=== PATIENT | female | born 1950 | race Caucasian/White ===

== ENCOUNTER 2017-04-20 11:35 | Emergency (ER) | payer MEDICARE, OTHER ==
[~2017-04-20] VITALS: Ht 160 cm; Wt 70.0 kg
[~2017-04-20 11:35] MED LIST: AMLO5 PO; ASPI81 PO; ESCI10TA PO; LOVA40TA PO; METO25 PO
[2017-04-20 11:49] VITALS: BP 154/90; PULSE 87; RESP 20; TEMP 97.3; O2SAT 97
--- NOTE | 2017-04-20 11:58 | PD ---
Physical Exam Time Seen by Provider: 11:57 Narrative 67 y/o female here with 2 weeks nausea, decreased appetite, vomiting, seen at urgent care and sent here. She reports some epigastric pain with palpation. Vital signs reviewed. Seen at triage desk. Awaiting bed placement. Data Data Last Documented VS Vital Signs Date Time Temp Pulse Resp B/P Pulse Ox O2 Delivery O2 Flow Rate FiO2 04/20/17 11:49 97.3 87 20 154/90 97 Room Air [facility] Medical Record Reviewed: Yes Supervised Visit with MARYJO: Oswaldo Kyle Apr 20, 2017 11:58
[2017-04-20 13:05] LABS: BLOOD, URINE SMALL (NEG); GLUCOSE,URINE 150 mg/dL (NEG); KETONE, URINE 10 mg/dL (NEG); NITRITE,URINE NEG (NEG); URINE COLOR YELLOW (YELLW/STRAW)
[2017-04-20 13:20] LABS: COMMENT (UR) CULT NOT INDICATED; CULTURE IF INDICATED CULT NOT INDICATED
[2017-04-20] MEDS ORDERED: PANTOPRAZOLE SODIUM 40 MG VIAL IV PUSH ONE (14:15)
[2017-04-20] MEDS ORDERED: MORPHINE SULFATE 8 MG/ML INJ IV PUSH ONE (14:15)
[2017-04-20] MEDS ORDERED: ONDANSETRON HCL 4 MG/2 ML VIAL IV PUSH ONE (14:15)
[2017-04-20] MEDS ORDERED: SODIUM CHLOR 0.9% 1000 ML INJ 1,000 ML IV ONE (14:15)
[2017-04-20] MEDS ORDERED: LISI10TA3 PO (14:21)
[2017-04-20] MEDS ORDERED: LOVA40TA PO (14:21)
--- NOTE | 2017-04-20 14:22 | PD ---
HPI Chief Complaint: Abdominal Pain Time Seen by Provider: 13:43 Travel History International Travel<30 days: No Contact w/Intl Traveler<30days: No Traveled to known affect area: No PFSH Past Medical History Arthritis: Yes Asthma: No Autoimmune Disease: No Blood Disorders: No Bipolar Disorder: Yes Anxiety: No Depression: No Heart Rhythm Problems: No Cancer: No Cardiovascular Problems: No High Cholesterol: Yes Chemotherapy: No Chest Pain: No Congestive Heart Failure: No COPD: No Cerebrovascular Accident: No Diabetes: Yes Patient Takes Glucophage: No Diminished Hearing: No Endocrine: Yes GERD: No Genitourinary: No Headaches: No Hepatitis: No Hiatal Hernia: No Hypertension: Yes Immune Disorder: No Implanted Vascular Access Dvce: Yes Kidney Stones: No Musculoskeletal: No Neurologic: No Psychiatric: Yes (Major depressive disorder, recurrent) Reproductive: No Respiratory: No Migraines: No Radiation Therapy: No Renal Failure: No Seizures: No Sickle Cell Disease: No Sleep Apnea: No Thyroid Disease: No Triglycerides - High: Yes Ulcer: No PNEUMOCCOCAL Vaccine (Year): 2009 Menopausal: Yes Past Surgical History Abdominal Surgery: No AICD: No Arteriovenous Shunt: No Cardiac Surgery: No Ear Surgery: No Endocrine Surgery: No Eye Surgery: No Genitourinary Surgery: No Gynecologic Surgery: No Hysterectomy: Yes Insulin Pump: No Joint Replacement: Yes (LEFT HIP AND KNEE) Oral Surgery: No Pacemaker: No Thoracic Surgery: No Other Surgery: Yes (HYSTERECTOMY 1982 12/11 ARTHROSCOPIC L KNEE) Social History Alcohol Use: Yes (OCC, HX ETOH ABUSE) Tobacco Use: No Substance Use: No Allergies-Medications (Allergen,Severity, Reaction): Coded Allergies: Codeine (Verified Allergy, Severe, Hives, 04/20/17) Penicillin (Unverified Allergy, Unknown, 04/20/17) Reported Meds & Prescriptions Reported Meds & Active Scripts Active Protonix (Pantoprazole Sodium) 40 Mg Tab 40 Mg PO DAILY Reported Lisinopril 10 Mg Tab 10 Mg PO DAILY Lovastatin 40 Mg Tab 40 Mg PO DAILY Data Data Last Documented VS Vital Signs Date Time Temp Pulse Resp B/P Pulse Ox O2 Delivery O2 Flow Rate FiO2 04/20/17 11:56 04/20/17 11:49 97.3 87 20 97 Room Air Orders Complete Blood Count With Diff (04/20/17 12:20) Comprehensive Metabolic Panel (04/20/17 12:20) Lipase (04/20/17 12:20) Urinalysis - C+S If Indicated (04/20/17 12:20) Ct Abd/Pel W Iv Contrast(Rout) (04/20/17 ) Sodium Chlor 0.9% 1000 Ml Inj (Ns 1000 M (04/20/17 14:15) Ondansetron Inj (Zofran Inj) (04/20/17 14:15) Morphine Inj (Morphine Inj) (04/20/17 14:15) Pantoprazole Inj (Protonix Inj) (04/20/17 14:15) Electrocardiogram (04/20/17 ) Stone Cutter / Telemetry ESSIE.[id number] (04/20/17 14:14) Iohexol 350 Inj (Omnipaque 350 Inj) (04/20/17 16:35) Troponin I (04/20/17 14:15) Labs Laboratory Tests Test 04/20/17 04/20/17 12:40 14:15 Urine Color YELLOW Urine Turbidity CLEAR Urine pH 6.0 Urine Specific [place] 1.008 Urine Protein NEG mg/dL Urine Glucose (UA) 150 mg/dL Urine Ketones 10 mg/dL Urine Occult Blood SMALL Urine Nitrite NEG Urine Bilirubin NEG Urine Urobilinogen LESS THAN 2.0 MG/DL Urine Leukocyte Esterase NEG Urine RBC 2 /hpf Urine WBC LESS THAN 1 /hpf Microscopic Urinalysis Comment CULT NOT INDICATED White Blood Count 11.0 TH/MM3 Red Blood Count 4.22 MIL/MM3 Hemoglobin 13.5 GM/DL Hematocrit 38.6 % Mean Corpuscular Volume 91.4 FL Mean Corpuscular Hemoglobin 31.9 PG Mean Corpuscular Hemoglobin 34.9 % Concent Red Cell Distribution Width 13.5 % Platelet Count 349 TH/MM3 Mean Platelet Volume 7.0 FL Neutrophils (%) (Auto) 80.4 % Lymphocytes (%) (Auto) 11.7 % Monocytes (%) (Auto) 5.8 % Eosinophils (%) (Auto) 1.7 % Basophils (%) (Auto) 0.4 % Neutrophils # (Auto) 8.8 TH/MM3 Lymphocytes # (Auto) 1.3 TH/MM3 Monocytes # (Auto) 0.6 TH/MM3 Eosinophils # (Auto) 0.2 TH/MM3 Basophils # (Auto) 0.0 TH/MM3 CBC Comment DIFF FINAL Differential Comment Sodium Level 131 MEQ/L Potassium Level 4.5 MEQ/L Chloride Level 93 MEQ/L Carbon Dioxide Level 26.1 MEQ/L Anion Gap 12 MEQ/L Blood Urea Nitrogen 10 MG/DL Creatinine 0.71 MG/DL Estimat Glomerular Filtration 82 ML/MIN Rate Random Glucose 130 MG/DL Calcium Level 9.4 MG/DL Total Bilirubin 0.5 MG/DL Aspartate Amino Transf 23 U/L (AST/SGOT) Alanine Aminotransferase 29 U/L (ALT/SGPT) Alkaline Phosphatase 59 U/L Troponin I LESS THAN 0.02 NG/ML Total Protein 8.0 GM/DL Albumin 4.0 GM/DL Lipase 118 U/L MDM Scripts Pantoprazole (Protonix)40 Mg Tab40 Mg PO DAILY #30 TAB Ref 0 Prov:Rajinder Mancuso MD 04/20/17 Rajinder Mancuso MD Apr 20, 2017 14:22
[2017-04-20 14:35] LABS: AUTOMATED NEUTROPHIL # 8.8 TH/MM3 (1.8-7.7); BASOPHIL % 0.4 % (0.0-2.0); EOSINOPHIL # 0.2 TH/MM3 (0-0.4); EOSINOPHIL % 1.7 % (0.0-4.0); HEMATOCRIT 38.6 % (35.0-46.0); HEMO FLAGS DIFF FINAL; LYMPH % 11.7 % (9.0-44.0); LYMPHOCYTE # 1.3 TH/MM3 (1.0-4.8); MEAN CELL VOLUME 91.4 FL (80.0-100.0); MEAN CORPUSCULAR HEMOGLOBIN 31.9 PG (27.0-34.0); MEAN CORPUSCULAR HGB CONC 34.9 % (32.0-36.0); MONO % 5.8 % (0.0-8.0); NEUT % 80.4 % (16.0-70.0); PLATELET COUNT 349 TH/MM3 (150-450); RED BLOOD COUNT 4.22 MIL/MM3 (4.00-5.30); RED CELL DISTRIBUTION WIDTH 13.5 % (11.6-17.2)
[2017-04-20 14:52] LABS: ALT (GPT) 29 U/L (10-53); ANION GAP 12 MEQ/L (5-15); AST (GOT) 23 U/L (15-37); BICARBONATE 26.1 MEQ/L (21.0-32.0); BLOOD UREA NITROGEN 10 MG/DL (7-18); CHLORIDE 93 MEQ/L (98-107); GLOMERULAR FILTRATION RATE 82 ML/MIN (>89); POTASSIUM 4.5 MEQ/L (3.5-5.1); SODIUM (NA) 131 MEQ/L (136-145)
[2017-04-20 14:55] LABS: ALKALINE PHOSPHATASE 59 U/L (45-117); TOTAL BILIRUBIN ADULT 0.5 MG/DL (0.2-1.0)
--- NOTE | 2017-04-20 16:13 | PD ---
HPI Chief Complaint: Abdominal Pain Time Seen by Provider: 13:43 Travel History International Travel<30 days: No Contact w/Intl Traveler<30days: No Traveled to known affect area: No History of Present Illness HPI 67-year-old female came to the emergency room with history of poor appetite for past 2 weeks. Patient says she has lost 5 pounds. She has been feeling very weak and dizzy. She went to see her primary care today because of this but was unable to make it to her office and decided to come here instead. Patient has history of pancreatitis in the past. She had quit drinking for 5 years but started again and has drank a lot over the past couple weeks. Her primary care thinks it could be pancreatitis again. She has been nauseous. Her last drink was today. She drank some beer. [facility] Past Medical History Narrative Medical List of her past medical, surgical, social and family history was reviewed from the nursing note. Arthritis: Yes Asthma: No Autoimmune Disease: No Blood Disorders: No Bipolar Disorder: Yes Anxiety: No Depression: No Heart Rhythm Problems: No Cancer: No Cardiovascular Problems: No High Cholesterol: Yes Chemotherapy: No Chest Pain: No Congestive Heart Failure: No COPD: No Cerebrovascular Accident: No Diabetes: Yes Patient Takes Glucophage: No Diminished Hearing: No Endocrine: Yes GERD: No Genitourinary: No Headaches: No Hepatitis: No Hiatal Hernia: No Hypertension: Yes Immune Disorder: No Implanted Vascular Access Dvce: Yes Kidney Stones: No Musculoskeletal: No Neurologic: No Psychiatric: Yes (Major depressive disorder, recurrent) Reproductive: No Respiratory: No Migraines: No Radiation Therapy: No Renal Failure: No Seizures: No Sickle Cell Disease: No Sleep Apnea: No Thyroid Disease: No Triglycerides - High: Yes Ulcer: No PNEUMOCCOCAL Vaccine (Year): 2009 Menopausal: Yes Past Surgical History Abdominal Surgery: No AICD: No Arteriovenous Shunt: No Cardiac Surgery: No Ear Surgery: No Endocrine Surgery: No Eye Surgery: No Genitourinary Surgery: No Gynecologic Surgery: No Hysterectomy: Yes Insulin Pump: No Joint Replacement: Yes (LEFT HIP AND KNEE) Oral Surgery: No Pacemaker: No Thoracic Surgery: No Other Surgery: Yes (HYSTERECTOMY 1982 12/11 ARTHROSCOPIC L KNEE) Social History Alcohol Use: Yes (OCC, HX ETOH ABUSE) Tobacco Use: No Substance Use: No Allergies-Medications (Allergen,Severity, Reaction): Coded Allergies: Codeine (Verified Allergy, Severe, Hives, 04/20/17) Penicillin (Unverified Allergy, Unknown, 04/20/17) Comments List of her allergies reviewed from the nursing note. Reported Meds & Prescriptions Reported Meds & Active Scripts Active Protonix (Pantoprazole Sodium) 40 Mg Tab 40 Mg PO DAILY Reported Lisinopril 10 Mg Tab 10 Mg PO DAILY Lovastatin 40 Mg Tab 40 Mg PO DAILY Narrative Medication List of her home medications reviewed from the nursing note. Review of Systems Except as stated in HPI: all other systems reviewed are Neg Physical Exam Narrative GENERAL: Awake, alert, moderate distress SKIN: Focused skin assessment warm/dry. HEAD: Atraumatic. Normocephalic. EYES: Pupils equal and round. No scleral icterus. No injection or drainage. ENT: No nasal bleeding or discharge. Mucous membranes pink and moist. NECK: Trachea midline. No JVD. CARDIOVASCULAR: Regular rate and rhythm. No murmur appreciated. RESPIRATORY: No accessory muscle use. Clear to auscultation. Breath sounds equal bilaterally. GASTROINTESTINAL: Abdomen soft, tender over the epigastric area., nondistended. Hepatic and splenic margins not palpable. MUSCULOSKELETAL: No obvious deformities. No clubbing. No cyanosis. No edema. NEUROLOGICAL: Awake and alert. No obvious cranial nerve deficits. Motor grossly within normal limits. Normal speech. PSYCHIATRIC: Appropriate mood and affect; insight and judgment normal. Data Data Last Documented VS Vital Signs Date Time Temp Pulse Resp B/P Pulse Ox O2 Delivery O2 Flow Rate FiO2 04/20/17 11:56 04/20/17 11:49 97.3 87 20 97 Room Air Orders Complete Blood Count With Diff (04/20/17 12:20) Comprehensive Metabolic Panel (04/20/17 12:20) Lipase (04/20/17 12:20) Urinalysis - C+S If Indicated (04/20/17 12:20) Ct Abd/Pel W Iv Contrast(Rout) (04/20/17 ) Sodium Chlor 0.9% 1000 Ml Inj (Ns 1000 M (04/20/17 14:15) Ondansetron Inj (Zofran Inj) (04/20/17 14:15) Morphine Inj (Morphine Inj) (04/20/17 14:15) Pantoprazole Inj (Protonix Inj) (04/20/17 14:15) Electrocardiogram (04/20/17 ) Spray Booth Operator / Telemetry ESSIE.Q8H (04/20/17 14:14) Iohexol 350 Inj (Omnipaque 350 Inj) (04/20/17 16:35) Troponin I (04/20/17 14:15) Labs Laboratory Tests Test 04/20/17 04/20/17 12:40 14:15 Urine Color YELLOW Urine Turbidity CLEAR Urine pH 6.0 Urine Specific [place] 1.008 Urine Protein NEG mg/dL Urine Glucose (UA) 150 mg/dL Urine Ketones 10 mg/dL Urine Occult Blood SMALL Urine Nitrite NEG Urine Bilirubin NEG Urine Urobilinogen LESS THAN 2.0 MG/DL Urine Leukocyte Esterase NEG Urine RBC 2 /hpf Urine WBC LESS THAN 1 /hpf Microscopic Urinalysis Comment CULT NOT INDICATED White Blood Count 11.0 TH/MM3 Red Blood Count 4.22 MIL/MM3 Hemoglobin 13.5 GM/DL Hematocrit 38.6 % Mean Corpuscular Volume 91.4 FL Mean Corpuscular Hemoglobin 31.9 PG Mean Corpuscular Hemoglobin 34.9 % Concent Red Cell Distribution Width 13.5 % Platelet Count 349 TH/MM3 Mean Platelet Volume 7.0 FL Neutrophils (%) (Auto) 80.4 % Lymphocytes (%) (Auto) 11.7 % Monocytes (%) (Auto) 5.8 % Eosinophils (%) (Auto) 1.7 % Basophils (%) (Auto) 0.4 % Neutrophils # (Auto) 8.8 TH/MM3 Lymphocytes # (Auto) 1.3 TH/MM3 Monocytes # (Auto) 0.6 TH/MM3 Eosinophils # (Auto) 0.2 TH/MM3 Basophils # (Auto) 0.0 TH/MM3 CBC Comment DIFF FINAL Differential Comment Sodium Level 131 MEQ/L Potassium Level 4.5 MEQ/L Chloride Level 93 MEQ/L Carbon Dioxide Level 26.1 MEQ/L Anion Gap 12 MEQ/L Blood Urea Nitrogen 10 MG/DL Creatinine 0.71 MG/DL Estimat Glomerular Filtration 82 ML/MIN Rate Random Glucose 130 MG/DL Calcium Level 9.4 MG/DL Total Bilirubin 0.5 MG/DL Aspartate Amino Transf 23 U/L (AST/SGOT) Alanine Aminotransferase 29 U/L (ALT/SGPT) Alkaline Phosphatase 59 U/L Troponin I LESS THAN 0.02 NG/ML Total Protein 8.0 GM/DL Albumin 4.0 GM/DL Lipase 118 U/L MDM Medical Decision Making Medical Screen Exam Complete: Yes Emergency Medical Condition: Yes Medical Record Reviewed: Yes Interpretation(s) Twelve-lead EKG was reviewed by me. Normal sinus rhythm, right axis deviation, right bundle branch block. Heart rate of 71 bpm. Differential Diagnosis Acute pancreatitis, pancreatic cancer, intra-abdominal cancer, acute cholecystitis Narrative Course 4:12 PM blood test results of back and her sodium is low. Patient has been given 1 L of IV fluid bolus. Awaiting for the CAT scan to be done and resulted. She was given pain medication. 5:10 PM blood test results of back and within normal limit. CAT scan is back in its normal. I'll discharge her home. Procedures EKG Prior to Arrival: No Diagnosis Primary Impression: History of alcohol abuse Additional Impressions: Acute gastritis Qualified Code: K29.00 - Acute gastritis without hemorrhage, unspecified gastritis type Abdominal pain Qualified Code: R10.13 - Epigastric pain Hyponatremia Referrals: Primary Care Physician Additional Instructions: Return to the ER if the condition worsens or any other new concerns. Otherwise follow-up with her primary care. Do not drink alcohol. Take the medication as per the prescription direction. Med/Other Pt SpecificInfo: Prescription(s) given Scripts Pantoprazole (Protonix)40 Mg Tab40 Mg PO DAILY #30 TAB Ref 0 Prov:Rajinder Mancuso MD 04/20/17 Disposition: 01 DISCHARGE HOME Condition: Stable Rajinder Mancuso MD Apr 20, 2017 16:13
[2017-04-20] MEDS ORDERED: IOHEXOL 350 MG/ML 10 ML VIAL (for RAD DIAG) IV ONE (16:35)
--- NOTE | 2017-04-20 16:46 | RADRPT ---
EXAM DATE/TIME: 04/20/2017 16:15 [place] COMPARISON: No previous studies available for comparison. INDICATIONS : Left lower abdomen pain and general weakness for three days. IV CONTRAST: 71 cc Omnipaque 350 (iohexol) IV ORAL CONTRAST: No oral contrast ingested. RADIATION DOSE: 9.96 CTDIvol (mGy) MEDICAL HISTORY : Hypertension. Pancreatitis. diabetes SURGICAL HISTORY : None. ENCOUNTER: Initial ACUITY: 3 days PAIN SCALE: 5/10 LOCATION: Left lower quadrant TECHNIQUE: Volumetric scanning of the abdomen and pelvis was performed. Using automated exposure control and ad justment of the mA and/or kV according to patient size, radiation dose was kept as low as reasonably achievable to obtain optimal diagnostic quality images. DICOM format image data is available electro nically for review and comparison. FINDINGS: LOWER LUNGS: The visualized lower lungs are clear. Small hiatal hernia. LIVER: Homogeneous density without lesion. There is no dilation of the biliary tree. No calcified gallston es. SPLEEN: Normal size without lesion. PANCREAS: Within normal limits. KIDNEYS: Normal in size and shape. There is no mass, stone or hydronephrosis. ADRENAL GLANDS: Within normal limits. VASCULAR: There is no aortic aneurysm. BOWEL/MESENTERY: The stomach, small bowel, and colon demonstrate no acute abnormality. There is no free intraperitone al air or fluid. ABDOMINAL WALL: Within normal limits. RETROPERITONEUM: There is no lymphadenopathy. BLADDER: No wall thickening or mass. REPRODUCTIVE: Within normal limits. INGUINAL: There is no lymphadenopathy or hernia. MUSCULOSKELETAL: Within normal limits for patient age. Left total hip arthroplasty. CONCLUSION: Small hiatal hernia. The bladder is distended. Paco Guidry MD on April 20, 2017 at 16:43 Board Certified Radiologist. This report was verified electronically.
[2017-04-20] MEDS ORDERED: PROT40TA PO (17:14)
--- NOTE | 2017-04-21 14:55 | EKG ---
Date Performed: 04/20/2017 Time Performed: 14:42:46 PTAGE: 67 years EKG: Sinus rhythm RIGHT BUNDLE BRANCH BLOCK LEFT ANTERIOR FASCICULAR BLOCK POSSIBLE ANTERIOR MYOCARDIAL INFARCTION ABN ORMAL ECG PREVIOUS TRACING : 06/09/2016 07.47 Compared to prior tracing no significant change DOCTOR: Harmeet Barreto Interpretating Date/Time 04/21/2017 14:52:09
== END 2017-04-20 17:26 | disposition home or self-care (01) ==
LOC: NEPD 11:35
DX: K29.00 Acute gastritis without bleeding (principal); E87.1 Hypo-osmolality and hyponatremia; F10.10 Alcohol abuse, uncomplicated
CPT/HCPCS: 74177; 80053; 81001; 83690; 84484; 85025; 93005; 96361; 96374; 96375; 99285; C9113; J2270; J2405; J7030; Q9967

== ENCOUNTER 2017-06-14 14:59 | Emergency (ER) | payer OTHER ==
[~2017-06-14] VITALS: Ht 160 cm; Wt 71.5 kg
[~2017-06-14 14:59] MED LIST changes: -AMLO5 PO; -ASPI81 PO; -ESCI10TA PO; +LISI10TA3 PO; -METO25 PO; +PROT40TA PO
[2017-06-14 15:01] VITALS: BP 174/93; PULSE 107; RESP 13; TEMP 97.8; O2SAT 98
[2017-06-14] MEDS ORDERED: FLUO10TA PO (16:04)
[2017-06-14] MEDS ORDERED: RISP2TAB2 PO (16:04)
[2017-06-14] MEDS ORDERED: FLUO20CA12 PO (16:04)
[2017-06-14] MEDS ORDERED: LAMO150T PO (16:04)
[2017-06-14] MEDS ORDERED: METF1000 PO (16:04)
[2017-06-14] MEDS ORDERED: SODIUM CHLOR 0.9% 1000 ML INJ 1,000 ML IV ONE (16:15)
--- NOTE | 2017-06-14 16:18 | PD ---
HPI Chief Complaint: Medical Clearance Time Seen by Provider: 16:02 Travel History International Travel<30 days: No Contact w/Intl Traveler<30days: No Traveled to known affect area: No History of Present Illness HPI This is a 67-year-old female who presents to the emergency department with depression. She says she hasn't been eating and drinking for the last 5 days. She says she just hasn't had an appetite. She feels hopeless and worthless and just doesn't feel like doing it anymore. She denies any suicidal ideation. She says she does drink alcohol but not every day. She says that she is on Prozac and Risperdal. She hasn't been taking her Prozac because it hasn't been working. She was started on a 2 months ago and her doctor told her that if she Would Make Her Feel Better but She Doesn't Feel like It's Been Helping. Her Symptoms of Been Constant and Severe. PFSH Past Medical History Arthritis: Yes Asthma: No Autoimmune Disease: No Blood Disorders: No Bipolar Disorder: Yes Anxiety: No Depression: No Heart Rhythm Problems: No Cancer: No Cardiovascular Problems: No High Cholesterol: Yes Chemotherapy: No Chest Pain: No Congestive Heart Failure: No COPD: No Cerebrovascular Accident: No Diabetes: Yes Patient Takes Glucophage: Yes Diminished Hearing: No Endocrine: Yes GERD: No Genitourinary: No Hepatitis: No Hiatal Hernia: No Hypertension: Yes Immune Disorder: No Implanted Vascular Access Dvce: Yes Kidney Stones: No Musculoskeletal: No Neurologic: No Psychiatric: Yes (Major depressive disorder, recurrent) Reproductive: No Respiratory: No Migraines: No Radiation Therapy: No Renal Failure: No Seizures: No Sickle Cell Disease: No Sleep Apnea: No Thyroid Disease: No Triglycerides - High: Yes Ulcer: No PNEUMOCCOCAL Vaccine (Year): 2009 Menopausal: Yes Past Surgical History Abdominal Surgery: No AICD: No Arteriovenous Shunt: No Cardiac Surgery: No Ear Surgery: No Endocrine Surgery: No Eye Surgery: No Genitourinary Surgery: No Gynecologic Surgery: No Hysterectomy: Yes Insulin Pump: No Joint Replacement: Yes (LEFT HIP AND KNEE) Oral Surgery: No Pacemaker: No Thoracic Surgery: No Social History Alcohol Use: Yes (OCC, HX ETOH ABUSE) Tobacco Use: No Substance Use: No Allergies-Medications (Allergen,Severity, Reaction): Coded Allergies: codeine (Unverified Allergy, Severe, Hives, 06/14/17) penicillin G (Unverified Allergy, Unknown, 06/14/17) Reported Meds & Prescriptions Reported Meds & Active Scripts Active Reported Relion Prime Blood Glucose Monitor (Device) 1 Mis Mis Kit OTHER DIRECTED Ibuprofen 200 Mg Tab 200 Mg PO Q6H PRN Diphenhydramine (Diphenhydramine HCl) 25 Mg Tab 25 Mg PO Q6H PRN Fluoxetine (Fluoxetine HCl) 20 Mg Capsule 30 Mg PO DAILY Lamotrigine 150 Mg Tab 150 Mg PO DAILY Risperidone 2 Mg Tab 2 Mg PO DAILY Metformin (Metformin HCl) 1,000 Mg Tab 1,000 Mg PO BIDPC With meals Lovastatin 40 Mg Tab 40 Mg PO DAILY Review of Systems Except as stated in HPI: all other systems reviewed are Neg Physical Exam Narrative GENERAL:Well appearing, no acute distress SKIN: Focused skin assessment warm and dry. HEAD: Atraumatic. Normocephalic. EYES: Pupils equal and round. No injection or drainage. ENT: Dry mucous membranes NECK: Trachea midline. CARDIOVASCULAR: Regular rate and rhythm. No murmur appreciated. RESPIRATORY: Clear to auscultation. Breath sounds equal bilaterally. GASTROINTESTINAL: Abdomen soft, non-tender, nondistended. MUSCULOSKELETAL: No obvious deformities. NEUROLOGICAL: Awake and alert. No obvious cranial nerve deficits. Moving all extremities. PSYCHIATRIC: Depressed mood, flat affect Data Data Last Documented VS Vital Signs Date Time Temp Pulse Resp B/P (MAP) Pulse Ox O2 Delivery O2 Flow Rate FiO2 06/15/17 13:26 06/15/17 13:24 68 18 96 Room Air 06/14/17 19:12 98.6 Orders Orders Complete Blood Count With Diff (06/14/17 16:06) Comprehensive Metabolic Panel (06/14/17 16:06) Psych Screen (06/14/17 16:06) ^ Insert Iv (06/14/17 16:06) Thyroid Stimulating Hormone (06/14/17 16:06) Urinalysis - C+S If Indicated (06/14/17 16:06) Sodium Chlor 0.9% 1000 Ml Inj (Ns 1000 M (06/14/17 16:15) Electrocardiogram (06/14/17 ) Troponin I (06/14/17 16:06) Alcohol (Ethanol) (06/14/17 16:59) Drug Screen, Random Urine (06/14/17 16:59) Urine Culture (06/14/17 17:45) Diet Diabetic (06/15/17 Breakfast) Diet Regular Basic (06/15/17 Lunch) Diet Regular Basic (06/15/17 Dinner) Labs Laboratory Tests Test 06/14/17 16:25 06/14/17 17:45 White Blood Count 11.7 TH/MM3 Red Blood Count 4.16 MIL/MM3 Hemoglobin 13.1 GM/DL Hematocrit 38.7 % Mean Corpuscular Volume 92.9 FL Mean Corpuscular Hemoglobin 31.5 PG Mean Corpuscular Hemoglobin Concent 33.8 % Red Cell Distribution Width 14.0 % Platelet Count 439 TH/MM3 Mean Platelet Volume 6.8 FL Neutrophils (%) (Auto) 79.4 % Lymphocytes (%) (Auto) 13.0 % Monocytes (%) (Auto) 6.5 % Eosinophils (%) (Auto) 0.6 % Basophils (%) (Auto) 0.5 % Neutrophils # (Auto) 9.3 TH/MM3 Lymphocytes # (Auto) 1.5 TH/MM3 Monocytes # (Auto) 0.8 TH/MM3 Eosinophils # (Auto) 0.1 TH/MM3 Basophils # (Auto) 0.1 TH/MM3 CBC Comment DIFF FINAL Differential Comment Blood Urea Nitrogen 12 MG/DL Creatinine 0.85 MG/DL Random Glucose 125 MG/DL Total Protein 7.6 GM/DL Albumin 3.9 GM/DL Calcium Level 9.0 MG/DL Alkaline Phosphatase 58 U/L Aspartate Amino Transf (AST/SGOT) 17 U/L Alanine Aminotransferase (ALT/SGPT) 21 U/L Total Bilirubin 0.4 MG/DL Sodium Level 129 MEQ/L Potassium Level 3.9 MEQ/L Chloride Level 95 MEQ/L Carbon Dioxide Level 23.7 MEQ/L Anion Gap 10 MEQ/L Estimat Glomerular Filtration Rate 67 ML/MIN Troponin I LESS THAN 0.02 NG/ML Thyroid Stimulating Hormone 3rd Gen 1.840 uIU/ML Ethyl Alcohol Level LESS THAN 2 MG/DL Urine Color LIGHT-YELLOW Urine Turbidity CLEAR Urine pH 5.5 Urine Specific [place] 1.005 Urine Protein NEG mg/dL Urine Glucose (UA) NEG mg/dL Urine Ketones NEG mg/dL Urine Occult Blood TRACE Urine Nitrite NEG Urine Bilirubin NEG Urine Urobilinogen LESS THAN 2.0 MG/DL Urine Leukocyte Esterase MOD Urine RBC 1 /hpf Urine WBC 17 /hpf Urine Squamous Epithelial Cells <1 /hpf Microscopic Urinalysis Comment CULTURE INDICATED Urine Opiates Screen NEG Urine Barbiturates Screen NEG Urine Amphetamines Screen NEG Urine Benzodiazepines Screen NEG Urine Cocaine Screen NEG Urine Cannabinoids Screen NEG MDM Medical Decision Making Medical Screen Exam Complete: Yes Emergency Medical Condition: Yes Medical Record Reviewed: Yes (patient has been admitted multiple times in the setting of intentional overdose in the past) Differential Diagnosis Depression, substance induced mood disorder, adjustment reaction Narrative Course This is a 67-year-old female who presents to the emergency department with depression. 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 Labs will be obtained and patient will be evaluated by psychiatry. Diamond Chu MD Jun 14, 2017 16:17
[2017-06-14 16:53] LABS: AUTOMATED NEUTROPHIL # 9.3 TH/MM3 (1.8-7.7); BASOPHIL # 0.1 TH/MM3 (0-0.2); BASOPHIL % 0.5 % (0.0-2.0); EOSINOPHIL # 0.1 TH/MM3 (0-0.4); EOSINOPHIL % 0.6 % (0.0-4.0); HEMATOCRIT 38.7 % (35.0-46.0); HEMO FLAGS DIFF FINAL; LYMPHOCYTE # 1.5 TH/MM3 (1.0-4.8); MEAN CELL VOLUME 92.9 FL (80.0-100.0); MEAN CORPUSCULAR HEMOGLOBIN 31.5 PG (27.0-34.0); MEAN CORPUSCULAR HGB CONC 33.8 % (32.0-36.0); MONO % 6.5 % (0.0-8.0); NEUT % 79.4 % (16.0-70.0); PLATELET COUNT 439 TH/MM3 (150-450); RED BLOOD COUNT 4.16 MIL/MM3 (4.00-5.30); WHITE BLOOD COUNT 11.7 TH/MM3 (4.0-11.0)
[2017-06-14 17:17] LABS: ALT (GPT) 21 U/L (10-53); ANION GAP 10 MEQ/L (5-15); AST (GOT) 17 U/L (15-37); BICARBONATE 23.7 MEQ/L (21.0-32.0); BLOOD UREA NITROGEN 12 MG/DL (7-18); CHLORIDE 95 MEQ/L (98-107); GLOMERULAR FILTRATION RATE 67 ML/MIN (>89); POTASSIUM 3.9 MEQ/L (3.5-5.1); SODIUM (NA) 129 MEQ/L (136-145)
[2017-06-14 17:21] LABS: ALKALINE PHOSPHATASE 58 U/L (45-117); TOTAL BILIRUBIN ADULT 0.4 MG/DL (0.2-1.0)
--- NOTE | 2017-06-14 17:46 | PD ---
Physical Exam Narrative Received sign out from previous team to follow up labs and medically clear for psych evaluation. 67yo F with PMH of depression here with feelings of hopelessness. Pt states she has been feeling more depressed since starting prozac 2 months ago and has not really want to eat since she is so depressed. She has not been wanting to do anything but sit in the chair. States she is a little hungry and would try to eat. Denies any other complaints. She wants to see a psychiatrist. Labs reviewed, WBC 11.7. Mild hyponatremia at 129. Pt had history of hyponatremia and Na was 131 last time. Pt given NS IVFx1. TSH normal. Troponin negative. Glucose 125. Alcohol negative. Utox negative. UA negative. Pt is medically clear for psych evaluation. Data Data Last Documented VS Vital Signs Date Time Temp Pulse Resp B/P (MAP) Pulse Ox O2 Delivery O2 Flow Rate FiO2 06/14/17 15:01 97.8 107 13 174/93 (120) 98 Orders Orders Complete Blood Count With Diff (06/14/17 16:06) Comprehensive Metabolic Panel (06/14/17 16:06) Psych Screen (06/14/17 16:06) ^ Insert Iv (06/14/17 16:06) Thyroid Stimulating Hormone (06/14/17 16:06) Urinalysis - C+S If Indicated (06/14/17 16:06) Sodium Chlor 0.9% 1000 Ml Inj (Ns 1000 M (06/14/17 16:15) Electrocardiogram (06/14/17 ) Troponin I (06/14/17 16:06) Alcohol (Ethanol) (06/14/17 16:59) Drug Screen, Random Urine (06/14/17 16:59) Urine Culture (06/14/17 17:45) Labs Laboratory Tests Test 06/14/17 16:25 06/14/17 17:45 White Blood Count 11.7 TH/MM3 Red Blood Count 4.16 MIL/MM3 Hemoglobin 13.1 GM/DL Hematocrit 38.7 % Mean Corpuscular Volume 92.9 FL Mean Corpuscular Hemoglobin 31.5 PG Mean Corpuscular Hemoglobin Concent 33.8 % Red Cell Distribution Width 14.0 % Platelet Count 439 TH/MM3 Mean Platelet Volume 6.8 FL Neutrophils (%) (Auto) 79.4 % Lymphocytes (%) (Auto) 13.0 % Monocytes (%) (Auto) 6.5 % Eosinophils (%) (Auto) 0.6 % Basophils (%) (Auto) 0.5 % Neutrophils # (Auto) 9.3 TH/MM3 Lymphocytes # (Auto) 1.5 TH/MM3 Monocytes # (Auto) 0.8 TH/MM3 Eosinophils # (Auto) 0.1 TH/MM3 Basophils # (Auto) 0.1 TH/MM3 CBC Comment DIFF FINAL Differential Comment Blood Urea Nitrogen 12 MG/DL Creatinine 0.85 MG/DL Random Glucose 125 MG/DL Total Protein 7.6 GM/DL Albumin 3.9 GM/DL Calcium Level 9.0 MG/DL Alkaline Phosphatase 58 U/L Aspartate Amino Transf (AST/SGOT) 17 U/L Alanine Aminotransferase (ALT/SGPT) 21 U/L Total Bilirubin 0.4 MG/DL Sodium Level 129 MEQ/L Potassium Level 3.9 MEQ/L Chloride Level 95 MEQ/L Carbon Dioxide Level 23.7 MEQ/L Anion Gap 10 MEQ/L Estimat Glomerular Filtration Rate 67 ML/MIN Troponin I LESS THAN 0.02 NG/ML Thyroid Stimulating Hormone 3rd Gen 1.840 uIU/ML Ethyl Alcohol Level LESS THAN 2 MG/DL Urine Color LIGHT-YELLOW Urine Turbidity CLEAR Urine pH 5.5 Urine Specific [place] 1.005 Urine Protein NEG mg/dL Urine Glucose (UA) NEG mg/dL Urine Ketones NEG mg/dL Urine Occult Blood TRACE Urine Nitrite NEG Urine Bilirubin NEG Urine Urobilinogen LESS THAN 2.0 MG/DL Urine Leukocyte Esterase MOD Urine RBC 1 /hpf Urine WBC 17 /hpf Urine Squamous Epithelial Cells <1 /hpf Microscopic Urinalysis Comment CULTURE INDICATED Urine Opiates Screen NEG Urine Barbiturates Screen NEG Urine Amphetamines Screen NEG Urine Benzodiazepines Screen NEG Urine Cocaine Screen NEG Urine Cannabinoids Screen NEG MDM Supervised Visit with MARYJO: No Diagnosis Primary Impression: Depression Qualified Codes: F32.9 - Major depressive disorder, single episode, unspecified Crista Fuller DO Jun 14, 2017 17:46
[2017-06-14 18:24] LABS: BLOOD, URINE TRACE (NEG); COMMENT (UR) CULTURE INDICATED; CULTURE IF INDICATED CULTURE INDICATED; GLUCOSE,URINE NEG (NEG); KETONE, URINE NEG (NEG); NITRITE,URINE NEG (NEG); PH, URINE 5.5 (5.0-8.5); SQUAMOUS EPITHELIAL CELL URINE <1 /hpf (0-5); URINE COLOR LIGHT-YELLOW (YELLW/STRAW)
[2017-06-14 19:12] VITALS: BP 176/77; PULSE 63; RESP 14; TEMP 98.6; O2SAT 99
[2017-06-15 02:21] VITALS: BP 125/64; PULSE 61; RESP 19; O2SAT 99
[2017-06-15] MEDS ORDERED: DIPH25TA2 PO (02:29)
[2017-06-15] MEDS ORDERED: IBUP200T2 PO (02:32)
[2017-06-15] MEDS ORDERED: BLOOMIS OTHER (02:44)
[2017-06-15 06:31] VITALS: BP 147/79; PULSE 68; RESP 18; O2SAT 96
[2017-06-15 13:24] VITALS: BP 147/79; PULSE 68; RESP 18; O2SAT 96
--- NOTE | 2017-06-15 13:31 | PD ---
History of Present Illness Chief Complaint: Medical Clearance Time Seen by Provider: 13:15 Travel History International Travel<30 Days: No Contact w/Intl Traveler<30days: No Known affected area: No Legal Status Legal Status: Voluntary History of Present Illness: Very pleasant 67-year-old female presents with concerns about her antidepressant medication. She has ongoing significant depression for 2 months and is treated by Dr. Krishnan. He has placed her on Lamictal, Risperdal and Prozac. The Prozac is not working and in fact taking away her appetite. She denies suicidal ideation and would like to go home. This physician recommended she stop the Prozac and informed her the actual metabolites of Prozac will be in her system for a couple of weeks. Therefore she does not need to taper that medicine. She also wants to return to Dr. Krishnan for further treatment and this physician agrees. PFSH Past Medical History Arthritis: Yes Asthma: No Autoimmune Disease: No Blood Disorders: No Bipolar Disorder: Yes Anxiety: No Depression: No Heart Rhythm Problems: No Cancer: No Cardiovascular Problems: No High Cholesterol: Yes Chemotherapy: No Chest Pain: No Congestive Heart Failure: No COPD: No Cerebrovascular Accident: No Diabetes: Yes Patient Takes Glucophage: Yes Diminished Hearing: No Endocrine: Yes GERD: No Genitourinary: No Hepatitis: No Hiatal Hernia: No Hypertension: Yes Immune Disorder: No Implanted Vascular Access Dvce: Yes Kidney Stones: No Musculoskeletal: No Neurologic: No Psychiatric: Yes (Major depressive disorder, recurrent) Reproductive: No Respiratory: No Migraines: No Radiation Therapy: No Renal Failure: No Seizures: No Sickle Cell Disease: No Sleep Apnea: No Thyroid Disease: No Triglycerides - High: Yes Ulcer: No PNEUMOCCOCAL Vaccine (Year): 2009 Menopausal: Yes Past Surgical History Abdominal Surgery: No AICD: No Arteriovenous Shunt: No Cardiac Surgery: No Ear Surgery: No Endocrine Surgery: No Eye Surgery: No Genitourinary Surgery: No Gynecologic Surgery: No Hysterectomy: Yes Insulin Pump: No Joint Replacement: Yes (LEFT HIP AND KNEE) Oral Surgery: No Pacemaker: No Thoracic Surgery: No Psychiatric History Psychiatric History Hx Psychiatric Treatment: Patient with a hx of major depressive d/o and bipolar d/o. Past inpatient admissons at [facility] beginning 2009 through 2015 for intentional OD, major depression and alcohol abuse, to name a few. Patient last seen by in Dr. Guthrie's clinic May 29, 2016 for therapy and medication management. History of Inpatient Treatment: Yes Guns or firearms in home: No Social History Hx Alcohol Use: Yes (OCC, HX ETOH ABUSE) Hx Tobacco Use: No Hx Substance Use: Yes (alcohol abuse) Substance Use Type: Alcohol Hx of Substance Use Treatment: Yes Allergies-Medications (Allergen,Severity, Reaction): Coded Allergies: codeine (Unverified Allergy, Severe, Hives, 06/14/17) penicillin G (Unverified Allergy, Unknown, 06/14/17) Reported Meds & Prescriptions Reported Meds & Active Scripts Active Reported Relion Prime Blood Glucose Monitor (Device) 1 Mis Mis Kit OTHER DIRECTED Ibuprofen 200 Mg Tab 200 Mg PO Q6H PRN Diphenhydramine (Diphenhydramine HCl) 25 Mg Tab 25 Mg PO Q6H PRN Fluoxetine (Fluoxetine HCl) 20 Mg Capsule 30 Mg PO DAILY Lamotrigine 150 Mg Tab 150 Mg PO DAILY Risperidone 2 Mg Tab 2 Mg PO DAILY Metformin (Metformin HCl) 1,000 Mg Tab 1,000 Mg PO BIDPC With meals Lovastatin 40 Mg Tab 40 Mg PO DAILY Review of Systems Except as stated in HPI: all other systems reviewed are Neg Exam Alert: Yes [place]: Person, Place, Date, Situation Mood: Calm Affect: Appropriate Speech: Clear, Logical Eye Contact: Normal Memory Intact: Remote Insight/Judgement Adequate MDM Medical Decision Making Medical Record Reviewed: Yes Assessment/Plan 67-year-old female with depression and inadequate response to treatment. Patient does not want admission and she is verbally diane for safety. She has no psychotic symptoms and her cognition is intact. She is competent to contract for safety and will return to her physician for further treatment. She does not meet Lees act criteria or involuntary psychiatric hospitalization criteria. Orders Orders Complete Blood Count With Diff (06/14/17 16:06) Comprehensive Metabolic Panel (06/14/17 16:06) Psych Screen (06/14/17 16:06) ^ Insert Iv (06/14/17 16:06) Thyroid Stimulating Hormone (06/14/17 16:06) Urinalysis - C+S If Indicated (06/14/17 16:06) Sodium Chlor 0.9% 1000 Ml Inj (Ns 1000 M (06/14/17 16:15) Electrocardiogram (06/14/17 ) Troponin I (06/14/17 16:06) Alcohol (Ethanol) (06/14/17 16:59) Drug Screen, Random Urine (06/14/17 16:59) Urine Culture (06/14/17 17:45) Diet Diabetic (06/15/17 Breakfast) Diet Regular Basic (06/15/17 Lunch) Results Vital Signs Date Time Temp Pulse Resp B/P (MAP) Pulse Ox O2 Delivery O2 Flow Rate FiO2 06/15/17 06:31 68 18 147/79 (101) 96 Room Air 06/15/17 02:21 61 19 125/64 (84) 99 Room Air 06/14/17 19:12 98.6 63 14 176/77 (110) 99 Room Air 06/14/17 15:01 97.8 107 13 174/93 (120) 98 Laboratory Tests Test 06/14/17 16:25 06/14/17 17:45 White Blood Count 11.7 Red Blood Count 4.16 Hemoglobin 13.1 Hematocrit 38.7 Mean Corpuscular Volume 92.9 Mean Corpuscular Hemoglobin 31.5 Mean Corpuscular Hemoglobin Concent 33.8 Red Cell Distribution Width 14.0 Platelet Count 439 Mean Platelet Volume 6.8 Neutrophils (%) (Auto) 79.4 Lymphocytes (%) (Auto) 13.0 Monocytes (%) (Auto) 6.5 Eosinophils (%) (Auto) 0.6 Basophils (%) (Auto) 0.5 Neutrophils # (Auto) 9.3 Lymphocytes # (Auto) 1.5 Monocytes # (Auto) 0.8 Eosinophils # (Auto) 0.1 Basophils # (Auto) 0.1 CBC Comment DIFF FINAL Differential Comment Blood Urea Nitrogen 12 Creatinine 0.85 Random Glucose 125 Total Protein 7.6 Albumin 3.9 Calcium Level 9.0 Alkaline Phosphatase 58 Aspartate Amino Transf (AST/SGOT) 17 Alanine Aminotransferase (ALT/SGPT) 21 Total Bilirubin 0.4 Sodium Level 129 Potassium Level 3.9 Chloride Level 95 Carbon Dioxide Level 23.7 Anion Gap 10 Estimat Glomerular Filtration Rate 67 Troponin I LESS THAN 0.02 Thyroid Stimulating Hormone 3rd Gen 1.840 Ethyl Alcohol Level LESS THAN 2 Urine Color LIGHT-YELLOW Urine Turbidity CLEAR Urine pH 5.5 Urine Specific [place] 1.005 Urine Protein NEG Urine Glucose (UA) NEG Urine Ketones NEG Urine Occult Blood TRACE Urine Nitrite NEG Urine Bilirubin NEG Urine Urobilinogen LESS THAN 2.0 Urine Leukocyte Esterase MOD Urine RBC 1 Urine WBC 17 Urine Squamous Epithelial Cells <1 Microscopic Urinalysis Comment CULTURE INDICATED Urine Opiates Screen NEG Urine Barbiturates Screen NEG Urine Amphetamines Screen NEG Urine Benzodiazepines Screen NEG Urine Cocaine Screen NEG Urine Cannabinoids Screen NEG Date/Time Source Procedure Growth Status 06/14/17 17:45 Urine Clean Catch Urine Culture Pending Worksheet Diagnosis Primary Impression: Adjustment disorder with depressed mood Marco Antonio Rousseau MD Jun 15, 2017 13:30
--- NOTE | 2017-06-15 21:04 | EKG ---
Date Performed: 06/14/2017 Time Performed: 16:22:21 PTAGE: 67 years EKG: Sinus rhythm MARKED RIGHT AXIS DEVIATION RIGHT BUNDLE BRANCH BLOCK ANTERIOR MYOCARDIAL INFARCTION ABNORMAL ECG PREVIOUS TRACING 04/20/2017 @ 14.42 SINCE PREVIOUS TRACING, THERE ARE NOW DEFINITE Q WAVE ANTER IORLY COMPATIBLE WITH ANTERIOR MYOCARDIAL INFARCTION OF UNDETERMINED AGE. DOCTOR: Marco Antonio Johnson Interpretating Date/Time 06/15/2017 21:04:04
== END 2017-06-15 14:59 | disposition home or self-care (01) ==
LOC: NEPD 14:59 → NEPJ 06-15 14:59
DX: F43.21 Adjustment disorder with depressed mood (principal); E11.9 Type 2 diabetes mellitus without complications; I10 Essential (primary) hypertension; E87.1 Hypo-osmolality and hyponatremia; R94.31 Abnormal electrocardiogram [ECG] [EKG]; Z79.84 Long term (current) use of oral hypoglycemic drugs; Z79.899 Other long term (current) drug therapy
CPT/HCPCS: 80053; 80307; 81001; 84443; 84484; 85025; 87086; 93005; 96360; 96361; 99284; J7030

== ENCOUNTER 2017-07-10 11:33 | Emergency (ER) | payer OTHER ==
[~2017-07-10] VITALS: Ht 165.1 cm; Wt 65.0 kg
[~2017-07-10 11:33] MED LIST changes: +BLOOMIS OTHER; +DIPH25TA2 PO; +FLUO20CA12 PO; +IBUP200T2 PO; +LAMO150T PO; -LISI10TA3 PO; +METF1000 PO; -PROT40TA PO; +RISP2TAB2 PO
[2017-07-10 12:33] VITALS: BP 121/67; PULSE 105; RESP 20; TEMP 98; O2SAT 96
--- NOTE | 2017-07-10 13:09 | PD ---
HPI Chief Complaint: Psychiatric Symptoms Time Seen by Provider: 12:55 Travel History International Travel<30 days: No Contact w/Intl Traveler<30days: No Traveled to known affect area: No History of Present Illness HPI 67-year-old female with reported history of bipolar disorder and depression presents via EMS for evaluation. The patient reports that she has been binge drinking wine since yesterday. She reports that today she fell and hit the left side of her head. She is not complaining of a left-sided headache, some double vision. She told the neighbor that she was feeling suicidal however she is currently denying it. Per chart review she has been seen here several times in the past for overdose attempts. She is denying toxic ingestions or suicide attempts today or recently. Her primary complaint at this time is left- sided parietal headache from the fall. Pain is constant, aching, no aggravating or relieving factors. Denies nausea, vomiting, neck or back pain, chest pain or shortness of breath, abdominal pain. She has no other complaints. PFSH Past Medical History Arthritis: Yes Asthma: No Autoimmune Disease: No Blood Disorders: No Bipolar Disorder: Yes Anxiety: No Depression: No Heart Rhythm Problems: No Cancer: No Cardiovascular Problems: No High Cholesterol: Yes Chemotherapy: No Chest Pain: No Congestive Heart Failure: No COPD: No Cerebrovascular Accident: No Diabetes: Yes Patient Takes Glucophage: No Diminished Hearing: No Endocrine: Yes GERD: No Genitourinary: No Hepatitis: No Hiatal Hernia: No Hypertension: Yes Immune Disorder: No Implanted Vascular Access Dvce: Yes Kidney Stones: No Musculoskeletal: No Neurologic: No Psychiatric: Yes (Major depressive disorder, recurrent) Reproductive: No Respiratory: No Migraines: No Radiation Therapy: No Renal Failure: No Seizures: No Sickle Cell Disease: No Sleep Apnea: No Thyroid Disease: No Triglycerides - High: Yes Ulcer: No PNEUMOCCOCAL Vaccine (Year): 2009 Menopausal: Yes Past Surgical History Abdominal Surgery: No AICD: No Arteriovenous Shunt: No Cardiac Surgery: No Ear Surgery: No Endocrine Surgery: No Eye Surgery: No Genitourinary Surgery: No Gynecologic Surgery: No Hysterectomy: Yes Insulin Pump: No Joint Replacement: Yes (LEFT HIP AND KNEE) Oral Surgery: No Pacemaker: No Thoracic Surgery: No Social History Alcohol Use: Yes (OCC, HX ETOH ABUSE) Tobacco Use: No Substance Use: Yes (alcohol abuse) Allergies-Medications (Allergen,Severity, Reaction): Coded Allergies: codeine (Unverified Allergy, Severe, Hives, 06/14/17) penicillin G (Unverified Allergy, Unknown, 06/14/17) Reported Meds & Prescriptions Reported Meds & Active Scripts Active No Active Prescriptions or Reported Medications Physical Exam Narrative GENERAL: Well-developed well-nourished female. SKIN: Warm and dry. HEAD: Atraumatic. Normocephalic. EYES: Pupils equal and round. No scleral icterus. No injection or drainage. ENT: No nasal bleeding or discharge. Mucous membranes pink and moist. NECK: Trachea midline. No JVD. CARDIOVASCULAR: Regular rate and rhythm. No murmur appreciated. RESPIRATORY: No accessory muscle use. Clear to auscultation. Breath sounds equal bilaterally. GASTROINTESTINAL: Abdomen soft, non-tender, nondistended. Hepatic and splenic margins not palpable. MUSCULOSKELETAL: No obvious deformities. No clubbing. No cyanosis. No edema. NEUROLOGICAL: Awake and alert. No obvious cranial nerve deficits. Motor grossly within normal limits. Slurred speech. PSYCHIATRIC: Insight and judgment are impaired by intoxication. Data Data Last Documented VS Vital Signs Date Time Temp Pulse Resp B/P (MAP) Pulse Ox O2 Delivery O2 Flow Rate FiO2 07/10/17 18:31 100 20 146/77 (100) 100 Room Air 07/10/17 15:58 98.7 Orders Orders Complete Blood Count With Diff (07/10/17 12:40) Comprehensive Metabolic Panel (07/10/17 12:40) Psych Screen (07/10/17 12:40) Alcohol (Ethanol) (07/10/17 12:40) Prothrombin Time / Inr (Pt) (07/10/17 12:49) Act Partial Throm Time (Ptt) (07/10/17 12:49) Ct Brain W/O Iv Contrast(Rout) (07/10/17 ) Tylenol (Acetaminophen) (07/10/17 13:00) Salicylates (Aspirin) (07/10/17 13:00) Salicylates (Aspirin) (07/10/17 13:01) Tylenol (Acetaminophen) (07/10/17 13:01) Drug Screen, Random Urine (07/10/17 14:07) Ondansetron Inj (Zofran Inj) (07/10/17 14:30) Alcohol Withdrawal Asmt-Ciwa ONCE (07/10/17 18:33) Flumazenil Inj (Romazicon Inj) (07/10/17 18:45) Lorazepam (Ativan) (07/10/17 18:45) Lorazepam Inj (Ativan Inj) (07/10/17 18:45) Lorazepam (Ativan) (07/10/17 18:45) Lorazepam Inj (Ativan Inj) (07/10/17 18:45) Lorazepam Inj (Ativan Inj) (07/10/17 18:45) Lorazepam Inj (Ativan Inj) (07/10/17 18:45) Labs Laboratory Tests Test 07/10/17 12:50 07/10/17 13:14 White Blood Count 14.9 TH/MM3 Red Blood Count 4.15 MIL/MM3 Hemoglobin 12.7 GM/DL Hematocrit 38.6 % Mean Corpuscular Volume 93.1 FL Mean Corpuscular Hemoglobin 30.6 PG Mean Corpuscular Hemoglobin Concent 32.8 % Red Cell Distribution Width 14.4 % Platelet Count 494 TH/MM3 Mean Platelet Volume 6.9 FL Neutrophils (%) (Auto) 85.0 % Lymphocytes (%) (Auto) 9.1 % Monocytes (%) (Auto) 5.3 % Eosinophils (%) (Auto) 0.1 % Basophils (%) (Auto) 0.5 % Neutrophils # (Auto) 12.7 TH/MM3 Lymphocytes # (Auto) 1.4 TH/MM3 Monocytes # (Auto) 0.8 TH/MM3 Eosinophils # (Auto) 0.0 TH/MM3 Basophils # (Auto) 0.1 TH/MM3 CBC Comment DIFF FINAL Differential Comment Prothrombin Time 10.2 SEC Prothromb Time International Ratio 0.9 RATIO Activated Partial Thromboplast Time 20.3 SEC Blood Urea Nitrogen 10 MG/DL Creatinine 0.85 MG/DL Random Glucose 150 MG/DL Total Protein 7.3 GM/DL Albumin 3.3 GM/DL Calcium Level 8.1 MG/DL Alkaline Phosphatase 77 U/L Aspartate Amino Transf (AST/SGOT) 32 U/L Alanine Aminotransferase (ALT/SGPT) 39 U/L Total Bilirubin 0.2 MG/DL Sodium Level 137 MEQ/L Potassium Level 4.0 MEQ/L Chloride Level 101 MEQ/L Carbon Dioxide Level 21.6 MEQ/L Anion Gap 14 MEQ/L Estimat Glomerular Filtration Rate 67 ML/MIN Salicylates Level LESS THAN 1.7 MG/DL Acetaminophen Level LESS THAN 2.0 MCG/ML Ethyl Alcohol Level 59 MG/DL Urine Opiates Screen NEG Urine Barbiturates Screen NEG Urine Amphetamines Screen NEG Urine Benzodiazepines Screen NEG Urine Cocaine Screen NEG Urine Cannabinoids Screen NEG MDM Medical Decision Making Medical Screen Exam Complete: Yes Emergency Medical Condition: Yes Medical Record Reviewed: Yes Differential Diagnosis Closed head injury, intoxication, polysubstance abuse, major depressive disorder , acute psychosis Narrative Course 67-year-old female with history of bipolar disorder and depression presents after becoming intoxicated and falling hitting her head. She told her neighbor that she was suicidal when she currently denies. She has been admitted several times in the past for overdose attempts and therefore psychiatric screening will be ordered. Plan is for basic lab work, CT brain. Mental health screening discussed with the patient. Psychiatric screen ordered. WBC 14.9, CT brain negative, CMP rate and glucose 150 calcium 8.1 otherwise unremarkable toxicology negative alcohol level 59. The patient is medically cleared for psychiatric disposition. Diagnosis Primary Impression: ALCOHOL ABUSE, UNCOMPLICATED Additional Impression: Depression Qualified Codes: F32.9 - Major depressive disorder, single episode, unspecified Scripts No Active Prescriptions or Reported Meds Oswaldo Fernandez Jul 10, 2017 13:09
[2017-07-10 13:35] LABS: AUTOMATED NEUTROPHIL # 12.7 TH/MM3 (1.8-7.7); BASOPHIL # 0.1 TH/MM3 (0-0.2); BASOPHIL % 0.5 % (0.0-2.0); EOSINOPHIL % 0.1 % (0.0-4.0); HEMATOCRIT 38.6 % (35.0-46.0); HEMO FLAGS DIFF FINAL; LYMPH % 9.1 % (9.0-44.0); LYMPHOCYTE # 1.4 TH/MM3 (1.0-4.8); MEAN CELL VOLUME 93.1 FL (80.0-100.0); MEAN CORPUSCULAR HEMOGLOBIN 30.6 PG (27.0-34.0); MEAN CORPUSCULAR HGB CONC 32.8 % (32.0-36.0); MONO % 5.3 % (0.0-8.0); PLATELET COUNT 494 TH/MM3 (150-450); RED BLOOD COUNT 4.15 MIL/MM3 (4.00-5.30); RED CELL DISTRIBUTION WIDTH 14.4 % (11.6-17.2); WHITE BLOOD COUNT 14.9 TH/MM3 (4.0-11.0)
[2017-07-10 13:44] LABS: PROTHROMBIN TIME - PATIENT 10.2 SEC (9.8-11.6)
[2017-07-10 13:45] LABS: APTT (PATIENT) 20.3 SEC (24.3-30.1); INTERNATIONAL NORMALIZED RATIO 0.9 RATIO
[2017-07-10 14:00] LABS: ALCOHOL 59 MG/DL (0-5); ANION GAP 14 MEQ/L (5-15); AST (GOT) 32 U/L (15-37); BICARBONATE 21.6 MEQ/L (21.0-32.0); BLOOD UREA NITROGEN 10 MG/DL (7-18); CHLORIDE 101 MEQ/L (98-107); GLOMERULAR FILTRATION RATE 67 ML/MIN (>89); SODIUM (NA) 137 MEQ/L (136-145)
[2017-07-10 14:03] LABS: ALKALINE PHOSPHATASE 77 U/L (45-117); ALT (GPT) 39 U/L (10-53); TOTAL BILIRUBIN ADULT 0.2 MG/DL (0.2-1.0)
[2017-07-10] MEDS ORDERED: ONDANSETRON HCL 4 MG/2 ML VIAL IVP ONE (14:30)
--- NOTE | 2017-07-10 14:39 | RADRPT ---
EXAM DATE/TIME: 07/10/2017 14:22 [place] COMPARISON: CT BRAIN W/O CONTRAST, March 14, 2016, 11:26. INDICATIONS : Altered mental status. Cephalgia. RADIATION DOSE: 31.04 CTDIvol (mGy) MEDICAL HISTORY : Hypertension. Diabetes mellitus type 2. SURGICAL HISTORY : Hysterectomy. ENCOUNTER: Initial ACUITY: 1 day PAIN SCALE: 0/10 LOCATION: cranial TECHNIQUE: Multiple contiguous axial images were obtained of the head. Using automated exposure control and adj ustment of the mA and/or kV according to patient size, radiation dose was kept as low as reasonably a chievable to obtain optimal diagnostic quality images. DICOM format image data is available electro nically for review and comparison. FINDINGS: CEREBRUM: The ventricles are normal for age. No evidence of midline shift, mass lesion, hemorrhage or acute in farction. No extra-axial fluid collections are seen. POSTERIOR FOSSA: The cerebellum and brainstem are intact. The 4th ventricle is midline. The cerebellopontine angle i s unremarkable. EXTRACRANIAL: The visualized portion of the orbits is intact. SKULL: The calvaria is intact. No evidence of skull fracture. CONCLUSION: Negative for acute process. Nicho Schwab MD FACR on July 10, 2017 at 14:37 Board Certified Radiologist. This report was verified electronically.
[2017-07-10 15:58] VITALS: BP 129/73; PULSE 96; RESP 17; TEMP 98.7; O2SAT 97
[2017-07-10 18:31] VITALS: BP 146/77; PULSE 100; RESP 20; O2SAT 100
[2017-07-10] MEDS ORDERED: FLUMAZENIL 0.5 MG/5 ML VIAL IV PUSH PRN (18:45)
[2017-07-10] MEDS ORDERED: LORazepam 2 MG TAB PO PRN (18:45)
[2017-07-10] MEDS ORDERED: LORazepam 2 MG/ML VIAL IV PUSH PRN ×4 (18:45)
[2017-07-10] MEDS ORDERED: ACETAMINOPHEN 325 MG TAB PO ONE (20:15)
[2017-07-10] MEDS: LORazepam 1 MG TAB PO PRN (21:07)
[2017-07-11 06:08] VITALS: BP 153/77; PULSE 75; RESP 18; O2SAT 96
[2017-07-11] MEDS: LORazepam 1 MG TAB PO PRN (06:36)
--- NOTE | 2017-07-11 08:34 | PD ---
Physical Exam Time Seen by Provider: 08:32 ANKIT Saenz has evaluated the patient and the patient will be discharged. Data Data Last Documented VS Vital Signs Date Time Temp Pulse Resp B/P (MAP) Pulse Ox O2 Delivery O2 Flow Rate FiO2 07/11/17 06:08 75 18 153/77 (102) 96 07/10/17 18:31 Room Air 07/10/17 15:58 98.7 Orders Orders Complete Blood Count With Diff (07/10/17 12:40) Comprehensive Metabolic Panel (07/10/17 12:40) Psych Screen (07/10/17 12:40) Alcohol (Ethanol) (07/10/17 12:40) Prothrombin Time / Inr (Pt) (07/10/17 12:49) Act Partial Throm Time (Ptt) (07/10/17 12:49) Ct Brain W/O Iv Contrast(Rout) (07/10/17 ) Salicylates (Aspirin) (07/10/17 13:01) Tylenol (Acetaminophen) (07/10/17 13:01) Drug Screen, Random Urine (07/10/17 14:07) Ondansetron Inj (Zofran Inj) (07/10/17 14:30) Alcohol Withdrawal Asmt-Ciwa ONCE (07/10/17 18:33) Flumazenil Inj (Romazicon Inj) (07/10/17 18:45) Lorazepam (Ativan) (07/10/17 18:45) Lorazepam Inj (Ativan Inj) (07/10/17 18:45) Lorazepam (Ativan) (07/10/17 18:45) Lorazepam Inj (Ativan Inj) (07/10/17 18:45) Lorazepam Inj (Ativan Inj) (07/10/17 18:45) Lorazepam Inj (Ativan Inj) (07/10/17 18:45) Acetaminophen (Tylenol) (07/10/17 20:15) Diet Regular Basic (07/11/17 Breakfast) Labs Laboratory Tests Test 07/10/17 12:50 07/10/17 13:14 White Blood Count 14.9 TH/MM3 Red Blood Count 4.15 MIL/MM3 Hemoglobin 12.7 GM/DL Hematocrit 38.6 % Mean Corpuscular Volume 93.1 FL Mean Corpuscular Hemoglobin 30.6 PG Mean Corpuscular Hemoglobin Concent 32.8 % Red Cell Distribution Width 14.4 % Platelet Count 494 TH/MM3 Mean Platelet Volume 6.9 FL Neutrophils (%) (Auto) 85.0 % Lymphocytes (%) (Auto) 9.1 % Monocytes (%) (Auto) 5.3 % Eosinophils (%) (Auto) 0.1 % Basophils (%) (Auto) 0.5 % Neutrophils # (Auto) 12.7 TH/MM3 Lymphocytes # (Auto) 1.4 TH/MM3 Monocytes # (Auto) 0.8 TH/MM3 Eosinophils # (Auto) 0.0 TH/MM3 Basophils # (Auto) 0.1 TH/MM3 CBC Comment DIFF FINAL Differential Comment Prothrombin Time 10.2 SEC Prothromb Time International Ratio 0.9 RATIO Activated Partial Thromboplast Time 20.3 SEC Blood Urea Nitrogen 10 MG/DL Creatinine 0.85 MG/DL Random Glucose 150 MG/DL Total Protein 7.3 GM/DL Albumin 3.3 GM/DL Calcium Level 8.1 MG/DL Alkaline Phosphatase 77 U/L Aspartate Amino Transf (AST/SGOT) 32 U/L Alanine Aminotransferase (ALT/SGPT) 39 U/L Total Bilirubin 0.2 MG/DL Sodium Level 137 MEQ/L Potassium Level 4.0 MEQ/L Chloride Level 101 MEQ/L Carbon Dioxide Level 21.6 MEQ/L Anion Gap 14 MEQ/L Estimat Glomerular Filtration Rate 67 ML/MIN Salicylates Level LESS THAN 1.7 MG/DL Acetaminophen Level LESS THAN 2.0 MCG/ML Ethyl Alcohol Level 59 MG/DL Urine Opiates Screen NEG Urine Barbiturates Screen NEG Urine Amphetamines Screen NEG Urine Benzodiazepines Screen NEG Urine Cocaine Screen NEG Urine Cannabinoids Screen NEG MDM Supervised Visit with MARYJO: No Narrative Course ANKIT Phelan has evaluated the patient, lifted the Lees act and the patient will be discharged home. Patient contracts safety. Denies suicidal or homicidal ideations. Patient will be provided community resource packet to [facility]/ [facility] for follow-up. Patient will also be provided information for AA as she has expressed that she wants to stop drinking. Has friends and family for support. Patient is medically cleared for discharge. Diagnosis Primary Impression: ALCOHOL ABUSE, UNCOMPLICATED Additional Impression: Depression Qualified Codes: F32.9 - Major depressive disorder, single episode, unspecified Referrals: [facility] (Out patient) [facility] Primary Care Physician Psychiatrist Violeta PDARON Behavioral Patient Instructions: Abuse of Alcohol (ED), Alcohol Dependence (ED), Alcohol Intoxication (ED), Depression (ED), General Instructions Additional Instruction: Contract safety to your self and others Stop drinking alcohol Follow-up with AA for support to stop drinking Follow-up with psychiatry Follow-up with primary care provider Follow-up with Saeed Rojo/NEREIDA Return to the emergency department immediately with worsening of symptoms Med/Other Pt SpecificInfo: No Meds Exist/No RX given Scripts No Active Prescriptions or Reported Meds Disposition: 01 DISCHARGE HOME Condition: Stable [place] Bravo Jul 11, 2017 08:34
[2017-07-11 08:46] VITALS: BP 153/77; TEMP 98.3
== END 2017-07-11 08:49 | disposition home or self-care (01) ==
LOC: NEPJ 11:33
DX: F10.10 Alcohol abuse, uncomplicated (principal); F32.9 Major depressive disorder, single episode, unspecified; E11.9 Type 2 diabetes mellitus without complications; I10 Essential (primary) hypertension; R51 Headache
CPT/HCPCS: 70450; 80053; 80307; 85025; 85610; 85730; 99284

== ENCOUNTER 2017-07-15 10:26 | Inpatient (IN) | payer OTHER, MEDICARE ==
[~2017-07-15] VITALS: Ht 162.6 cm; Wt 72.0 kg
[2017-07-15] VITALS (7 sets, daily range): BP systolic 141–164; BP diastolic 70–97; PULSE 84–108; RESP 15–22; TEMP 98.1–98.6; O2SAT 94–98
[2017-07-15] MEDS ORDERED: SODIUM CHLOR 0.9% 1000 ML INJ 1,000 ML IV ONE (10:56)
[2017-07-15] MEDS ORDERED: SODIUM CHLORIDE 0.9% FLUSH 10 ML FLUSH IVF PRN (11:00)
--- NOTE | 2017-07-15 11:20 | RADRPT ---
EXAM DATE/TIME: 07/15/2017 11:13 [place] COMPARISON: CHEST SINGLE AP, June 08, 2016, 11:38. INDICATIONS : Shortness of breath. MEDICAL HISTORY : None. SURGICAL HISTORY : None. ENCOUNTER: Initial ACUITY: 1 day PAIN SCORE: 0/10 LOCATION: Bilateral chest FINDINGS: A single view of the chest demonstrates the lungs to be symmetrically aerated without evidence of mas s, infiltrate or effusion. The cardiomediastinal contours are unremarkable. Osseous structures are intact. CONCLUSION: No acute disease. No significant change has occurred. Rio Vick MD on July 15, 2017 at 11:18 Board Certified Radiologist. This report was verified electronically.
[2017-07-15 11:27] LABS: AUTOMATED NEUTROPHIL # 15.9 TH/MM3 (1.8-7.7); BASOPHIL # 0.2 TH/MM3 (0-0.2); BASOPHIL % 1.2 % (0.0-2.0); HEMO FLAGS DIFF FINAL; LYMPHOCYTE # 2.1 TH/MM3 (1.0-4.8); MEAN CELL VOLUME 91.5 FL (80.0-100.0); MONO % 4.4 % (0.0-8.0); NEUT % 83.4 % (16.0-70.0); PLATELET COUNT 593 TH/MM3 (150-450); RED BLOOD COUNT 4.37 MIL/MM3 (4.00-5.30); RED CELL DISTRIBUTION WIDTH 14.3 % (11.6-17.2); WHITE BLOOD COUNT 19.1 TH/MM3 (4.0-11.0)
[2017-07-15 11:41] LABS: ALT (GPT) 29 U/L (10-53); ANION GAP 14 MEQ/L (5-15); AST (GOT) 23 U/L (15-37); BICARBONATE 20.8 MEQ/L (21.0-32.0); BLOOD UREA NITROGEN 15 MG/DL (7-18); CHLORIDE 99 MEQ/L (98-107); GLOMERULAR FILTRATION RATE 31 ML/MIN (>89); POTASSIUM 3.6 MEQ/L (3.5-5.1); SODIUM (NA) 134 MEQ/L (136-145)
[2017-07-15 11:42] LABS: ALCOHOL LESS THAN 3 MG/DL (0-5); ALKALINE PHOSPHATASE 81 U/L (45-117); TOTAL BILIRUBIN ADULT 0.7 MG/DL (0.2-1.0)
[2017-07-15 11:44] LABS: ACETAMINOPHEN LESS THAN 2.0 MCG/ML (10.0-30.0)
--- NOTE | 2017-07-15 11:57 | PD ---
HPI Chief Complaint: OD/ Ingestion Time Seen by Provider: 10:56 Travel History International Travel<30 days: No Contact w/Intl Traveler<30days: No Traveled to known affect area: No History of Present Illness HPI This is a 67-year-old female with history of alcohol abuse, diabetes mellitus, bipolar disorder, who presents here today after ingesting rubbing alcohol, Benadryl, Tylenol tablets. The patient states that she's been taking 2 g of Tylenol daily for several days. She reports taking 450 mg Benadryl tablets this morning at 8 AM. She also reports drinking nearly a bottle of rubbing alcohol. The patient states that she was trying to get "high". Patient states she stopped drinking a couple days ago and then had the urge to drink again. She usually drinking regular alcohol however did not have that near her at the time that she had craving. She denies any suicidal or homicidal ideation. She has no other complaints the time of my examination. PFSH Past Medical History Hx Anticoagulant Therapy: No Arthritis: Yes Asthma: No Autoimmune Disease: No Blood Disorders: No Bipolar Disorder: Yes Anxiety: No Depression: No Heart Rhythm Problems: No Cancer: No Cardiovascular Problems: No High Cholesterol: Yes Chemotherapy: No Chest Pain: No Congestive Heart Failure: No COPD: No Cerebrovascular Accident: No Diabetes: Yes Patient Takes Glucophage: No Diminished Hearing: No Endocrine: Yes GERD: No Genitourinary: No Hepatitis: No Hiatal Hernia: No Hypertension: Yes Immune Disorder: No Implanted Vascular Access Dvce: Yes Kidney Stones: No Musculoskeletal: No Neurologic: No Psychiatric: Yes (Major depressive disorder, recurrent) Reproductive: No Respiratory: No Migraines: No Radiation Therapy: No Renal Failure: No Seizures: No Sickle Cell Disease: No Sleep Apnea: No Thyroid Disease: No Triglycerides - High: Yes Ulcer: No Tetanus Vaccination: Unknown Influenza Vaccination: Yes PNEUMOCCOCAL Vaccine (Year): 2009 ?: Not Menopausal: Yes Past Surgical History Abdominal Surgery: No AICD: No Arteriovenous Shunt: No Cardiac Surgery: No Ear Surgery: No Endocrine Surgery: No Eye Surgery: No Genitourinary Surgery: No Gynecologic Surgery: No Hysterectomy: Yes Insulin Pump: No Joint Replacement: Yes (LEFT HIP AND KNEE) Oral Surgery: No Pacemaker: No Thoracic Surgery: No Social History Alcohol Use: Yes (OCC, HX ETOH ABUSE) Tobacco Use: No Substance Use: No (alcohol abuse) Allergies-Medications (Allergen,Severity, Reaction): Coded Allergies: codeine (Unverified Allergy, Severe, Hives, 06/14/17) penicillin G (Unverified Allergy, Unknown, 06/14/17) Reported Meds & Prescriptions Reported Meds & Active Scripts Active No Active Prescriptions or Reported Medications Review of Systems Except as stated in HPI: all other systems reviewed are Neg General / Constitutional: No: Fever, Chills HENT: No: Headaches, Lightheadedness, Neck Pain Cardiovascular: No: Chest Pain or Discomfort, Palpitations Respiratory: No: Cough, Shortness of Breath Gastrointestinal: No: Nausea, Vomiting, Abdominal Pain Genitourinary: No: Frequency, Dysuria Musculoskeletal: No: Weakness, Pain Neurologic: No: Weakness, Dizziness, Headache, Change in Mentation, Slurred Speech Psychiatric: Positive: Mood Disorder (bipolar disorder), Substance Abuse ( alcohol abuse), No: Suicidal Ideations, Homicidal Ideation Physical Exam Narrative GENERAL: Well-developed well-nourished female in no acute respiratory distress. SKIN: Focused skin assessment warm/dry. HEAD: Atraumatic. Normocephalic. EYES: Pupils equal and round. No scleral icterus. No injection or drainage. ENT: No nasal bleeding or discharge. Mucous membranes pink and moist. NECK: Trachea midline. No JVD. Supple CARDIOVASCULAR: Regular rate and rhythm. No murmur appreciated. RESPIRATORY: No accessory muscle use. Clear to auscultation. Breath sounds equal bilaterally. GASTROINTESTINAL: Abdomen soft, non-tender, nondistended. Hepatic and splenic margins not palpable. MUSCULOSKELETAL: No obvious deformities. No clubbing. No cyanosis. No edema. NEUROLOGICAL: Awake and alert. No obvious cranial nerve deficits. Motor grossly within normal limits. Normal speech. PSYCHIATRIC: Poor insight and poor judgment. Data Data Last Documented VS Vital Signs Date Time Temp Pulse Resp B/P (MAP) Pulse Ox O2 Delivery O2 Flow Rate FiO2 07/15/17 12:00 94 15 143/84 (103) 95 Room Air 07/15/17 10:35 98.4 Orders Orders Complete Blood Count With Diff (07/15/17 10:56) Comprehensive Metabolic Panel (07/15/17 10:56) Osmolality, Urine (07/15/17 10:56) Urinalysis - C+S If Indicated (07/15/17 10:56) Chest, Single Ap (07/15/17 10:56) Iv Access Insert/Monitor (07/15/17 10:56) Ecg Monitoring (07/15/17 10:56) Oximetry (07/15/17 10:56) Sodium Chloride 0.9% Flush (Ns Flush) (07/15/17 11:00) Sodium Chlor 0.9% 1000 Ml Inj (Ns 1000 M (07/15/17 10:56) Call Poison Control (07/15/17 10:56) Drug Screen, Random Urine (07/15/17 10:56) Alcohol (Ethanol) (07/15/17 10:56) Salicylates (Aspirin) (07/15/17 10:56) Tylenol (Acetaminophen) (07/15/17 10:56) Electrocardiogram (07/15/17 13:14) Ckmb (Isoenzyme) Profile (07/15/17 13:17) Troponin I (07/15/17 13:17) Admit Order (Ed Use Only) (07/15/17 13:34) Labs Laboratory Tests Test 07/15/17 10:40 07/15/17 12:15 White Blood Count 19.1 TH/MM3 Red Blood Count 4.37 MIL/MM3 Hemoglobin 14.0 GM/DL Hematocrit 40.0 % Mean Corpuscular Volume 91.5 FL Mean Corpuscular Hemoglobin 32.0 PG Mean Corpuscular Hemoglobin Concent 35.0 % Red Cell Distribution Width 14.3 % Platelet Count 593 TH/MM3 Mean Platelet Volume 6.7 FL Neutrophils (%) (Auto) 83.4 % Lymphocytes (%) (Auto) 11.0 % Monocytes (%) (Auto) 4.4 % Eosinophils (%) (Auto) 0.0 % Basophils (%) (Auto) 1.2 % Neutrophils # (Auto) 15.9 TH/MM3 Lymphocytes # (Auto) 2.1 TH/MM3 Monocytes # (Auto) 0.8 TH/MM3 Eosinophils # (Auto) 0.0 TH/MM3 Basophils # (Auto) 0.2 TH/MM3 CBC Comment DIFF FINAL Differential Comment Blood Urea Nitrogen 15 MG/DL Creatinine 1.65 MG/DL Random Glucose 175 MG/DL Total Protein 7.6 GM/DL Albumin 3.5 GM/DL Calcium Level 8.8 MG/DL Alkaline Phosphatase 81 U/L Aspartate Amino Transf (AST/SGOT) 23 U/L Alanine Aminotransferase (ALT/SGPT) 29 U/L Total Bilirubin 0.7 MG/DL Sodium Level 134 MEQ/L Potassium Level 3.6 MEQ/L Chloride Level 99 MEQ/L Carbon Dioxide Level 20.8 MEQ/L Anion Gap 14 MEQ/L Estimat Glomerular Filtration Rate 31 ML/MIN Salicylates Level LESS THAN 1.7 MG/DL Acetaminophen Level LESS THAN 2.0 MCG/ML Ethyl Alcohol Level LESS THAN 3 MG/DL Urine Color YELLOW Urine Turbidity CLEAR Urine pH 5.5 Urine Specific [place] 1.014 Urine Protein TRACE mg/dL Urine Glucose (UA) NEG mg/dL Urine Ketones 40 mg/dL Urine Occult Blood TRACE Urine Nitrite NEG Urine Bilirubin NEG Urine Urobilinogen LESS THAN 2.0 MG/DL Urine Leukocyte Esterase NEG Urine RBC 1 /hpf Urine WBC 1 /hpf Urine Mucus FEW /lpf Microscopic Urinalysis Comment CATH-CULT NOT IND Urine Osmolality 493 MOSM/KG Urine Opiates Screen NEG Urine Barbiturates Screen NEG Urine Amphetamines Screen NEG Urine Benzodiazepines Screen NEG Urine Cocaine Screen NEG Urine Cannabinoids Screen NEG MDM Medical Decision Making Medical Screen Exam Complete: Yes Emergency Medical Condition: Yes Differential Diagnosis Methanol overdose versus Tylenol overdose versus Benadryl overdose versus acute manic episode Narrative Course 6-7 year old female presents after ingesting methanol, Benadryl, Tylenol. The patient states she was trying to get "high". Patient has a history of alcohol abuse. Patient also has history of bipolar disorder and diabetes mellitus. She denies suicidal ideation. She states she was trying to get high. The patient was seen here 5 days ago and at that time had a normal creatinine. The patient's creatinine today is 1.67 which is double from what it was 5 days ago. Patient's white count is also 19.1 her blood sugar is 176. Urinalysis shows ketones with a few red blood cells. The patient's urine osmolality is within normal range. The patient's bicarbonate was 20.8. Given her acute renal failure, patient will be admitted to the hospital as a full admission. She'll need a nephrology consult. She is currently being hydrated. The case was discussed with Dr. Dhaval Angel, [place] [facility]ist, who is agreed for the admission. Diagnosis Primary Impression: Acute kidney injury Additional Impressions: Leukocytosis, unspecified methanol ingestion QT prolongation Diabetes mellitus Acidosis Bipolar 1 disorder Admitting Information Admitting Physician Requests: Admit Scripts No Active Prescriptions or Reported Meds Gerson Wood MD Jul 15, 2017 11:57
[2017-07-15 12:46] LABS: BLOOD, URINE TRACE (NEG); COMMENT (UR) CATH-CULT NOT IND; CULTURE IF INDICATED CATH CULTURE NOT IND; GLUCOSE,URINE NEG (NEG); KETONE, URINE 40 mg/dL (NEG); MUCUS URINE FEW /lpf (OCC); NITRITE,URINE NEG (NEG); PH, URINE 5.5 (5.0-8.5); URINE COLOR YELLOW (YELLW/STRAW)
[2017-07-15 14:12] LABS: BLOOD GAS BASE EXCESS -0.1 mmol/L (-2-2); BLOOD GAS CARBOXYHEMOGLOBIN 2.2 % (0-4); BLOOD GAS HCO3 23 mmol/L (22-26); BLOOD GAS METHEMOGLOBIN 0.6 % (0-2); BLOOD GAS O2 HGB SATURATION 94 % (90-100); BLOOD GAS PCO2 30 mmHg (38-42); BLOOD GAS PO2 78 mmHG (61-120); BLOOD GAS TOTAL HGB 12.8 G/DL (12.0-16.0); CRITICAL VALUE NO; DRAW SITE BR; NUMBER OF ARTERIAL PUNCTURES 2; OXYGEN DEVICE RA; STAT YES; TEMP CORR TO 98.6; ULNAR PULSE PRESENT
[2017-07-15] MEDS ORDERED: ONDANSETRON HCL 4 MG/2 ML VIAL IVP PRN (14:15)
[2017-07-15] MEDS ORDERED: LACTULOSE SYRUP 20 GM/30 ML CUP PO PRN (14:15)
[2017-07-15] MEDS ORDERED: DEXTROSE 50% IN WATER 50 ML VIAL(D50) IV PUSH PRN (14:15)
[2017-07-15] MEDS ORDERED: SENNOSIDES 8.6 MG TAB PO PRN (14:15)
[2017-07-15] MEDS ORDERED: GLUCAGON 1 MG/ML VIAL OTHER PRN (14:15)
[2017-07-15] MEDS ORDERED: LORazepam 2 MG/ML VIAL IV PUSH PRN ×3 (14:15)
[2017-07-15] MEDS ORDERED: MAGNESIUM HYDROXIDE SUSP 30 ML CUP PO PRN (14:15)
[2017-07-15] MEDS ORDERED: LORazepam 2 MG TAB PO PRN (14:15)
[2017-07-15] MEDS ORDERED: BISACODYL 10 MG SUPP RECTAL PRN (14:15)
[2017-07-15] MEDS ORDERED: NALOXONE HCL 0.4 MG/ML AMP IV PUSH PRN (14:15)
[2017-07-15] MEDS ORDERED: FLUMAZENIL 0.5 MG/5 ML VIAL IV PUSH PRN (14:15)
--- NOTE | 2017-07-15 14:29 | HHI.HP ---
HPI Service [facility] Hospitalists Primary Care Physician Unknown Admission Diagnosis acute kidney injury, methanol ingestion, tylenol abuse, diabetes bill Diagnoses: Chief Complaint: "Drinking too much" Travel History International Travel<30 Days: No Contact w/Intl Traveler <30 Da: No Traveled to Known Affected Are: No Sepsis Criteria SIRS Criteria (2 or more): Heart rate over 90, RR > 20 or PaCO2 < 32, WBC > 65694, < 4000 or > 10% bands Sepsis Criteria (SIRS+source): Infect source susp/known Severe Sepsis (+one): Acute Oliguria/Renal Failure Criteria Outcome: Meets severe sepsis criteria History of Present Illness Written by Soha Patel, acting as scribe for Dr. Angel on 07/15/17 at 14:03. This is a 67-year-old female with past medical history significant for alcohol abuse, diabetes, depression and bipolar disorder who presents to [facility] ED after ingesting nearly a bottle of rubbing alcohol and taking 5-6 Benadryl and Tylenol this morning. Patient denies any attempt to harm herself and states the ingestion was "to get high". Patient reports that she stopped drinking several days ago but then had the urge to drink again. She normally drinks regular alcohol but since she did not have any on hand she opted drink rubbing alcohol instead. Patient admits to a long history of alcohol abuse. She states she's tried AA in the past but didn't like it. Per review of the medical record, she was admitted in June of last year after ingesting Listerine. Patient denies any complaints at present. She denies any fever, chills, headache, vision changes, nausea, vomiting, chest pain, shortness of breath, abdominal pain, urinary complaints, diarrhea or constipation. Review of Systems Except as stated in HPI: all other systems reviewed are Neg Past Family Social History Past Medical History History of alcohol abuse with multiple hospitalizations Diabetes mellitus Major depression Anxiety Dyslipidemia Past Surgical History Left total hip replacement Hysterectomy Reported Medications No Active Prescriptions or Reported Medications Allergies: Coded Allergies: codeine (Unverified Allergy, Severe, Hives, 06/14/17) penicillin G (Unverified Allergy, Unknown, 06/14/17) Active Ordered Medications Current Medications Medications (Trade) Dose Ordered Sig/Gia Route Start Time Stop Time Status Last Admin (NS Flush) 2 ml UNSCH PRN IVF 07/15/17 11:00 07/15/17 11:07 Family History Patient denies any significant family medical history. Social History Patient admits to a long history of alcohol abuse. She denies any tobacco use or illicit drug use. Physical Exam Vital Signs Vital Signs Date Time Temp Pulse Resp B/P (MAP) Pulse Ox O2 Delivery O2 Flow Rate FiO2 07/15/17 12:00 94 15 143/84 (103) 95 Room Air 07/15/17 11:15 96 22 153/81 (105) 96 Room Air 07/15/17 10:35 98.4 108 20 164/97 (119) 94 Room Air 07/15/17 10:35 98.4 108 15 164/97 (119) 94 07/15/17 10:30 94 Room Air Physical Exam GENERAL: This is a well-nourished, well-developed patient, in no apparent distress. Awake and alert. Appears comfortable at present. SKIN: No rashes, ecchymoses or lesions. Cool and dry. HEAD: Atraumatic. Normocephalic. No temporal or scalp tenderness. EYES: Pupils equal round and reactive. Extraocular motions intact. No scleral icterus. No injection or drainage. ENT: Nose without bleeding, purulent drainage. Throat without erythema, tonsillar hypertrophy or exudate. Uvula midline. Airway patent. NECK: Trachea midline. No lymphadenopathy. Supple, nontender, no meningeal signs. CARDIOVASCULAR: Regular rate and rhythm without murmurs, gallops, or rubs. RESPIRATORY: Clear to auscultation. Breath sounds equal bilaterally. No wheezes , rales, or rhonchi. GASTROINTESTINAL: Abdomen soft, non-tender, nondistended. No hepato-splenomegaly , or palpable masses. No guarding. MUSCULOSKELETAL: Extremities without clubbing, cyanosis, or edema. No joint tenderness, effusion, or edema noted. No calf tenderness. NEUROLOGICAL: Awake and alert. Able to extremity spontaneously. Nonfocal. Normal speech. Laboratory Laboratory Tests Test 07/15/17 10:40 07/15/17 12:15 White Blood Count 19.1 Red Blood Count 4.37 Hemoglobin 14.0 Hematocrit 40.0 Mean Corpuscular Volume 91.5 Mean Corpuscular Hemoglobin 32.0 Mean Corpuscular Hemoglobin Concent 35.0 Red Cell Distribution Width 14.3 Platelet Count 593 Mean Platelet Volume 6.7 Neutrophils (%) (Auto) 83.4 Lymphocytes (%) (Auto) 11.0 Monocytes (%) (Auto) 4.4 Eosinophils (%) (Auto) 0.0 Basophils (%) (Auto) 1.2 Neutrophils # (Auto) 15.9 Lymphocytes # (Auto) 2.1 Monocytes # (Auto) 0.8 Eosinophils # (Auto) 0.0 Basophils # (Auto) 0.2 CBC Comment DIFF FINAL Differential Comment Blood Urea Nitrogen 15 Creatinine 1.65 Random Glucose 175 Total Protein 7.6 Albumin 3.5 Calcium Level 8.8 Alkaline Phosphatase 81 Aspartate Amino Transf (AST/SGOT) 23 Alanine Aminotransferase (ALT/SGPT) 29 Total Bilirubin 0.7 Sodium Level 134 Potassium Level 3.6 Chloride Level 99 Carbon Dioxide Level 20.8 Anion Gap 14 Estimat Glomerular Filtration Rate 31 Salicylates Level LESS THAN 1.7 Acetaminophen Level LESS THAN 2.0 Ethyl Alcohol Level LESS THAN 3 Urine Color YELLOW Urine Turbidity CLEAR Urine pH 5.5 Urine Specific [place] 1.014 Urine Protein TRACE Urine Glucose (UA) NEG Urine Ketones 40 Urine Occult Blood TRACE Urine Nitrite NEG Urine Bilirubin NEG Urine Urobilinogen LESS THAN 2.0 Urine Leukocyte Esterase NEG Urine RBC 1 Urine WBC 1 Urine Mucus FEW Microscopic Urinalysis Comment CATH-CULT NOT IND Urine Osmolality 493 Urine Opiates Screen NEG Urine Barbiturates Screen NEG Urine Amphetamines Screen NEG Urine Benzodiazepines Screen NEG Urine Cocaine Screen NEG Urine Cannabinoids Screen NEG Result Diagram: 07/15/17 1040 07/15/17 1040 Imaging Last Impressions Chest X-Ray 07/15/17 1056 Signed Impressions: Service Date/Time: Saturday, July 15, 2017 11:13 - CONCLUSION: No acute disease. No significant change has occurred. MD Fawn Troy VTE Risk Assessment [place]ff[place] VTE Risk Assessment: Mod/High Risk (score >= 2) Caprini Risk Assessment Model Point Value = 1 Point Value = 2 Point Value = 3 Point Value = 5 Age 41-60 Minor surgery BMI > 25 kg/m2 Swollen legs Varicose veins or History of unexplained or recurrent spontaneous Oral contraceptives or hormone replacement Sepsis (< 1 month) Serious lung disease, including pneumonia (< 1 month) Abnormal pulmonary function Acute myocardial infarction Congestive heart failure (< 1 month) History of inflammatory bowel disease Medical patient at bed rest Age 61-74 Arthroscopic surgery Major open surgery (> 45 min) Laparoscopic surgery (> 45 min) Malignancy Confined to bed (> 72 hours) Immobilizing plaster cast Central venous access Age >= 75 History of VTE Family history of VTE Factor V Leiden Prothrombin [id number] Lupus anticoagulant Anticardiolipin antibodies Elevated serum homocysteine Heparin-induced thrombocytopenia Other congenital or acquired thrombophilia Stroke (< 1 month) Elective arthroplasty Hip, pelvis, or leg fracture Acute spinal cord injury (< 1 month) Prophylaxis Regimen Total Risk Factor Score Risk Level Prophylaxis Regimen 0-1 Low Early ambulation 2 Moderate Order ONE of the following: *Sequential Compression Device (SCD) *Heparin 5000 units SQ BID 3-4 Higher Order ONE of the following medications: *Heparin 5000 units SQ TID *Enoxaparin/Lovenox 40 mg SQ daily (WT < 150 kg, CrCl > 30 mL/min) *Enoxaparin/Lovenox 30 mg SQ daily (WT < 150 kg, CrCl > 10-29 mL/min) *Enoxaparin/Lovenox 30 mg SQ BID (WT < 150 kg, CrCl > 30 mL/min) AND/OR *Sequential Compression Device (SCD) 5 or more Highest Order ONE of the following medications: *Heparin 5000 units SQ TID (Preferred with Epidurals) *Enoxaparin/Lovenox 40 mg SQ daily (WT < 150 kg, CrCl > 30 mL/min) *Enoxaparin/Lovenox 30 mg SQ daily (WT < 150 kg, CrCl > 10-29 mL/min) *Enoxaparin/Lovenox 30 mg SQ BID (WT < 150 kg, CrCl > 30 mL/min) AND *Sequential Compression Device (SCD) Assessment and Plan Assessment and Plan 67-year-old female with past medical history significant for alcohol abuse, diabetes, depression and bipolar disorder who presents to [facility] ED after ingesting nearly a bottle of rubbing alcohol and taking 5-6 Benadryl and Tylenol this morning in an effort to "get high". Severe sepsis with white count 19.1, heart rate 108, RR 22 with acute kidney failure secondary to ingestion of rubbing alcohol, Benadryl and Tylenol - Urine drug screen unremarkable with salicylates level less than 1.7, acetaminophen level less than 2.0 and alcohol level less than 3 - ABG personally reviewed, pH 7.50 pCO2 30, pO2 78 - Bicarbonate 20.8 , Anion gap 14 - Continuous cardiac monitoring - IVF - obtain lactic acid level and follow sepsis protocol if elevated - Monitor white count Acute kidney failure - Secondary to ingestion of rubbing alcohol, Benadryl and Tylenol as well as suspected dehydration - IV fluids - Will consider nephrology consulted kidney function worsens - Monitor kidney function closely - Avoid nephrotoxic agents - encourage po intake DM - Patient reports taking Glucophage at home. Will not resume at this time. - Diabetic diet - Accu-Cheks - ISS Thrombocytosis - Suspect due to alcohol use/withdrawal - Obtain B12 level History of alcohol abuse - LFTs WNL - CIWA protocol - monitor for signs of withdrawal - Thiamine, folic acid and MVI daily DVT prophylaxis - Heparin subcutaneous This note was transcribed by luci Patel. I, Dr. Reginald Angel personally performed the history, physical exam, and medical decision making; and confirmed the accuracy of the information in the transcribed note. Authenticated by Dr. Reginald Angel on 07/15/17 at 15:08. Discussed Condition With Patient, ED physician Physician Certification 2 Midnight Certification Type: Admission for Inpatient Services Order for Inpatient Services The services are ordered in accordance with Medicare regulations or non- Medicare payer requirements, as applicable. In the case of services not specified as inpatient-only, they are appropriately provided as inpatient services in accordance with the 2-midnight benchmark. Estimated LOS (days): 3 3 days is the estimated time the patient will need to remain in the hospital, assuming treatment plan goals are met and no additional complications. Post-Hospital Plan: Not yet determined Soha Patel Jul 15, 2017 14:29 Reginald Angel MD Jul 15, 2017 15:08
[2017-07-15 16:02] LABS: CREATINE KINASE 135 U/L (26-192)
[2017-07-15 16:14] LABS: CKMB 4.2 NG/ML (0.5-3.6)
--- NOTE | 2017-07-15 16:23 | EKG ---
Date Performed: 07/15/2017 Time Performed: 13:17:50 PTAGE: 67 years EKG: Sinus rhythm MARKED RIGHT AXIS DEVIATION RIGHT BUNDLE BRANCH BLOCK POSSIBLE ANTERIOR MYOCARDIAL INFARCTION INFERI OR MYOCARDIAL INFARCTION ABNORMAL ECG INTERPRETATION BASED ON A DEFAULT AGE OF 40 YEARS No significan t change from prior electrocardiogram. PREVIOUS TRACING : 07/15/2017 10.49 DOCTOR: Austin Vásquez Interpretating Date/Time 07/15/2017 16:21:03
--- NOTE | 2017-07-15 16:24 | EKG ---
Date Performed: 07/15/2017 Time Performed: 10:49:33 PTAGE: 67 years EKG: SINUS TACHYCARDIA MARKED RIGHT AXIS DEVIATION RIGHT BUNDLE BRANCH BLOCK INFERIOR MYOCARDIAL INFARCTION ANTEROLATERAL MYOCARDIAL INFARCTION ABNORMAL ECG No significant change from prior electro cardiogram. PREVIOUS TRACING : 06/14/2017 16.22 DOCTOR: Austin Vásquez Interpretating Date/Time 07/15/2017 16:22:41
[2017-07-15] MEDS: INSULIN ASPART SUPPLEMENTAL SCALE SQ SCH ×2 (17:00→21:47)
[2017-07-15] MEDS: HEPARIN SODIUM - SQ 10,000 UNITS/ML VIAL SQ SCH (17:57)
[2017-07-15] MEDS: NS + KCL 20 MEQ INJ 1,000 ML IV SCH (22:15)
[2017-07-16] VITALS (7 sets, daily range): BP systolic 104–169; BP diastolic 71–88; PULSE 74–81; RESP 15–17; TEMP 96.5–97.5; O2SAT 94–100
[2017-07-16] MEDS: HEPARIN SODIUM - SQ 10,000 UNITS/ML VIAL SQ SCH ×2 (05:49→15:13)
[2017-07-16] MEDS: NS + KCL 20 MEQ INJ 1,000 ML IV SCH ×3 (05:50→11:09)
[2017-07-16] MEDS: INSULIN ASPART SUPPLEMENTAL SCALE SQ SCH ×4 (06:58→20:21)
[2017-07-16] MEDS: THIAMINE HCL 100 MG TAB PO SCH (09:05)
[2017-07-16] MEDS: MULTIVITAMIN TAB PO SCH (09:05)
[2017-07-16] MEDS: FOLIC ACID 1 MG TAB PO SCH (09:05)
[2017-07-16] MEDS ORDERED: INFLUENZA VIRUS VACCINE (QUADRIVALENT) 0.5 ML SYR IM ONE (10:00)
[2017-07-16 10:08] LABS: POTASSIUM 3.1 MEQ/L (3.5-5.1)
[2017-07-16 10:26] LABS: INDIRECT BILIRUBIN 0.4 MG/DL (0.0-0.8); TOTAL BILIRUBIN ADULT 0.5 MG/DL (0.2-1.0)
[2017-07-16] MEDS ORDERED: POTASSIUM CHLORIDE 10 MEQ CONTROLLED RELEASE TAB PO ONE (10:30)
--- NOTE | 2017-07-16 10:32 | HHI.PR ---
Subjective Remarks Follow-up on patient with severe sepsis secondary to ingestion of rubbing alcohol, Benadryl and Tylenol. Patient seen and examined. Patient asleep but awakens easily to voice. She denies any complaints. She denies any fever or chills. Denies any nausea, vomiting or abdominal pain. Denies any chest pain or shortness of breath. Denies any urinary complaints. States she had a normal bowel movement this morning. She denies any shaking, anxiety or hallucinations. Objective Vitals Vital Signs Date Time Temp Pulse Resp B/P (MAP) Pulse Ox O2 Delivery O2 Flow Rate FiO2 07/16/17 07:35 96.9 81 16 153/85 (107) 96 07/16/17 07:06 74 07/16/17 04:15 96.7 77 16 138/71 (93) 98 07/16/17 00:05 96.5 79 16 143/81 (101) 100 07/15/17 20:25 98.1 84 17 154/74 (100) 98 07/15/17 16:00 98.6 91 18 148/78 (101) 98 07/15/17 15:00 92 18 141/74 (96) 96 07/15/17 13:42 96 18 151/70 (97) 96 Room Air 07/15/17 12:00 94 15 143/84 (103) 95 Room Air 07/15/17 11:15 96 22 153/81 (105) 96 Room Air 07/15/17 10:35 98.4 108 20 164/97 (119) 94 Room Air 07/15/17 10:35 98.4 108 15 164/97 (119) 94 07/15/17 10:30 94 Room Air I/O 07/15/17 07/15/17 07/15/17 07/16/17 07/16/17 07/16/17 07:00 15:00 23:00 07:00 15:00 23:00 Intake Total 1000 ml 220 ml 240 ml Balance 1000 ml 220 ml 240 ml Intake Oral 220 ml 240 ml IV Total 1000 ml # Voids 1 1 # Bowel Movements 0 0 Result Diagram: 07/15/17 1040 07/16/17 0804 Imaging Last Impressions Chest X-Ray 07/15/17 1056 Signed Impressions: Service Date/Time: Saturday, July 15, 2017 11:13 - CONCLUSION: No acute disease. No significant change has occurred. Rio Vick MD Objective Remarks GENERAL: This is a well-nourished, well-developed patient, in no apparent distress. Resting comfortably in bed. Awake and alert. SKIN: Warm and dry. HEAD: Atraumatic. Normocephalic. EYES: Extraocular motions intact. No scleral icterus. No injection or drainage. ENT: Nose without bleeding, purulent drainage. Airway patent. MMM. NECK: Trachea midline. CARDIOVASCULAR: Regular rate and rhythm without murmurs, gallops, or rubs. RESPIRATORY: Clear to auscultation. Breath sounds equal bilaterally. No wheezes , rales, or rhonchi. GASTROINTESTINAL: Abdomen soft, non-tender, nondistended. No hepato-splenomegaly , or palpable masses. No guarding. MUSCULOSKELETAL: Extremities without clubbing, cyanosis, or edema. NEUROLOGICAL: Awake and alert. Able to all extremities spontaneously. Nonfocal. Normal speech. Non-tremulous. Medications and IVs Current Medications Medications (Trade) Dose Ordered Sig/Gia Route Start Time Stop Time Status Last Admin (NS Flush) 2 ml UNSCH PRN IVF 07/15/17 11:00 07/15/17 11:07 (Zofran Inj) 4 mg Q6H PRN IVP 07/15/17 14:15 (Heparin Inj) 5,000 units Q12H SQ 07/15/17 17:00 07/16/17 05:49 (Narcan Inj) 0.4 mg UNSCH PRN IV PUSH 07/15/17 14:15 (Milk Of Magnesia Liq) 30 ml Q12H PRN PO 07/15/17 14:15 07/16/17 06:59 (Senokot) 17.2 mg Q12H PRN PO 07/15/17 14:15 07/16/17 06:59 (Dulcolax Supp) 10 mg DAILY PRN RECTAL 07/15/17 14:15 (Lactulose Liq) 30 ml DAILY PRN PO 07/15/17 14:15 (D50w (Vial) Inj) 50 ml UNSCH PRN IV PUSH 07/15/17 14:15 (Glucagon Inj) 1 mg UNSCH PRN OTHER 07/15/17 14:15 (NovoLOG SUPPLEMENTAL SCALE) 1 ACHS SLIDING SCALE SQ 10/14/17 17:00 07/15/17 21:47 (Romazicon Inj) 0.2 mg Q1M PRN IV PUSH 07/15/17 14:15 (Ativan) 1 mg Q4H PRN PO 07/15/17 14:15 (Ativan Inj) 1 mg Q4H PRN IV PUSH 07/15/17 14:15 (Ativan) 2 mg Q2H PRN PO 07/15/17 14:15 (Ativan Inj) 2 mg Q2H PRN IV PUSH 07/15/17 14:15 (Ativan Inj) 2 mg Q1H PRN IV PUSH 07/15/17 14:15 (Ativan Inj) 2 mg Q15M PRN IV PUSH 07/15/17 14:15 Potassium Chloride/Sodium Chloride 1,000 ml @ 125 mls/hr Q8H IV 07/15/17 14:15 07/16/17 05:50 (Vitamin B1) 100 mg DAILY PO 07/16/17 09:00 07/16/17 09:05 (Folate) 1 mg DAILY PO 07/16/17 09:00 07/16/17 09:05 (Theragran) 1 tab DAILY PO 07/16/17 09:00 07/16/17 09:05 A/P Assessment and Plan 67-year-old female with past medical history significant for alcohol abuse, diabetes, depression and bipolar disorder who presents to [facility] ED after ingesting nearly a bottle of rubbing alcohol and taking 5-6 Benadryl and Tylenol this morning in an effort to "get high". Severe sepsis with white count 19.1, heart rate 108, RR 22 with acute kidney failure secondary to ingestion of rubbing alcohol, Benadryl and Tylenol - Urine drug screen unremarkable with salicylates level less than 1.7, acetaminophen level less than 2.0 and alcohol level less than 3 - Continuous cardiac monitoring - IVF - Lactic acid level 1.4 - Monitor white count, today's lab pending Acute kidney failure - Secondary to ingestion of rubbing alcohol, Benadryl and Tylenol as well as suspected dehydration - continue IV fluids - Creatinine improving - Baseline appears to be around 0.8 - Will consider nephrology consult if kidney function worsens - Monitor kidney function closely - Avoid nephrotoxic agents - encourage po intake DM - Patient reports taking Glucophage at home. Will not resume at this time. - Blood sugars adequately controlled - Diabetic diet - Accu-Cheks - ISS Thrombocytosis - Suspect due to alcohol use/withdrawal - B12 level 314 History of alcohol abuse - LFTs WNL - CIWA protocol - monitor for signs of withdrawal - Thiamine, folic acid and MVI daily DVT prophylaxis - Heparin subcutaneous Discussed with patient and Soha Montano Jul 16, 2017 10:32
[2017-07-16 12:26] LABS: BASOPHIL # 0.1 TH/MM3 (0-0.2); BASOPHIL % 0.8 % (0.0-2.0); EOSINOPHIL % 0.4 % (0.0-4.0); HEMATOCRIT 36.8 % (35.0-46.0); HEMO FLAGS DIFF FINAL; LYMPH % 19.3 % (9.0-44.0); LYMPHOCYTE # 2.3 TH/MM3 (1.0-4.8); MEAN CELL VOLUME 92.1 FL (80.0-100.0); MEAN CORPUSCULAR HEMOGLOBIN 32.1 PG (27.0-34.0); MEAN CORPUSCULAR HGB CONC 34.9 % (32.0-36.0); NEUT % 75.5 % (16.0-70.0); PLATELET COUNT 546 TH/MM3 (150-450); RED BLOOD COUNT 3.99 MIL/MM3 (4.00-5.30); RED CELL DISTRIBUTION WIDTH 14.8 % (11.6-17.2); WHITE BLOOD COUNT 11.9 TH/MM3 (4.0-11.0)
[2017-07-16] MEDS: LORazepam 1 MG TAB PO PRN ×2 (15:12→20:20)
[2017-07-17] VITALS (7 sets, daily range): BP systolic 140–169; BP diastolic 80–98; PULSE 68–98; RESP 16–18; TEMP 95.6–97.9; O2SAT 95–98
[2017-07-17] MEDS: HEPARIN SODIUM - SQ 10,000 UNITS/ML VIAL SQ SCH ×2 (04:50→17:15)
[2017-07-17] MEDS: LORazepam 1 MG TAB PO PRN ×3 (04:52→17:14)
[2017-07-17] MEDS: NS + KCL 20 MEQ INJ 1,000 ML IV SCH ×2 (06:02→19:22)
[2017-07-17 07:58] LABS: ALT (GPT) 19 U/L (10-53); ANION GAP 7 MEQ/L (5-15); AST (GOT) 15 U/L (15-37); BICARBONATE 26.4 MEQ/L (21.0-32.0); BLOOD UREA NITROGEN 7 MG/DL (7-18); CHLORIDE 105 MEQ/L (98-107); GLOMERULAR FILTRATION RATE 52 ML/MIN (>89); POTASSIUM 3.7 MEQ/L (3.5-5.1); SODIUM (NA) 138 MEQ/L (136-145)
[2017-07-17 08:00] LABS: ALKALINE PHOSPHATASE 59 U/L (45-117); TOTAL BILIRUBIN ADULT 0.4 MG/DL (0.2-1.0)
[2017-07-17] MEDS: INSULIN ASPART SUPPLEMENTAL SCALE SQ SCH ×4 (08:00→20:29)
[2017-07-17] MEDS ORDERED: PNEUMOCOCCAL POLYVALENT INJ 25 MCG/0.5 ML SYR IM ONE (09:00)
[2017-07-17] MEDS: FOLIC ACID 1 MG TAB PO SCH (09:44)
[2017-07-17] MEDS: THIAMINE HCL 100 MG TAB PO SCH (09:44)
[2017-07-17] MEDS: MULTIVITAMIN TAB PO SCH (09:45)
--- NOTE | 2017-07-17 11:44 | HHI.PR ---
Subjective Remarks Follow-up alcohol withdrawal, acute renal failure. Patient states that she still feels withdrawal symptoms. She does feel that they are improving. She does not feel ready to go home today. Denies chest pain or dyspnea. No nausea, vomiting, diarrhea, constipation. Objective Vitals Vital Signs Date Time Temp Pulse Resp B/P (MAP) Pulse Ox O2 Delivery O2 Flow Rate FiO2 07/17/17 07:10 95.9 68 17 140/83 (102) 96 07/17/17 04:00 96.8 72 16 143/82 (102) 98 07/17/17 00:00 95.6 79 17 149/80 (103) 98 07/16/17 19:00 97.5 74 07/16/17 19:00 97.5 74 16 169/85 (113) 99 07/16/17 19:00 97.5 74 07/16/17 19:00 97.5 74 15 104/ 100 07/16/17 15:29 96.9 76 17 143/72 (95) 98 I/O 07/16/17 07/16/17 07/16/17 07/17/17 07/17/17 07/17/17 07:00 15:00 23:00 07:00 15:00 23:00 Intake Total 1603 ml 480 ml 480 ml Balance 1603 ml 480 ml 480 ml Intake Oral 960 ml 480 ml 480 ml IV Total 643 ml # Voids 4 3 3 # Bowel Movements 1 0 0 Result Diagram: 07/16/17 1139 07/17/17 0657 Imaging Last Impressions Chest X-Ray 07/15/17 1056 Signed Impressions: Service Date/Time: Saturday, July 15, 2017 11:13 - CONCLUSION: No acute disease. No significant change has occurred. Rio Vick MD Objective Remarks General: Elderly female in no acute distress. Mildly tremulous. Heart: Regular rate and rhythm. No murmur. Lungs: Clear to auscultation bilaterally. No wheezes, rales, or rhonchi. Breathing is nonlabored. Abdomen: Soft, nontender, nondistended. Extremities: No lower extremity edema. Psych: Alert and oriented. Procedures None Urinary Catheter: No Vascular Central Line Catheter: No A/P Problem List: (1) Alcohol withdrawal ICD Code: F10.239 - Alcohol dependence with withdrawal, unspecified (2) Isopropyl alcohol poisoning ICD Code: T51.2X1A - Toxic effect of 2-Propanol, accidental (unintentional), initial encounter (3) Acute kidney injury ICD Code: N17.9 - Acute kidney failure, unspecified Status: Acute (4) Leukocytosis, unspecified ICD Code: D72.829 - Elevated white blood cell count, unspecified Status: Acute (5) Diabetes mellitus ICD Code: E11.9 - Type 2 diabetes mellitus without complications Status: Acute Assessment and Plan 1. Severe sepsis: Presented with tachycardia, tachypnea, leukocytosis, acute renal failure. Leukocytosis has improved. No clear source of infection at this time. 2. Acute renal failure: Secondary to ingestion of rubbing alcohol, Benadryl, Tylenol. Patient also likely was dehydrated. Creatinine improving with IV fluids. 3. Alcohol abuse, withdrawal: Patient was counseled. Continue CIWA protocol. Alcohol withdrawal precautions. 4. Leukocytosis: Likely secondary to alcohol abuse. 5. Diabetes mellitus: Metformin on hold. Monitor Accu-Cheks and cover with sliding scale insulin. Diabetic diet. 6. DVT prophylaxis: Heparin. Discharge Planning Anticipate discharge home tomorrow pending further clinical improvement. Reginald Angel MD Jul 17, 2017 11:44
[2017-07-17] MEDS: LORazepam 2 MG/ML VIAL IV PUSH PRN (21:52)
[2017-07-18 00:03] VITALS: BP 152/92; PULSE 73; RESP 18; TEMP 96.3; O2SAT 97
[2017-07-18 03:50] VITALS: BP 134/80; PULSE 69; RESP 18; TEMP 96.7; O2SAT 97
[2017-07-18] MEDS: HEPARIN SODIUM - SQ 10,000 UNITS/ML VIAL SQ SCH (05:00)
[2017-07-18] MEDS: LORazepam 2 MG/ML VIAL IV PUSH PRN (05:00)
[2017-07-18 07:33] LABS: BICARBONATE 26.5 MEQ/L (21.0-32.0); POTASSIUM 3.3 MEQ/L (3.5-5.1)
[2017-07-18 07:55] VITALS: BP 137/87; PULSE 71; RESP 18; TEMP 95.7; O2SAT 96
[2017-07-18 08:35] VITALS: PULSE 71
[2017-07-18] MEDS ORDERED: POTASSIUM CHLORIDE 10 MEQ CONTROLLED RELEASE TAB PO ONE (08:35)
[2017-07-18] MEDS ORDERED: THERTAB15 PO (09:26)
[2017-07-18] MEDS ORDERED: FOLI1TAB6 PO (09:26)
[2017-07-18] MEDS ORDERED: GNP100TA3 PO (09:26)
--- NOTE | 2017-07-18 09:27 | HHI.DCPOC ---
Discharge Care Plan Diagnosis: (1) Alcohol withdrawal (2) Isopropyl alcohol poisoning Goals to Promote Your Health * To prevent worsening of your condition and complications * To maintain your health at the optimal level Directions to Meet Your Goals Take your medications as prescribed Follow your dietary instruction Follow activity as directed Keep your appointments as scheduled Take your immunizations and boosters as scheduled If your symptoms worsen call your PCP, if no PCP go to Urgent Care Center or Emergency Room Smoking is Dangerous to Your Health. Avoid second hand smoke Call the 24-hour hour crisis hotline for domestic abuse at Reginald Angel MD Jul 18, 2017 09:27
--- NOTE | 2017-07-18 09:31 | HHI.DS ---
Discharge Summary Admission Date Jul 15, 2017 at 13:36 Discharge Date: Jul 18, 2017 Admitting Diagnosis acute kidney injury, methanol ingestion, tylenol abuse, diabetes bill (1) Alcohol withdrawal ICD Code: F10.239 - Alcohol dependence with withdrawal, unspecified (2) Isopropyl alcohol poisoning ICD Code: T51.2X1A - Toxic effect of 2-Propanol, accidental (unintentional), initial encounter (3) Acute kidney injury ICD Code: N17.9 - Acute kidney failure, unspecified Status: Acute (4) Leukocytosis, unspecified ICD Code: D72.829 - Elevated white blood cell count, unspecified Status: Acute (5) Diabetes mellitus ICD Code: E11.9 - Type 2 diabetes mellitus without complications Status: Acute Procedures None Brief History - From Admission This is a 67-year-old female with past medical history significant for alcohol abuse, diabetes, depression and bipolar disorder who presents to [facility] ED after ingesting nearly a bottle of rubbing alcohol and taking 5-6 Benadryl and Tylenol this morning. Patient denies any attempt to harm herself and states the ingestion was "to get high". Patient reports that she stopped drinking several days ago but then had the urge to drink again. She normally drinks regular alcohol but since she did not have any on hand she opted drink rubbing alcohol instead. Patient admits to a long history of alcohol abuse. She states she's tried AA in the past but didn't like it. Per review of the medical record, she was admitted in June of last year after ingesting Listerine. Patient denies any complaints at present. She denies any fever, chills, headache, vision changes, nausea, vomiting, chest pain, shortness of breath, abdominal pain, urinary complaints, diarrhea or constipation. CBC/BMP: 07/16/17 1139 07/18/17 0556 Significant Findings Laboratory Tests Test 07/15/17 10:40 07/15/17 12:15 07/15/17 13:59 07/15/17 18:00 White Blood Count 19.1 TH/MM3 (4.0-11.0) Platelet Count 593 TH/MM3 (150-450) Mean Platelet Volume 6.7 FL (7.0-11.0) Neutrophils (%) (Auto) 83.4 % (16.0-70.0) Neutrophils # (Auto) 15.9 TH/MM3 (1.8-7.7) Creatinine 1.65 MG/DL (0.50-1.00) Random Glucose 175 MG/DL (74-106) Sodium Level 134 MEQ/L (136-145) Carbon Dioxide Level 20.8 MEQ/L (21.0-32.0) Estimat Glomerular Filtration Rate 31 ML/MIN (>89) Creatine Kinase MB 4.2 NG/ML (0.5-3.6) Troponin I LESS THAN 0.02 NG/ML Salicylates Level LESS THAN 1.7 MG/DL Acetaminophen Level LESS THAN 2.0 MCG/ML Urine Ketones 40 mg/dL (NEG) Urine Occult Blood TRACE (NEG) Urine Mucus FEW /lpf (OCC) Arterial Blood pH 7.50 (7.380-7.420) Arterial Blood Partial Pressure CO2 30 mmHg (38-42) Test 07/16/17 08:04 07/16/17 11:39 07/17/17 06:57 07/18/17 05:56 Creatinine 1.44 MG/DL (0.50-1.00) 1.06 MG/DL (0.50-1.00) Random Glucose 143 MG/DL (74-106) 122 MG/DL (74-106) 128 MG/DL (74-106) Potassium Level 3.1 MEQ/L (3.5-5.1) 3.3 MEQ/L (3.5-5.1) Estimat Glomerular Filtration Rate 36 ML/MIN (>89) 52 ML/MIN (>89) 67 ML/MIN (>89) Aspartate Amino Transf (AST/SGOT) 14 U/L (15-37) Albumin 3.2 GM/DL (3.4-5.0) 3.0 GM/DL (3.4-5.0) White Blood Count 11.9 TH/MM3 (4.0-11.0) Red Blood Count 3.99 MIL/MM3 (4.00-5.30) Platelet Count 546 TH/MM3 (150-450) Neutrophils (%) (Auto) 75.5 % (16.0-70.0) Neutrophils # (Auto) 9.0 TH/MM3 (1.8-7.7) Total Protein 6.3 GM/DL (6.4-8.2) Calcium Level 8.1 MG/DL (8.5-10.1) 8.4 MG/DL (8.5-10.1) Imaging Last Impressions Chest X-Ray 07/15/17 1056 Signed Impressions: Service Date/Time: Saturday, July 15, 2017 11:13 - CONCLUSION: No acute disease. No significant change has occurred. Rio Vick MD PE at Discharge General: Elderly female in no acute distress. Mildly tremulous. Heart: Regular rate and rhythm. No murmur. Lungs: Clear to auscultation bilaterally. No wheezes, rales, or rhonchi. Breathing is nonlabored. Abdomen: Soft, nontender, nondistended. Extremities: No lower extremity edema. Psych: Alert and oriented. Pt update on day of discharge The patient states that she feels "much better" today. She states that her withdrawal symptoms have resolved. She wants to go home. She states that she will be reviewing the information given to her by case management regarding alcohol rehab options. I again counselled her regarding cessation of alcohol abuse. Hospital Course The patient was admitted for management of acute kidney injury and monitoring of symptoms following ingestion of isopropyl alcohol, Benadryl, Tylenol. The patient denied any depressive symptoms. Denied suicidal ideation. She stated that she took this combination to "get high". She was continued on IV fluids. Her renal function improved. She was continued on CIWA protocol for treatment of alcohol withdrawal. Her withdrawal symptoms improved. She was felt to be stable for discharge home. She was advised to avoid alcohol. She was given information by case management regarding options for outpatient alcohol rehabilitation. She also stated that there is a program through her job that could provide some assistance as well. Pt Condition on Discharge: Stable Discharge Disposition: Discharge Home Discharge Time: > 30 minutes Discharge Instructions DIET: Follow Instructions for: Diabetic Diet Additional Diet Instructions: Avoid alcohol. Activities you can perform: Regular-No Restrictions Follow up Referrals: Drug/Alcohol Rehab PCP Follow-up - 1 Week New Medications: Folic Acid (Folic Acid) 1 Mg Tablet 1 MG PO DAILY for Nutritional Supplement, #30 TAB 0 Refills Multiple Vitamin (Thera/Beta-Carotene) 1 Tab Tab 1 TAB PO DAILY for Nutritional Supplement, #30 TAB 0 Refills Thiamine HCl (Gnp Vitamin B-1) 100 Mg Tab 100 MG PO DAILY for Nutritional Supplement, #30 TAB 0 Refills Reginald Angel MD Jul 18, 2017 09:31
[2017-07-18] MEDS: MULTIVITAMIN TAB PO SCH (09:47)
[2017-07-18] MEDS: FOLIC ACID 1 MG TAB PO SCH (09:47)
[2017-07-18] MEDS: THIAMINE HCL 100 MG TAB PO SCH (09:47)
[2017-07-18] MEDS: INSULIN ASPART SUPPLEMENTAL SCALE SQ SCH (09:52)
[2017-07-18] MEDS: NS + KCL 20 MEQ INJ 1,000 ML IV SCH (09:52)
[2017-07-18] MEDS ORDERED: METF1000 PO (15:52)
[2017-07-19] MEDS ORDERED: CHLO10CA5 PO (09:56)
== END 2017-07-18 11:53 | disposition home or self-care (01) | DRG 918 ==
LOC: NEPC 10:26 → NEDA 13:36 → N06A 15:09
PROVIDERS: ADMIT Family Medicine; ATTEND Family Medicine
DX: T39.1X1A Poisoning by 4-Aminophenol derivatives, accidental (unintentional), initial encounter (principal); N17.9 Acute kidney failure, unspecified; E87.2 Acidosis; F31.9 Bipolar disorder, unspecified; F10.239 Alcohol dependence with withdrawal, unspecified; I10 Essential (primary) hypertension; E11.9 Type 2 diabetes mellitus without complications; D75.89 Other specified diseases of blood and blood-forming organs; T51.2X1A Toxic effect of 2-Propanol, accidental (unintentional), initial encounter; T45.0X1A Poisoning by antiallergic and antiemetic drugs, accidental (unintentional), initial encounter; E86.0 Dehydration; I45.81 Long QT syndrome; M19.90 Unspecified osteoarthritis, unspecified site; E78.5 Hyperlipidemia, unspecified; Y90.0 Blood alcohol level of less than 20 mg/100 ml; Y92.9 Unspecified place or not applicable; F41.9 Anxiety disorder, unspecified; Z23 Encounter for immunization; Z88.0 Allergy status to penicillin; Z88.5 Allergy status to narcotic agent; Z96.642 Presence of left artificial hip joint; Z96.652 Presence of left artificial knee joint
CPT/HCPCS: 36600; 71010; 80048; 80053; 80076; 80307; 81001; 82550; 82552; 82607; 82805; 82948; 83605; 83735; 83935; 84443; 84484; 85025; 90471; 90686; 90732; 93005; 96360; G0009; J1644; J1815; J2060; J3480; J7030; Q2038

== ENCOUNTER 2017-07-18 15:15 | Observation (INO) | payer MEDICARE, OTHER ==
[~2017-07-18] VITALS: Ht 165.1 cm; Wt 68.0 kg
[2017-07-18] VITALS (8 sets, daily range): BP systolic 141–164; BP diastolic 88–95; PULSE 86–106; RESP 13–20; TEMP 97.9–99.1; O2SAT 95–99
[~2017-07-18 15:15] MED LIST changes: -BLOOMIS OTHER; -DIPH25TA2 PO; -FLUO20CA12 PO; +FOLI1TAB6 PO; +GNP100TA3 PO; -IBUP200T2 PO; -LAMO150T PO; -LOVA40TA PO; -METF1000 PO; -RISP2TAB2 PO; +THERTAB15 PO
[2017-07-18] MEDS ORDERED: SODIUM CHLORIDE 0.9% FLUSH 5 ML FLUSH IV FLUSH PRN (15:30)
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
[2017-07-18] MEDS ORDERED: METF1000 PO (15:52)
[2017-07-18] MEDS ORDERED: LORazepam 2 MG TAB PO PRN (16:15)
[2017-07-18] MEDS ORDERED: FLUMAZENIL 0.5 MG/5 ML VIAL IV PUSH PRN (16:15)
[2017-07-18] MEDS ORDERED: LORazepam 2 MG/ML VIAL IV PUSH PRN ×4 (16:15)
[2017-07-18] MEDS ORDERED: LORazepam 1 MG TAB PO PRN (16:15)
[2017-07-18 16:29] LABS: AUTOMATED NEUTROPHIL # 6.9 TH/MM3 (1.8-7.7); BASOPHIL # 0.1 TH/MM3 (0-0.2); BASOPHIL % 0.7 % (0.0-2.0); EOSINOPHIL # 0.1 TH/MM3 (0-0.4); EOSINOPHIL % 0.9 % (0.0-4.0); HEMATOCRIT 39.4 % (35.0-46.0); HEMO FLAGS DIFF FINAL; LYMPH % 16.9 % (9.0-44.0); LYMPHOCYTE # 1.5 TH/MM3 (1.0-4.8); MEAN CELL VOLUME 92.9 FL (80.0-100.0); MEAN CORPUSCULAR HGB CONC 34.4 % (32.0-36.0); MONO % 6.1 % (0.0-8.0); NEUT % 75.4 % (16.0-70.0); PLATELET COUNT 428 TH/MM3 (150-450); RED BLOOD COUNT 4.24 MIL/MM3 (4.00-5.30); RED CELL DISTRIBUTION WIDTH 14.4 % (11.6-17.2); WHITE BLOOD COUNT 9.1 TH/MM3 (4.0-11.0)
[2017-07-18 16:34] LABS: BLOOD, URINE NEG (NEG); GLUCOSE,URINE NEG (NEG); KETONE, URINE 10 mg/dL (NEG); NITRITE,URINE NEG (NEG); PH, URINE 6.5 (5.0-8.5); URINE COLOR LIGHT-YELLOW (YELLW/STRAW)
--- NOTE | 2017-07-18 16:35 | RADRPT ---
EXAM DATE/TIME: 07/18/2017 16:13 [place] COMPARISON: CT BRAIN W/O CONTRAST, July 10, 2017, 14:22. INDICATIONS : Evaluation for ETOH abuse. RADIATION DOSE: 56.46 CTDIvol (mGy) MEDICAL HISTORY : Hypertension. Diabetes mellitus type 2. SURGICAL HISTORY : Hysterectomy. ENCOUNTER: Initial ACUITY: 1 day PAIN SCALE: 5/10 LOCATION: cranial TECHNIQUE: Multiple contiguous axial images were obtained of the head. Using automated exposure control and adj ustment of the mA and/or kV according to patient size, radiation dose was kept as low as reasonably a chievable to obtain optimal diagnostic quality images. DICOM format image data is available electro nically for review and comparison. FINDINGS: CEREBRUM: The ventricles are normal for age. No evidence of midline shift, mass lesion, hemorrhage or acute in farction. No extra-axial fluid collections are seen. POSTERIOR FOSSA: The cerebellum and brainstem are intact. The 4th ventricle is midline. The cerebellopontine angle i s unremarkable. EXTRACRANIAL: The visualized portion of the orbits is intact. SKULL: The calvaria is intact. No evidence of skull fracture. CONCLUSION: No acute disease. Stan Jorgensen Jr., MD on July 18, 2017 at 16:31 Board Certified Radiologist. This report was verified electronically.
[2017-07-18 16:37] LABS: COMMENT (UR) CATH-CULT NOT IND; CULTURE IF INDICATED CATH CULTURE NOT IND
[2017-07-18 17:06] LABS: ALKALINE PHOSPHATASE 66 U/L (45-117); ALT (GPT) 29 U/L (10-53); ANION GAP 11 MEQ/L (5-15); AST (GOT) 49 U/L (15-37); BICARBONATE 24.1 MEQ/L (21.0-32.0); BLOOD UREA NITROGEN 6 MG/DL (7-18); CHLORIDE 97 MEQ/L (98-107); GLOMERULAR FILTRATION RATE 64 ML/MIN (>89); POTASSIUM 4.4 MEQ/L (3.5-5.1); SODIUM (NA) 132 MEQ/L (136-145); TOTAL BILIRUBIN ADULT 0.5 MG/DL (0.2-1.0)
[2017-07-18 17:07] LABS: ACETAMINOPHEN LESS THAN 2.0 MCG/ML (10.0-30.0); ALCOHOL 74 MG/DL (0-5)
[2017-07-18] MEDS ORDERED: BISACODYL 10 MG SUPP RECTAL PRN (17:30)
[2017-07-18] MEDS ORDERED: LACTULOSE SYRUP 20 GM/30 ML CUP PO PRN (17:30)
[2017-07-18] MEDS ORDERED: ONDANSETRON HCL 4 MG/2 ML VIAL IVP PRN (17:30)
[2017-07-18] MEDS ORDERED: NALOXONE HCL 0.4 MG/ML AMP IV PUSH PRN (17:30)
[2017-07-18] MEDS ORDERED: MAGNESIUM HYDROXIDE SUSP 30 ML CUP PO PRN (17:30)
[2017-07-18] MEDS ORDERED: SODIUM CHLORIDE 0.9% FLUSH 10 ML FLUSH IV FLUSH PRN (17:30)
[2017-07-18] MEDS ORDERED: SENNOSIDES 8.6 MG TAB PO PRN (17:30)
--- NOTE | 2017-07-18 17:44 | HHI.HP ---
HPI Service [facility] Hospitalists Primary Care Physician Heather Sullivan MD Admission Diagnosis alcohol intoxication/MVC/CIWA protocol Diagnoses: (1) Alcohol withdrawal Diagnosis: Principal (2) History of alcohol abuse Diagnosis: Secondary Chief Complaint: Alcohol withdrawal Travel History International Travel<30 Days: No Contact w/Intl Traveler <30 Da: No Traveled to Known Affected Are: No History of Present Illness Written by Ary Andres, acting as scribe for Dr. Jackson on 07/18/17 at 17:42. This is a 67-year-old female with past medical history significant for alcohol abuse, diabetes, depression and bipolar disorder who was discharged earlier today for treatment of ethanol toxicity who presents again to [facility] with continued feelings of withdrawal and continued alcohol consumption. Patient states she did make it home, was feeling the Ativan from the hospital wearing off and decided to drink three, 12 oz beers. Patient continued to feel withdrawal symptoms even after drinking. Denies any recent fever, chills, chest pain, headache, cough, shortness of breath, ab pain, n/v/d or dysuria. Ethanol level on presentation was 74. Tox screen negative. Ammonia 28. Patient states she drinks 2-3 bottles of beer on her days off of work, currently holds a job at [employer]. Patient states that her job is willing to provide her help with her alcohol addiction. Review of Systems Constitutional: DENIES: Fever, Chills Eyes: DENIES: Diplopia Respiratory: DENIES: Cough, Shortness of breath Cardiovascular: DENIES: Chest pain Gastrointestinal: DENIES: Abdominal pain, Constipation, Diarrhea, Nausea, Vomiting Except as stated in HPI: all other systems reviewed are Neg Past Family Social History Past Medical History History of alcohol abuse with multiple hospitalizations Diabetes mellitus Major depression Anxiety Dyslipidemia Past Surgical History Left total hip replacement Hysterectomy Reported Medications Active Thera/Beta-Carotene (Multiple Vitamin) 1 Tab Tab 1 Tab PO DAILY Gnp Vitamin B-1 (Thiamine HCl) 100 Mg Tab 100 Mg PO DAILY Folic Acid 1 Mg Tablet 1 Mg PO DAILY Reported Metformin (Metformin HCl) 1,000 Mg Tab 1,000 Mg PO BIDPC Allergies: Coded Allergies: codeine (Unverified Allergy, Severe, Hives, 07/18/17) penicillin G (Unverified Allergy, Unknown, 07/18/17) Active Ordered Medications Current Medications Medications (Trade) Dose Ordered Sig/Gia Route Start Time Stop Time Status Last Admin (Romazicon Inj) 0.2 mg Q1M PRN IV PUSH 07/18/17 16:15 (Ativan) 1 mg Q4H PRN PO 07/18/17 16:15 (Ativan Inj) 1 mg Q4H PRN IV PUSH 07/18/17 16:15 07/18/17 16:31 (Ativan) 2 mg Q2H PRN PO 07/18/17 16:15 (Ativan Inj) 2 mg Q2H PRN IV PUSH 07/18/17 16:15 (Ativan Inj) 2 mg Q1H PRN IV PUSH 07/18/17 16:15 (Ativan Inj) 2 mg Q15M PRN IV PUSH 07/18/17 16:15 Sodium Chloride 1,000 ml @ 100 mls/hr Q10H IV 07/18/17 18:00 (NS Flush) 2 ml UNSCH PRN IV FLUSH 07/18/17 17:30 (NS Flush) 2 ml BID IV FLUSH 07/18/17 21:00 (Tylenol) 650 mg Q4H PRN PO 07/18/17 17:30 (Zofran Inj) 4 mg Q6H PRN IVP 07/18/17 17:30 (Narcan Inj) 0.4 mg UNSCH PRN IV PUSH 07/18/17 17:30 (Pavithra-Colace) 1 tab BID PO 07/18/17 21:00 (Milk Of Magnesia Liq) 30 ml Q12H PRN PO 07/18/17 17:30 (Senokot) 17.2 mg Q12H PRN PO 07/18/17 17:30 (Dulcolax Supp) 10 mg DAILY PRN RECTAL 07/18/17 17:30 (Lactulose Liq) 30 ml DAILY PRN PO 07/18/17 17:30 Family History Patient denies any significant family medical history. Social History Patient admits to a long history of alcohol abuse. She denies any tobacco use or illicit drug use. Physical Exam Vital Signs Vital Signs Date Time Temp Pulse Resp B/P (MAP) Pulse Ox O2 Delivery O2 Flow Rate FiO2 07/18/17 15:47 99 Room Air 07/18/17 15:46 99.1 99 18 141/88 (105) 99 Room Air 07/18/17 15:29 99.1 100 13 144/91 (108) 96 Physical Exam GENERAL: This is a well-nourished, well-developed female patient, lying in bed in no apparent distress. SKIN: No rashes, ecchymoses or lesions. Warm and dry. HEAD: Atraumatic. Normocephalic. Pupils equal round and reactive. Extraocular motions intact. No scleral icterus. No injection or drainage. Nose without bleeding. Airway patent. NECK: Trachea midline. No JVD. Supple. CARDIOVASCULAR: Regular rate and rhythm without murmurs, gallops, or rubs. RESPIRATORY: Clear to auscultation. Breath sounds equal bilaterally. No wheezes , rales, or rhonchi. GASTROINTESTINAL: Abdomen soft, non-tender, nondistended. No hepato-splenomegaly , or palpable masses. No guarding. MUSCULOSKELETAL: Extremities without clubbing, cyanosis, or edema. No joint tenderness, effusion, or edema noted. No tremors. NEUROLOGICAL: Awake and alert. Cranial nerves II through XII intact. Motor and sensory grossly within normal limits. Five out of 5 muscle strength in all muscle groups. Normal speech. Laboratory Laboratory Tests Test 07/18/17 16:05 White Blood Count 9.1 Red Blood Count 4.24 Hemoglobin 13.6 Hematocrit 39.4 Mean Corpuscular Volume 92.9 Mean Corpuscular Hemoglobin 32.0 Mean Corpuscular Hemoglobin Concent 34.4 Red Cell Distribution Width 14.4 Platelet Count 428 Mean Platelet Volume 6.8 Neutrophils (%) (Auto) 75.4 Lymphocytes (%) (Auto) 16.9 Monocytes (%) (Auto) 6.1 Eosinophils (%) (Auto) 0.9 Basophils (%) (Auto) 0.7 Neutrophils # (Auto) 6.9 Lymphocytes # (Auto) 1.5 Monocytes # (Auto) 0.6 Eosinophils # (Auto) 0.1 Basophils # (Auto) 0.1 CBC Comment DIFF FINAL Differential Comment Urine Color LIGHT-YELLOW Urine Turbidity CLEAR Urine pH 6.5 Urine Specific Lutz 1.002 Urine Protein NEG Urine Glucose (UA) NEG Urine Ketones 10 Urine Occult Blood NEG Urine Nitrite NEG Urine Bilirubin NEG Urine Urobilinogen LESS THAN 2.0 Urine Leukocyte Esterase MOD Urine RBC LESS THAN 1 Urine WBC 2 Microscopic Urinalysis Comment CATH-CULT NOT IND Blood Urea Nitrogen 6 Creatinine 0.88 Random Glucose 109 Total Protein 7.8 Albumin 3.7 Calcium Level 9.2 Alkaline Phosphatase 66 Aspartate Amino Transf (AST/SGOT) 49 Alanine Aminotransferase (ALT/SGPT) 29 Total Bilirubin 0.5 Sodium Level 132 Potassium Level 4.4 Chloride Level 97 Carbon Dioxide Level 24.1 Anion Gap 11 Estimat Glomerular Filtration Rate 64 Ammonia 28 Salicylates Level LESS THAN 1.7 Urine Opiates Screen NEG Acetaminophen Level LESS THAN 2.0 Urine Barbiturates Screen NEG Urine Amphetamines Screen NEG Urine Benzodiazepines Screen NEG Urine Cocaine Screen NEG Urine Cannabinoids Screen NEG Ethyl Alcohol Level 74 Result Diagram: 07/18/17 1605 07/18/17 1605 Imaging Last Impressions Head CT 07/18/17 1535 Signed Impressions: Service Date/Time: Tuesday, July 18, 2017 16:13 - CONCLUSION: No acute disease. Stan Jorgensen Jr., MD Capjeffery VTE Risk Assessment Caprini VTE Risk Assessment: Mod/High Risk (score >= 2) Caprini Risk Assessment Model Point Value = 1 Point Value = 2 Point Value = 3 Point Value = 5 Age 41-60 Minor surgery BMI > 25 kg/m2 Swollen legs Varicose veins or History of unexplained or recurrent spontaneous Oral contraceptives or hormone replacement Sepsis (< 1 month) Serious lung disease, including pneumonia (< 1 month) Abnormal pulmonary function Acute myocardial infarction Congestive heart failure (< 1 month) History of inflammatory bowel disease Medical patient at bed rest Age 61-74 Arthroscopic surgery Major open surgery (> 45 min) Laparoscopic surgery (> 45 min) Malignancy Confined to bed (> 72 hours) Immobilizing plaster cast Central venous access Age >= 75 History of VTE Family history of VTE Factor V Leiden Prothrombin [id number] Lupus anticoagulant Anticardiolipin antibodies Elevated serum homocysteine Heparin-induced thrombocytopenia Other congenital or acquired thrombophilia Stroke (< 1 month) Elective arthroplasty Hip, pelvis, or leg fracture Acute spinal cord injury (< 1 month) Prophylaxis Regimen Total Risk Factor Score Risk Level Prophylaxis Regimen 0-1 Low Early ambulation 2 Moderate Order ONE of the following: *Sequential Compression Device (SCD) *Heparin 5000 units SQ BID 3-4 Higher Order ONE of the following medications: *Heparin 5000 units SQ TID *Enoxaparin/Lovenox 40 mg SQ daily (WT < 150 kg, CrCl > 30 mL/min) *Enoxaparin/Lovenox 30 mg SQ daily (WT < 150 kg, CrCl > 10-29 mL/min) *Enoxaparin/Lovenox 30 mg SQ BID (WT < 150 kg, CrCl > 30 mL/min) AND/OR *Sequential Compression Device (SCD) 5 or more Highest Order ONE of the following medications: *Heparin 5000 units SQ TID (Preferred with Epidurals) *Enoxaparin/Lovenox 40 mg SQ daily (WT < 150 kg, CrCl > 30 mL/min) *Enoxaparin/Lovenox 30 mg SQ daily (WT < 150 kg, CrCl > 10-29 mL/min) *Enoxaparin/Lovenox 30 mg SQ BID (WT < 150 kg, CrCl > 30 mL/min) AND *Sequential Compression Device (SCD) Assessment and Plan Assessment and Plan This is a 67-year-old female with past medical history significant for alcohol abuse, diabetes, depression and bipolar disorder who was discharged earlier today for treatment of ethanol toxicity who presents again to [facility] with continued feelings of withdrawal and continued alcohol consumption. Ethanol level on presentation was 74. Tox screen negative. Ammonia 28. Head CT negative. Alcohol withdrawal History of alcohol abuse Recent admission for ethanol toxicity - Head CT reviewed showing no acute disease. - Urine drug screen unremarkable with salicylates level less than 1.7, acetaminophen level less than 2.0 and alcohol level 74. - Ativan IV given in ED. Continue with CIWA protocol. Monitor for withdrawal activity. Continuous cardiac monitoring. - Ammonia level 28 on presentation. - Ensure hydration, NS @ 100 ml/hr. - Thiamine, folic acid and MVI daily. Type 2 diabetes mellitus, chronic - Diabetic diet - Accu-Checks ACHS. sliding scale insulin, cover as needed. Monitor trends. DVT prophylaxis: SCDs. Ary Andres Jul 18, 2017 17:44
[2017-07-18] MEDS: SODIUM CHLOR 0.9% 1000 ML INJ 1,000 ML IV SCH (18:12)
[2017-07-18] MEDS: DOCUSATE SODIUM 50 MG/SENNA 8.6 MG TAB PO SCH (20:53)
[2017-07-18] MEDS: SODIUM CHLORIDE 0.9% FLUSH 10 ML FLUSH IV FLUSH SCH (20:56)
[2017-07-18] MEDS ORDERED: DEXTROSE 50% IN WATER 50 ML VIAL(D50) IV PUSH PRN (21:30)
[2017-07-18] MEDS ORDERED: GLUCAGON 1 MG/ML VIAL OTHER PRN (21:30)
[2017-07-19 03:05] VITALS: BP 141/94; PULSE 78; RESP 18; TEMP 97.8; O2SAT 97
[2017-07-19] MEDS: SODIUM CHLOR 0.9% 1000 ML INJ 1,000 ML IV SCH ×2 (03:53→14:00)
[2017-07-19] MEDS: INSULIN ASPART SUPPLEMENTAL SCALE SQ SCH ×4 (08:29→21:48)
[2017-07-19] MEDS: FOLIC ACID 1 MG TAB PO SCH (08:31)
[2017-07-19] MEDS: DOCUSATE SODIUM 50 MG/SENNA 8.6 MG TAB PO SCH ×2 (08:31→21:48)
[2017-07-19] MEDS: MULTIVITAMINS/MINERALS THERAPEUTIC TAB PO SCH (08:31)
[2017-07-19] MEDS: SODIUM CHLORIDE 0.9% FLUSH 10 ML FLUSH IV FLUSH SCH ×2 (08:33→21:00)
[2017-07-19 08:55] VITALS: BP 142/90; PULSE 83; RESP 20; TEMP 98.1; O2SAT 97
[2017-07-19] MEDS ORDERED: PNEUMOCOCCAL POLYVALENT INJ 25 MCG/0.5 ML SYR IM ONE (09:00)
[2017-07-19] MEDS ORDERED: INFLUENZA VIRUS VACCINE (QUADRIVALENT) 0.5 ML SYR IM ONE (09:00)
[2017-07-19] MEDS ORDERED: THIAMINE HCL 100 MG TAB PO ONE (09:45)
--- NOTE | 2017-07-19 09:53 | HHI.PR ---
Subjective Remarks Patient says she is feeling better today. Denies any chest pain or shortness breath. Denies any nausea or vomiting. She is eating breakfast. Feels like she can go home on Librium taper this afternoon. She says she will stop drinking. Says he only reason she was drinking is because she was shaking. She says she does have double vision over the past month following a fall one month ago. She says she will follow-up with her primary care for this. She agrees to avoid driving until she sees her primary care. Objective Vital Signs Date Time Temp Pulse Resp B/P (MAP) Pulse Ox O2 Delivery O2 Flow Rate FiO2 07/19/17 08:55 98.1 83 20 142/90 (107) 97 07/19/17 03:05 97.8 78 18 141/94 (110) 97 07/19/17 01:07 Room Air 07/18/17 23:21 97.9 86 16 159/95 (116) 98 07/18/17 20:26 98.3 94 18 164/88 (113) 98 07/18/17 19:05 07/18/17 18:00 98 17 150/94 (112) 97 Room Air 07/18/17 17:00 90 20 148/89 (108) 95 Room Air 07/18/17 16:00 106 141/88 (105) 07/18/17 15:47 99 Room Air 07/18/17 15:46 99.1 99 18 141/88 (105) 99 Room Air 07/18/17 15:29 99.1 100 13 144/91 (108) 96 I/O 07/18/17 07/18/17 07/18/17 07/19/17 07/19/17 07/19/17 07:00 15:00 23:00 07:00 15:00 23:00 Intake Total 1000 ml Balance 1000 ml Intake IV Total 1000 ml Result Diagram: 07/18/17 1605 07/18/17 1605 Objective Remarks GENERAL: Patient sitting up in bed. Appears comfortable. Eating breakfast. She is alert and oriented 3. No tremor. No ataxia. SKIN: Warm and dry. HEAD: Normocephalic. EYES: No scleral icterus. No injection or drainage. Vision intact bilaterally. No nystagmus. NECK: Supple, trachea midline. No JVD. CARDIOVASCULAR: Regular rate and rhythm without murmurs, gallops, or rubs. RESPIRATORY: Breath sounds equal bilaterally. No accessory muscle use. GASTROINTESTINAL: Abdomen soft, non-tender, nondistended. MUSCULOSKELETAL: No cyanosis, or edema. BACK: Nontender without obvious deformity. No CVA tenderness. A/P Assessment and Plan This is a 67-year-old female with past medical history significant for alcohol abuse, diabetes, depression and bipolar disorder who was discharged earlier today for treatment of ethanol toxicity who presents again to [place] ED with continued feelings of withdrawal and continued alcohol consumption. Ethanol level on presentation was 74. Tox screen negative. Ammonia 28. Head CT negative. //Alcohol withdrawal History of alcohol abuse Recent admission for ethanol toxicity - Head CT reviewed showing no acute disease. - Urine drug screen unremarkable with salicylates level less than 1.7, acetaminophen level less than 2.0 and alcohol level 74. - Ativan IV given in ED. Continue with CIWA protocol. Monitor for withdrawal activity. Continuous cardiac monitoring. - Ammonia level 28 on presentation. - Ensure hydration, NS @ 100 ml/hr. - Thiamine, folic acid and MVI daily. = We'll discharge home on Librium taper. I'm confident the patient will be able to stop drinking on a Librium taper. Follow with primary care. //Type 2 diabetes mellitus, chronic - Diabetic diet - Accu-Checks ACHS. sliding scale insulin, cover as needed. Monitor trends. = Glucose acceptable. DVT prophylaxis: SCDs. Max Leon MD Jul 19, 2017 09:53
[2017-07-19] MEDS ORDERED: CHLO10CA5 PO (09:56)
[2017-07-19] MEDS: THIAMINE INJ 100 MG in SODIUM CHLORIDE 0.9% INJ 100 ML IV SCH (12:33)
[2017-07-19 12:36] VITALS: BP 188/97; PULSE 85; RESP 22; TEMP 97.7; O2SAT 99
--- NOTE | 2017-07-19 14:18 | EKG ---
Date Performed: 07/18/2017 Time Performed: 15:57:31 PTAGE: 67 years EKG: SINUS TACHYCARDIA POSSIBLE LEFT ATRIAL ENLARGEMENT MARKED LEFT AXIS DEVIATION RIGHT BUNDLE BRANCH BLOCK ANTERIOR MYOCARDIAL INFARCTION ABNORMAL ECG PREVIOUS TRACING : 07/15/2017 13.17 DOCTOR: Paco Bravo Interpretating Date/Time 07/19/2017 14:14:37
[2017-07-19 16:54] VITALS: BP 167/79; PULSE 84; RESP 22; TEMP 97.5; O2SAT 98
[2017-07-19 19:15] VITALS: BP 124/77; PULSE 78; RESP 18; TEMP 98.2; O2SAT 98
[2017-07-19] MEDS: ACETAMINOPHEN 325 MG TAB PO PRN (21:47)
[2017-07-19 23:46] VITALS: BP 172/96; RESP 18; TEMP 98.4; O2SAT 99
[2017-07-20 03:53] VITALS: BP 133/85; PULSE 75; RESP 18; TEMP 97.8; O2SAT 97
[2017-07-20] MEDS: INSULIN ASPART SUPPLEMENTAL SCALE SQ SCH (08:00)
[2017-07-20 08:11] VITALS: BP 143/79; PULSE 75; RESP 12; TEMP 97.1; O2SAT 99
[2017-07-20] MEDS: DOCUSATE SODIUM 50 MG/SENNA 8.6 MG TAB PO SCH (08:31)
[2017-07-20] MEDS: SODIUM CHLORIDE 0.9% FLUSH 10 ML FLUSH IV FLUSH SCH (08:31)
[2017-07-20] MEDS: ACETAMINOPHEN 325 MG TAB PO PRN (08:32)
[2017-07-20] MEDS: MULTIVITAMINS/MINERALS THERAPEUTIC TAB PO SCH (08:32)
[2017-07-20] MEDS: FOLIC ACID 1 MG TAB PO SCH (08:32)
[2017-07-20] MEDS: THIAMINE INJ 100 MG in SODIUM CHLORIDE 0.9% INJ 100 ML IV SCH (08:32)
--- NOTE | 2017-07-20 09:46 | HHI.PR ---
Subjective Remarks Patient says he is feeling all right. Denies any pain. Her shortness of breath. Positive bowel movement. Continue suicidal. She is happy to be going to psychiatry. Objective Vital Signs Date Time Temp Pulse Resp B/P (MAP) Pulse Ox O2 Delivery O2 Flow Rate FiO2 07/20/17 08:11 97.1 75 12 143/79 (100) 99 07/20/17 03:53 97.8 75 18 133/85 (101) 97 07/19/17 23:46 98.4 18 172/96 (121) 99 07/19/17 19:15 98.2 78 18 124/77 (93) 98 07/19/17 16:54 97.5 84 22 167/79 (108) 98 07/19/17 12:36 97.7 85 22 188/97 (127) 99 I/O 07/19/17 07/19/17 07/19/17 07/20/17 07/20/17 07/20/17 07:00 15:00 23:00 07:00 15:00 23:00 Intake Total 1000 ml 100 ml Balance 1000 ml 100 ml Intake IV Total 1000 ml 100 ml Result Diagram: 07/18/17 1605 07/18/17 1605 Objective Remarks GENERAL: Looking, wakes up for exam. She is alert and oriented 3. No tremor. No ataxia. SKIN: Warm and dry. HEAD: Normocephalic. EYES: No scleral icterus. NECK: Supple, trachea midline. No JVD. CARDIOVASCULAR: Regular rate and rhythm without murmurs, gallops, or rubs. RESPIRATORY: Breath sounds equal bilaterally. No accessory muscle use. GASTROINTESTINAL: Abdomen soft, non-tender, nondistended. MUSCULOSKELETAL: No cyanosis, or edema. BACK: Nontender without obvious deformity. No CVA tenderness. A/P Assessment and Plan This is a 67-year-old female with past medical history significant for alcohol abuse, diabetes, depression and bipolar disorder who was discharged earlier today for treatment of ethanol toxicity who presents again to [facility] ED with continued feelings of withdrawal and continued alcohol consumption. Ethanol level on presentation was 74. Tox screen negative. Ammonia 28. Head CT negative. //Alcohol withdrawal History of alcohol abuse Recent admission for ethanol toxicity - Head CT reviewed showing no acute disease. - Urine drug screen unremarkable with salicylates level less than 1.7, acetaminophen level less than 2.0 and alcohol level 74. - Ativan IV given in ED. Continue with CIWA protocol. Monitor for withdrawal activity. Continuous cardiac monitoring. - Ammonia level 28 on presentation. - Ensure hydration, NS @ 100 ml/hr. - Thiamine, folic acid and MVI daily. = We'll discharge home on Librium taper. I'm confident the patient will be able to stop drinking on a Librium taper. Follow with primary care. = 07/20. Patient will be discharged to psychiatry due to suicidal ideation. Appreciate psychiatry assistance. //Type 2 diabetes mellitus, chronic - Diabetic diet - Accu-Checks ACHS. sliding scale insulin, cover as needed. Monitor -Blood sugars are stable here. DVT prophylaxis: SCDs. Discharge Planning Discharge to inpatient psychiatry. Max Leon MD Jul 20, 2017 09:46
[2017-07-20] MEDS: SODIUM CHLOR 0.9% 1000 ML INJ 1,000 ML IV SCH ×2 (10:00)
--- NOTE | 2017-07-20 12:12 | PD.PSY.CON ---
Provisional Diagnosis Admission Date Jul 18, 2017 at 17:23 [place] I. Judgment disorder with depressed mood, history of bipolar depression, alcohol use disorder [place] II. Deferred [place] III. Diabetes History of Present Illness Service Psychiatry Consult Requested By ER team Reason for Consult Suicidal ideation Primary Care Physician Heather Sullivan MD HPI The patient is a 67-year-old woman, domiciled alone in her apartment, , employed, with psychiatric history of depression, bipolar disorder, alcohol use disorder, 4 previous psychiatric hospitalizations, she denies previous suicidal attempts, multiple ER visits due to alcohol use disorder, with past medical history significant for diabetes, who was discharged earlier today for treatment of ethanol toxicity who presents again to [facility] ED with continued feelings of withdrawal and continued alcohol consumption. Ethanol level on presentation was 74. Tox screen negative. Ammonia 28. Head CT negative. Patient was consulted to psychiatry due to his ideation with a plan of overdosing or jumping off a bridge. On psychiatric evaluation patient is nursing depression, says that she doesn't have any reason to live for. 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 She says that she has been drinking alcohol every day and thinking about committing suicide. Patient says that "if I would not be here right now, I would be jumping off a bridge". Patient is irritable, tearful during the evaluation. Denies homicidal ideation, denies visual and auditory hallucinations. Patient is oriented 3, no attention deficit, no fluctuation of consciousness, no withdrawal symptoms reported or observed at this moment. - Review of Systems Except as stated in HPI: all other systems reviewed are Neg Past Family Social History Coded Allergies: codeine (Unverified Allergy, Severe, Hives, 07/18/17) penicillin G (Unverified Allergy, Unknown, 07/18/17) Active Scripts Chlordiazepoxide HCl (Chlordiazepoxide HCl) 10 Mg Capsule, 1 TAB PO DIRECTED for Alcohol Detox for 10 Days, #18 TAB Take THREE Times daily for 3 Days, then TWICE daily for 3 days, then ONCE a day for 3 Days. Prov:Max Leon MD 07/19/17 Multiple Vitamin (Thera/Beta-Carotene) 1 Tab Tab, 1 TAB PO DAILY for Nutritional Supplement, #30 TAB 0 Refills Prov:Reginald Angel MD 07/18/17 Thiamine HCl (Gnp Vitamin B-1) 100 Mg Tab, 100 MG PO DAILY for Nutritional Supplement, #30 TAB 0 Refills Prov:Reginald Angel MD 07/18/17 Folic Acid (Folic Acid) 1 Mg Tablet, 1 MG PO DAILY for Nutritional Supplement, # 30 TAB 0 Refills Prov:Reginald Angel MD 07/18/17 Reported Medications Metformin (Metformin) 1,000 Mg Tab, 1000 MG PO BIDPC for Blood Sugar Management , #60 TAB 0 Refills 07/18/17 Family Psych History She denies family psychiatric history Social History Patient was born in [place], she lives alone in [facility], she used to be employed in the [employer] in the Department of [employer], she is , her highest level of education is high school Patient's Strengths (min. 2) Verbal communication Physical Exam no EPS, no withdrawal symptoms at this moment, no anxiety, no gait disturbance Vital Signs Vital Signs Date Time Temp Pulse Resp B/P (MAP) Pulse Ox O2 Delivery O2 Flow Rate FiO2 07/20/17 08:11 97.1 75 12 143/79 (100) 99 07/19/17 08:00 Room Air Lab Results Reviewed Mental Status Examination Appearance: Appropriate Consciousness: Alert Orientation: x4 Motor Activity: Normal gait Speech: Unremarkable Language: Adequate Fund of Knowledge: Adequate Attention and Concentration: Adequate Memory: Unremarkable Mood: Sad Affect: Irritable, Sad Thought Process & Associations: Intact Thought Content: Appropriate Hallucination Type: None Delusion Type: None Suicidal Ideation: Yes Suicidal Plan: Yes Suicidal Intention: No Homicidal Ideation: No Homicidal Plan: No Homicidal Intention: No Insight: Poor Judgment: Poor Assessment & Plan Problem List: (1) Bipolar 1 disorder ICD Codes: F31.9 - Bipolar I disorder Status: Acute Assessment & Plan: On psychiatric evaluation today the patient reports symptomatology of depression, suicidal ideation with a plan of jumping off a bridge or overdosing. Patient refuses to contract for safety. She has a prolonged history of alcohol use disorder, poor impulse control, no following medical or psychiatric recommendations. Patient has elevated risk of suicidality at this moment, especially with newly added psychosocial stressors in her life such as recently fired from her job, and homelessness. She will be admitted in psychiatry for stabilization and safety. Collateral information is still pending to complete psychiatric assessment. cupola worker intervention for psychosocial assessment, collateral information, individual and group therapies, and also to coordinating a safe discharge planning. Continue CIWA protocol. Extensive support, motivation and psychoeducation provided. Assessment & Plan Estimated LOS: Constantine Reaves MD Jul 20, 2017 12:12
== END 2017-07-20 10:28 ==
LOC: NEPC 15:15 → NEDA 17:23 → NEPFCDU 19:12
PROVIDERS: ADMIT Internal Medicine; ATTEND Internal Medicine
DX: F10.239 Alcohol dependence with withdrawal, unspecified (principal); F31.9 Bipolar disorder, unspecified; E78.5 Hyperlipidemia, unspecified; E11.9 Type 2 diabetes mellitus without complications; F41.9 Anxiety disorder, unspecified; R00.0 Tachycardia, unspecified; I45.10 Unspecified right bundle-branch block; Y90.3 Blood alcohol level of 60-79 mg/100 ml; Z79.84 Long term (current) use of oral hypoglycemic drugs; Z79.899 Other long term (current) drug therapy
CPT/HCPCS: 70450; 80053; 80307; 81001; 82140; 82948; 85025; 93005; 96361; 96365; 96372; 96375; 99285; G0378; J1815; J2060; J3411; J7030

== ENCOUNTER 2017-07-20 10:14 | Inpatient (IN) | payer OTHER, MEDICARE ==
[~2017-07-20] VITALS: Ht 160 cm; Wt 67.2 kg
[~2017-07-20 10:14] MED LIST changes: +CHLO10CA5 PO; +METF1000 PO
[2017-07-20 10:45] VITALS: BP 168/93; PULSE 91; TEMP 97.6; O2SAT 98
[2017-07-20] MEDS ORDERED: LORazepam 2 MG/ML VIAL IM PRN ×2 (12:00→13:00)
[2017-07-20] MEDS ORDERED: LORazepam 1 MG TAB PO PRN (12:00)
[2017-07-20] MEDS ORDERED: FLUMAZENIL 0.5 MG/5 ML VIAL IV PUSH PRN (12:00)
[2017-07-20] MEDS: NICOTINE 21 MG/24 HR PATCH T-DERMAL SCH ×2 (12:00→14:36)
[2017-07-20] MEDS ORDERED: MAGNESIUM HYDROXIDE SUSP 30 ML CUP PO PRN (13:00)
[2017-07-20] MEDS ORDERED: LORazepam 2 MG/ML VIAL IV PUSH PRN ×4 (13:00)
[2017-07-20] MEDS ORDERED: ALUMINUM/MAGNESIUM/SIMETH 30 ML CUP PO PRN (13:00)
[2017-07-20] MEDS ORDERED: LORazepam 2 MG TAB PO PRN (13:00)
[2017-07-20 18:18] VITALS: BP 129/70; PULSE 86; RESP 18; TEMP 98.3
[2017-07-20] MEDS: LORazepam 0.5 MG TAB PO PRN (21:18)
[2017-07-21 06:32] VITALS: BP 146/83; PULSE 66; RESP 17; TEMP 97.6; O2SAT 99
[2017-07-21] MEDS: LORazepam 0.5 MG TAB PO PRN ×2 (08:28→13:21)
[2017-07-21] MEDS: REMOVE OLD PATCH T-DERMAL SCH (09:00)
[2017-07-21] MEDS ORDERED: INFLUENZA VIRUS VACCINE (QUADRIVALENT) 0.5 ML SYR IM ONE (10:00)
[2017-07-21] MEDS: NICOTINE 21 MG/24 HR PATCH T-DERMAL SCH (10:41)
[2017-07-21 10:44] LABS: ANION GAP 7 MEQ/L (5-15); BICARBONATE 28.7 MEQ/L (21.0-32.0); BLOOD UREA NITROGEN 11 MG/DL (7-18); CHLORIDE 101 MEQ/L (98-107); GLOMERULAR FILTRATION RATE 88 ML/MIN (>89); HDL CHOLESTEROL 62.9 MG/DL (40.0-60.0); LDL CHOLESTEROL 129 MG/DL (0-99); POTASSIUM 3.4 MEQ/L (3.5-5.1); SODIUM (NA) 137 MEQ/L (136-145)
--- NOTE | 2017-07-21 14:40 | HHI.HP ---
Provisional Diagnosis Admission Date Jul 20, 2017 at 10:32 [place] I. Adjustment disorder with depressed mood Certification of Person's Competence To Provide Express and Informed Consent I have personally examined Araceli Wright , a person being served at [facility] [[email or web address]] on, Jul 21, 2017 14:37. Express and informed consent means consent voluntarily given in writing, by a competent person, after sufficient explanation and disclosure of the subject matter involved to enable the person to make a knowing and willful decision without any element of force, fraud, deceit, duress, or other form of constraint or coercion. This person is 18 years of age or older, is not now known to be incompetent to consent to treatment with a guardian advocate, and does not have a health care surrogate or proxy currently making medical treatment decisions. I have found this person to be one of the following: [x] Competent to provide express and informed consent, as defined above, for voluntary admission to this facility and is competent to provide express and informed consent for treatment. He/she has the consistent capacity to make well reasoned, willful, and knowing decisions concerning his or her medical or mental health treatment. The person fully and consistently understands the purpose of the admission for examination/placement and is fully capable of personally exercising all rights assured [place] Incompetent to provide express and informed consent to voluntary admission, and this is incompetent to provide express and informed consent to treatment. The person must be transferred to involuntary status and a petition for a guardian advocate filed with the Circuit Court. [] Refusing to provide express and informed consent to voluntary admission but is competent to provide express and informed consent for treatment. The person must be discharged or transferred to involuntary status. Form shall be completed within 24 hours of a person's arrival at the receiving facility and filed in the clinical record of each person: 1. Admitted on a voluntary basis 2. Permitted to provide express and informed consent to his/her own treatment 3. Allowed to transfer from involuntary to voluntary status 4. Prior to permitting a person to consent to his or her own treatment after having been previously found incompetent to consent to treatment. History of Present Illness Capacity: Has Capacity HPI The patient is a 67-year-old woman, domiciled alone in her apartment, , employed, with psychiatric history of depression, bipolar disorder, alcohol use disorder, 4 previous psychiatric hospitalizations, she denies previous suicidal attempts, multiple ER visits due to alcohol use disorder, with past medical history significant for diabetes, who was discharged earlier today for treatment of ethanol toxicity who presents again to [place] ED with continued feelings of withdrawal and continued alcohol consumption. Ethanol level on presentation was 74. Tox screen negative. Ammonia 28. Head CT negative. Patient was consulted to psychiatry due to his ideation with a plan of overdosing or jumping off a bridge. On psychiatric evaluation patient is nursing depression, says that she doesn't have any reason to live for. 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 She says that she has been drinking alcohol every day and thinking about committing suicide. Patient says that "if I would not be here right now, I would be jumping off a bridge". Patient is irritable, tearful during the evaluation. Denies homicidal ideation, denies visual and auditory hallucinations. Patient is oriented 3, no attention deficit, no fluctuation of consciousness, no withdrawal symptoms reported or observed at this moment. Review of Systems Except as stated in HPI: all other systems reviewed are Neg Substance Abuse History Drugs/Alcohol past 12 months Patient reports daily use of alcohol Past Family Social History Coded Allergies: codeine (Unverified Allergy, Severe, Hives, 07/18/17) penicillin G (Unverified Allergy, Unknown, 07/18/17) Active Scripts Chlordiazepoxide HCl (Chlordiazepoxide HCl) 10 Mg Capsule, 1 TAB PO DIRECTED for Alcohol Detox for 10 Days, #18 TAB Take THREE Times daily for 3 Days, then TWICE daily for 3 days, then ONCE a day for 3 Days. Prov:Max Leon MD 07/19/17 Multiple Vitamin (Thera/Beta-Carotene) 1 Tab Tab, 1 TAB PO DAILY for Nutritional Supplement, #30 TAB 0 Refills Prov:Reginald Angel MD 07/18/17 Thiamine HCl (Gnp Vitamin B-1) 100 Mg Tab, 100 MG PO DAILY for Nutritional Supplement, #30 TAB 0 Refills Prov:Reginald Angel MD 07/18/17 Folic Acid (Folic Acid) 1 Mg Tablet, 1 MG PO DAILY for Nutritional Supplement, # 30 TAB 0 Refills Prov:Reginald Angel MD 07/18/17 Reported Medications Metformin (Metformin) 1,000 Mg Tab, 1000 MG PO BIDPC for Blood Sugar Management , #60 TAB 0 Refills 07/18/17 Current Medications Medications (Trade) Dose Ordered Sig/Gia Route Start Time Stop Time Status Last Admin (Ativan) 0.5 mg Q12H PRN PO 07/20/17 13:00 07/21/17 13:21 (Ativan Inj) 0.5 mg Q12H PRN IM 07/20/17 13:00 (Tylenol) 650 mg Q4H PRN PO 07/20/17 12:00 (Milk Of Magnesia Liq) 30 ml DAILY PRN PO 07/20/17 13:00 (Mag-Al Plus Susp Liq) 30 ml Q6H PRN PO 07/20/17 13:00 (Habitrol 21 Mg Patch.24 Hr) 1 patch DAILY T-DERMAL 07/20/17 12:00 (Romazicon Inj) 0.2 mg Q1M PRN IV PUSH 07/20/17 12:00 (Ativan) 1 mg Q4H PRN PO 07/20/17 13:00 (Ativan Inj) 1 mg Q4H PRN IV PUSH 07/20/17 13:00 (Ativan) 2 mg Q2H PRN PO 07/20/17 13:00 (Ativan Inj) 2 mg Q2H PRN IV PUSH 07/20/17 13:00 (Ativan Inj) 2 mg Q1H PRN IV PUSH 07/20/17 13:00 (Ativan Inj) 2 mg Q15M PRN IV PUSH 07/20/17 13:00 Miscellaneous Information 1 DAILY T-DERMAL 07/21/17 09:00 Social History Patient was born in [place], she lives alone in [facility], she used to be employed in the [employer] in the Department of [employer], she is , her highest level of education is high school Physical Exam Vital Signs Vital Signs Date Time Temp Pulse Resp B/P (MAP) Pulse Ox O2 Delivery O2 Flow Rate FiO2 07/21/17 06:32 97.6 66 17 146/83 (104) 99 I/O 07/21/17 07/21/17 07/22/17 08:00 16:00 00:00 Intake Total 0 ml 420 ml Balance 0 ml 420 ml Lab Results Test 07/21/17 07:43 Blood Urea Nitrogen 11 MG/DL Creatinine 0.67 MG/DL Random Glucose 141 MG/DL Calcium Level 9.3 MG/DL Sodium Level 137 MEQ/L Potassium Level 3.4 MEQ/L Chloride Level 101 MEQ/L Carbon Dioxide Level 28.7 MEQ/L Anion Gap 7 MEQ/L Estimat Glomerular Filtration Rate 88 ML/MIN Triglycerides Level 181 MG/DL Cholesterol Level 228 MG/DL LDL Cholesterol 129 MG/DL HDL Cholesterol 62.9 MG/DL Cholesterol/HDL Ratio 3.62 RATIO Mental Status Examination Appearance: Appropriate Consciousness: Alert Orientation: x4 Motor Activity: Normal gait Speech: Unremarkable Language: Adequate Fund of Knowledge: Adequate Attention and Concentration: Adequate Memory: Unremarkable Mood: Appropriate, Sad Affect: Irritable, Sad Thought Process & Associations: Intact Thought Content: Appropriate Hallucination Type: None Delusion Type: None Suicidal Ideation: No Suicidal Plan: No Suicidal Intention: No Homicidal Ideation: No Homicidal Plan: No Homicidal Intention: No Insight: Adequate Judgment: Adequate Assessment & Plan Problem List: (1) Bipolar 1 disorder ICD Codes: F31.9 - Bipolar I disorder Status: Acute Assessment & Plan: On psychiatric evaluation today the patient reports symptomatology of depression, suicidal ideation with a plan of jumping off a bridge or overdosing. Patient refuses to contract for safety. She has a prolonged history of alcohol use disorder, poor impulse control, no following medical or psychiatric recommendations. Patient has elevated risk of suicidality at this moment, especially with newly added psychosocial stressors in her life such as recently fired from her job, and homelessness. She will be admitted in psychiatry for stabilization and safety. Collateral information is still pending to complete psychiatric assessment. toll test worker intervention for psychosocial assessment, collateral information, individual and group therapies, and also to coordinating a safe discharge planning. Continue CIWA protocol. Extensive support, motivation and psychoeducation provided. We'll start Celexa 10 mg for depression. Assessment & Plan Estimated LOS: Constantine Reaves MD Jul 21, 2017 14:40
[2017-07-21] MEDS ORDERED: PILL SPLITTER OTHER PRN (15:00)
[2017-07-21 15:05] LABS: HEMOGLOBIN A1a 1.2 %; HEMOGLOBIN A1b 2.1 %; HEMOGLOBIN Ao 83.4 %; HEMOGLOBIN LA1C 2.4 %; HEMOGLOBIN P3 3.9 %
[2017-07-21 20:14] VITALS: BP 129/63; PULSE 87; RESP 17; TEMP 98.8; O2SAT 97
[2017-07-22] MEDS: LORazepam 0.5 MG TAB PO PRN ×2 (02:18→11:37)
[2017-07-22 06:38] VITALS: BP 138/79; PULSE 63; RESP 16; TEMP 96.8; O2SAT 97
[2017-07-22] MEDS: REMOVE OLD PATCH T-DERMAL SCH (09:00)
[2017-07-22] MEDS: CITALOPRAM HYDROBROMIDE 20 MG TAB PO SCH (09:00)
--- NOTE | 2017-07-22 11:58 | HHI.PYPN ---
Subjective Remarks Pt seen and discussed with staff. Last CIWA was 3. She is mildly anxious but cooperative with care. She is vague about reasons for admission, stating that she just wasn't feeling good and "had some problems". She reports that she has been drinking heavily since discharge and having significant suicidal ideations. She states on day of admission she wanted to kill herself. She continues to endorse suicidal ideations. She is tolerating citalopram without side effects. No psychois. No hx of gillian/hypomania sxs. Mental Status Examination Appearance: Appropriate Consciousness: Alert Orientation: x4 Motor Activity: Normal gait Speech: Unremarkable Language: Adequate Fund of Knowledge: Adequate Attention and Concentration: Adequate Memory: Unremarkable Mood: Sad Affect: Sad, Flat Thought Process & Associations: Intact Thought Content: Appropriate Hallucination Type: None Delusion Type: None Suicidal Ideation: Yes Suicidal Plan: No Suicidal Intention: No Homicidal Ideation: No Homicidal Plan: No Homicidal Intention: No Insight: Adequate Judgment: Adequate Results Vitals/IOs Vital Signs Date Time Temp Pulse Resp B/P (MAP) Pulse Ox O2 Delivery O2 Flow Rate FiO2 07/22/17 06:38 96.8 63 16 138/79 (98) 97 Intake and Output 07/22/17 07/22/17 07/23/17 08:00 16:00 00:00 Intake Total 480 ml Balance 480 ml Assessment & Plan Problem List: (1) Major depression, recurrent ICD Codes: F33.9 - Major depressive disorder, recurrent, unspecified Status: Acute Assessment & Plan Continue current tx plan Estimated LOS: days Justification for Cont. Inpt. impairments in safety Problem Qualifiers (1) Major depression, recurrent: Qualified Codes: F33.2 - Major depressive disorder, recurrent severe without psychotic features Megan Hwang MD Jul 22, 2017 11:58
[2017-07-22 16:00] VITALS: BP 118/62; PULSE 84; RESP 18; TEMP 97.8; O2SAT 100
[2017-07-22] MEDS: ACETAMINOPHEN 325 MG TAB PO PRN (19:29)
[2017-07-23] MEDS: LORazepam 0.5 MG TAB PO PRN (01:07)
[2017-07-23 06:00] VITALS: BP 133/74; PULSE 72; RESP 16; TEMP 97.4; O2SAT 97
[2017-07-23] MEDS: CITALOPRAM HYDROBROMIDE 20 MG TAB PO SCH (08:47)
[2017-07-23] MEDS: REMOVE OLD PATCH T-DERMAL SCH (09:00)
[2017-07-23] MEDS: NICOTINE 21 MG/24 HR PATCH T-DERMAL SCH (09:00)
--- NOTE | 2017-07-23 11:54 | HHI.PYPN ---
Subjective Remarks Pt seen and discussed with staff. CIWA score this morning was 8 and pt was given dose of ativan. She has spent most of morning in bed and did not eat breakfast but did eat lunch. She remains depressed and dysphoric, but reports some improvement in mood. She denied SI/HI this morning. Mental Status Examination Appearance: Appropriate Consciousness: Alert Orientation: x4 Motor Activity: Normal gait Speech: Unremarkable Language: Adequate Fund of Knowledge: Adequate Attention and Concentration: Adequate Memory: Unremarkable Mood: Sad Affect: Sad, Flat Thought Process & Associations: Intact Thought Content: Appropriate Hallucination Type: None Delusion Type: None Suicidal Ideation: No Suicidal Plan: No Suicidal Intention: No Homicidal Ideation: No Homicidal Plan: No Homicidal Intention: No Insight: Adequate Judgment: Adequate Results Vitals/IOs Vital Signs Date Time Temp Pulse Resp B/P (MAP) Pulse Ox O2 Delivery O2 Flow Rate FiO2 07/23/17 06:00 97.4 72 16 133/74 (93) 97 Assessment & Plan Problem List: (1) Major depression, recurrent ICD Codes: F33.9 - Major depressive disorder, recurrent, unspecified Status: Acute Assessment & Plan Continue current tx plan. Estimated LOS: days Justification for Cont. Inpt. monitoring for safety Problem Qualifiers (1) Major depression, recurrent: Qualified Codes: F33.2 - Major depressive disorder, recurrent severe without psychotic features Megan Hwang MD Jul 23, 2017 11:53
[2017-07-23] MEDS: LORazepam 1 MG TAB PO PRN ×2 (15:10→21:30)
[2017-07-23 17:29] VITALS: BP 168/90; PULSE 80; RESP 18; TEMP 97.7
[2017-07-24 06:09] VITALS: BP_SYST 66; PULSE 75; RESP 15; TEMP 97.9; O2SAT 96
[2017-07-24] MEDS: CITALOPRAM HYDROBROMIDE 20 MG TAB PO SCH (08:40)
[2017-07-24] MEDS: NICOTINE 21 MG/24 HR PATCH T-DERMAL SCH (08:42)
[2017-07-24] MEDS: REMOVE OLD PATCH T-DERMAL SCH (08:42)
--- NOTE | 2017-07-24 14:29 | HHI.PYPN ---
Subjective Remarks Patient was seen today for psychiatric reevaluation, patient was found sleeping , easily arousable, he reports continue symptomatology of depression, depressed mood, low motivation, low energy to get out of the bed, patient is no enjoying activities in the unit, he is mostly isolated in her room. Compliant with her medications, no significant side effects. Patient is oriented 3, no attention deficit, no fluctuation of consciousness. No agitation or aggressive behavior reported. Patient denies suicidal ideation, but she does report frequent suicidal thoughts. Review of Systems Except as stated in HPI: all other systems reviewed are Neg Mental Status Examination Appearance: Appropriate Consciousness: Alert Orientation: x4 Motor Activity: Normal gait Speech: Unremarkable Language: Adequate Fund of Knowledge: Adequate Attention and Concentration: Adequate Memory: Unremarkable Mood: Sad Affect: Sad, Flat Thought Process & Associations: Intact Thought Content: Appropriate Hallucination Type: None Delusion Type: None Suicidal Ideation: No Suicidal Plan: No Suicidal Intention: No Homicidal Ideation: No Homicidal Plan: No Homicidal Intention: No Insight: Adequate Judgment: Adequate Results Vitals/IOs Vital Signs Date Time Temp Pulse Resp B/P (MAP) Pulse Ox O2 Delivery O2 Flow Rate FiO2 07/24/17 06:09 97.9 75 15 66/ 96 Intake and Output 07/24/17 07/24/17 07/25/17 08:00 16:00 00:00 Intake Total 360 ml 240 ml Balance 360 ml 240 ml Assessment & Plan Problem List: (1) Major depression, recurrent ICD Codes: F33.9 - Major depressive disorder, recurrent, unspecified Status: Acute Assessment & Plan: Patient continue to endorse to symptoms of severe depression , denies suicidal ideation at this moment, contracted for safety. Will increase citalopram to 20 mg daily. Assessment & Plan Estimated LOS: days Justification for Cont. Inpt. Patient has an elevated risk of danger to self at a lower level of care. Problem Qualifiers (1) Major depression, recurrent: Qualified Codes: F33.2 - Major depressive disorder, recurrent severe without psychotic features Constantine Amaro MD Jul 24, 2017 14:29
[2017-07-24] MEDS: ACETAMINOPHEN 325 MG TAB PO PRN (16:45)
[2017-07-24] MEDS: LORazepam 0.5 MG TAB PO PRN (16:45)
[2017-07-24 18:21] VITALS: BP 122/67; PULSE 71; RESP 16; TEMP 97.9; O2SAT 71
[2017-07-24 21:40] VITALS: O2SAT 97
[2017-07-25 06:26] VITALS: BP 148/78; PULSE 74; RESP 17; TEMP 97.9; O2SAT 98
[2017-07-25] MEDS: CITALOPRAM HYDROBROMIDE 20 MG TAB PO SCH (08:23)
[2017-07-25] MEDS: NICOTINE 21 MG/24 HR PATCH T-DERMAL SCH (08:23)
[2017-07-25] MEDS: REMOVE OLD PATCH T-DERMAL SCH (08:23)
[2017-07-25] MEDS ORDERED: CELE20TA PO (11:28)
--- NOTE | 2017-07-25 11:32 | HHI.DS ---
Psychiatry Discharge Summary Inpatient Psychiatric care?: Yes Advance Directive: No Reason Not Provided: [facility] Mental Health AdvanceDirective: No Health Care Proxy: Yes Admission Admission Date Jul 20, 2017 at 10:32 Admission Diagnosis: (1) Major depression, recurrent ICD Code: F33.9 - Major depressive disorder, recurrent, unspecified Brief History The patient is a 67-year-old woman, domiciled alone in her apartment, , employed, with psychiatric history of depression, bipolar disorder, alcohol use disorder, 4 previous psychiatric hospitalizations, she denies previous suicidal attempts, multiple ER visits due to alcohol use disorder, with past medical history significant for diabetes, who was discharged earlier today for treatment of ethanol toxicity who presents again to [place] [facility] with continued feelings of withdrawal and continued alcohol consumption. Ethanol level on presentation was 74. Tox screen negative. Ammonia 28. Head CT negative. Patient was consulted to psychiatry due to his ideation with a plan of overdosing or jumping off a bridge. On psychiatric evaluation patient is nursing depression, says that she doesn't have any reason to live for. 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 She says that she has been drinking alcohol every day and thinking about committing suicide. Patient says that "if I would not be here right now, I would be jumping off a bridge". Patient is irritable, tearful during the evaluation. Denies homicidal ideation, denies visual and auditory hallucinations. Patient is oriented 3, no attention deficit, no fluctuation of consciousness, no withdrawal symptoms reported or observed at this moment. Tobacco Use In Past 30 Days: No Tobacco Past 30 Days Alcohol Use: 2-3 Times Per Week Hospital Course Patient was admitted due to depressive symptoms in the context of psychosocial stressors and increased alcohol intake. Psychosocial a psychiatric assessment performed. Safety measures were taken. Patient was started in CIWA protocol and Celexa for depression. Medications were increased as necessary. Individual and group therapies were also started. Patient showed good response to psychotropic regimen and therapies. Patient was calm, cooperative, no agitation or aggressive behavior reported during her hospitalization. Patient was compliant with her psychotropics. At the moment of discharge patient denies depressive symptoms, denies anxiety, denies gillian and psychosis. Results Blood Pressure 148 / 78 Vital Signs Date Time Temp Pulse Resp B/P (MAP) Pulse Ox O2 Delivery O2 Flow Rate FiO2 07/25/17 06:26 97.9 74 17 148/78 (101) 98 Laboratory Results Test 07/21/17 07:43 Cholesterol Level 228 MG/DL (120-200) HDL Cholesterol 62.9 MG/DL (40.0-60.0) Hemoglobin A1c 6.6 % (4.3-6.0) LDL Cholesterol 129 MG/DL (0-99) Triglycerides Level 181 MG/DL (42-150) Summary of Procedures none Pending results at discharge: No Medications # of Antipsychotic meds at D/C: 0 Approp Antipsych med options 1 - Minimum of three failed multiple trials of monotherapy. 2 - Documented plan to taper to monotherapy due to previous use of multiple meds OR cross-taper in progress at D/C. 3 - Documentation of augmentation of Clozapine. 4 - Justification other than those listed in allowable values 1-3, document here : Discharge Discharge Date: Jul 25, 2017 Discharge Diagnosis: (1) Major depression, recurrent Diagnosis: Principal ICD Code: F33.9 - Major depressive disorder, recurrent, unspecified Status: Acute Pt Condition on Discharge: Stable Discharge Disposition: Discharge Home Discharge Instructions Diet Instructions: As Tolerated, No Restrictions Activities you can perform: Weight Bearing as Ghada Scheduled Appointment: Discharge Time > 30 minutes Mental Status Examination Appearance: Appropriate Consciousness: Alert Orientation: x4 Motor Activity: Normal gait Speech: Unremarkable Language: Adequate Fund of Knowledge: Adequate Attention and Concentration: Adequate Memory: Unremarkable Mood: Sad Affect: Sad, Flat Thought Process & Associations: Intact Thought Content: Appropriate Hallucination Type: None Delusion Type: None Suicidal Ideation: No Suicidal Plan: No Suicidal Intention: No Homicidal Ideation: No Homicidal Plan: No Homicidal Intention: No Insight: Adequate Judgment: Adequate Discharge/Advance Care Plan Health Problems: (1) Major depression, recurrent Goals to promote your health * To prevent worsening of your condition and complications * To maintain your health at the optimal level Directions to meet your goals Take your medications as prescribed Follow your dietary instruction Follow activity as directed Keep your appointments as scheduled Take your immunizations and boosters as scheduled If your symptoms worsen call your PCP, if no PCP go to Urgent Care Center or Emergency Room For 24/04 questions related to your inpatient stay or results of tests pending at discharge, please contact Dr. Constantine Amaro at Smoking is Dangerous to Your Health. Avoid second hand smoking Problem Qualifiers (1) Major depression, recurrent: Qualified Codes: F33.2 - Major depressive disorder, recurrent severe without psychotic features Constantine Amaro MD Jul 25, 2017 11:32
[2017-07-25] MEDS: LORazepam 0.5 MG TAB PO PRN (12:57)
--- NOTE | 2017-07-25 13:07 | PD.TTN ---
Patient Problems 1. Discharge planning 2. Medication compliance 3. Knowledge deficit 4. Lack of coping skills Progress Toward Goals Provider Present: Dr. Mason Amaro Provider Input: Patient is ready for discharge today Nurse(s) Input: stable and med compliant Psychiatric Counselors Present: Mabel Esquivel LCSW Psych Therapist Input: patient denies S/I and is ready for discharge and wants to find out where her car is impounded she is set up with [facility] Care Coordination and given substance abuse resources Mabel Esquivel LCSW Jul 25, 2017 13:07
== END 2017-07-25 16:45 | disposition home or self-care (01) | DRG 885 ==
LOC: H250 10:32
PROVIDERS: ADMIT Psychiatry & Neurology Psychiatry; ATTEND Psychiatry & Neurology Psychiatry
DX: F33.2 Major depressive disorder, recurrent severe without psychotic features (principal); R45.851 Suicidal ideations; E11.9 Type 2 diabetes mellitus without complications; F10.10 Alcohol abuse, uncomplicated; Z79.84 Long term (current) use of oral hypoglycemic drugs; Z88.5 Allergy status to narcotic agent; Z88.0 Allergy status to penicillin
CPT/HCPCS: 80048; 80061; 82948; 83036

== ENCOUNTER 2017-09-06 15:55 | Observation (INO) | payer OTHER ==
[~2017-09-06] VITALS: Ht 165.1 cm; Wt 79.5 kg
[~2017-09-06 15:55] MED LIST changes: +CELE20TA PO; -GNP100TA3 PO; +THIA100 PO
[2017-09-06] MEDS ORDERED: SODIUM CHLOR 0.9% 1000 ML INJ 1,000 ML IV ONE ×2 (16:55→19:45)
[2017-09-06] MEDS ORDERED: SODIUM CHLORIDE 0.9% FLUSH 10 ML FLUSH IVF PRN (17:00)
--- NOTE | 2017-09-06 17:04 | PD ---
HPI Chief Complaint: overdose Time Seen by Provider: 16:51 Travel History International Travel<30 days: No Contact w/Intl Traveler<30days: No History of Present Illness HPI 67 y/o female presents with drinking a half bottle of rubbing alcohol in an attempt to end her life. She states that she did this about 2:30 in the afternoon. Staff states that the ambulance team said it was sometime this morning. Patient lives at home by herself. She presents under Lees act. She is off all of her medications including her bipolar and diabetes medications. Patient is a poor historian. PFSH Past Medical History Hx Anticoagulant Therapy: No Arthritis: Yes Asthma: No Autoimmune Disease: No Blood Disorders: No Bipolar Disorder: Yes Anxiety: No Depression: No Heart Rhythm Problems: No Cancer: No Cardiovascular Problems: No High Cholesterol: Yes Chemotherapy: No Chest Pain: No Congestive Heart Failure: No COPD: No Cerebrovascular Accident: No Diabetes: Yes Diminished Hearing: No Endocrine: Yes GERD: No Genitourinary: No Headaches: Yes (Since fall) Hepatitis: No Hiatal Hernia: No Hypertension: Yes Immune Disorder: No Implanted Vascular Access Dvce: Yes Kidney Stones: No Musculoskeletal: No Neurologic: No Psychiatric: Yes (Depression and bipolar) Reproductive: No Respiratory: No Migraines: No Pneumonia: Yes Radiation Therapy: No Renal Failure: No Seizures: No Sickle Cell Disease: No Sleep Apnea: No Thyroid Disease: No Triglycerides - High: Yes Ulcer: No PNEUMOCCOCAL Vaccine (Year): 2009 Menopausal: Yes Past Surgical History Abdominal Surgery: No AICD: No Arteriovenous Shunt: No Cardiac Surgery: No Ear Surgery: No Endocrine Surgery: No Eye Surgery: No Genitourinary Surgery: No Gynecologic Surgery: No Hysterectomy: Yes Insulin Pump: No Joint Replacement: Yes (LEFT HIP AND KNEE) Oral Surgery: No Pacemaker: No Thoracic Surgery: No Social History Alcohol Use: Yes (OCC, HX ETOH ABUSE) Tobacco Use: No Substance Use: No Allergies-Medications (Allergen,Severity, Reaction): Coded Allergies: codeine (Verified Allergy, Severe, Hives, 09/06/17) penicillin G (Verified Allergy, Unknown, 09/06/17) Reported Meds & Prescriptions Reported Meds & Active Scripts Active No Active Prescriptions or Reported Medications Review of Systems Except as stated in HPI: all other systems reviewed are Neg Physical Exam Narrative GENERAL: Well-nourished, well-developed patient. SKIN: Warm and dry. HEAD: Normocephalic and periorbital ecchymosis noted on the left EYES: No injection or drainage. ENT: No nasal drainage noted. NECK: Supple, trachea midline. CARDIOVASCULAR: Regular rate and rhythm RESPIRATORY: No increased effort. No accessory muscle use. GASTROINTESTINAL: Abdomen soft, non-tender, nondistended. EXTREMITIES: No edema. NEUROLOGICAL: Awake. Moves all extremities and sensory grossly within normal limits. Slurred slow speech. Data Data Last Documented VS Vital Signs Date Time Temp Pulse Resp B/P (MAP) Pulse Ox O2 Delivery O2 Flow Rate FiO2 09/06/17 18:17 108 16 99 Room Air 09/06/17 17:08 98.0 Orders Orders Electrocardiogram (09/06/17 16:55) Complete Blood Count With Diff (09/06/17 16:55) Comprehensive Metabolic Panel (09/06/17 16:55) Prothrombin Time / Inr (Pt) (09/06/17 16:55) Act Partial Throm Time (Ptt) (09/06/17 16:55) Osmolality,Serum (09/06/17 16:55) Osmolality, Urine (09/06/17 16:55) Urinalysis - C+S If Indicated (09/06/17 16:55) Ct Brain W/O Iv Contrast(Rout) (09/06/17 16:55) Blood Glucose (09/06/17 16:55) Iv Access Insert/Monitor (09/06/17 16:55) Ecg Monitoring (09/06/17 16:55) Oximetry (09/06/17 16:55) Sodium Chloride 0.9% Flush (Ns Flush) (09/06/17 17:00) Sodium Chlor 0.9% 1000 Ml Inj (Ns 1000 M (09/06/17 16:55) Call Poison Control (09/06/17 16:55) Drug Screen, Random Urine (09/06/17 16:55) Alcohol (Ethanol) (09/06/17 16:55) Salicylates (Aspirin) (09/06/17 16:55) Tylenol (Acetaminophen) (09/06/17 16:55) Beta Hydroxybutyrate (Acetone) (09/06/17 16:55) NPO (09/06/17 16:55) Blood Gas Venous (Vbg) (09/06/17 17:00) Chest, Single Ap (09/06/17 ) Lorazepam Inj (Ativan Inj) (09/06/17 18:30) Ct Facial Bones W/O Iv Cont (09/06/17 ) Labs Laboratory Tests Test 09/06/17 17:47 White Blood Count 19.3 TH/MM3 Red Blood Count 4.11 MIL/MM3 Hemoglobin 13.3 GM/DL Hematocrit 39.0 % Mean Corpuscular Volume 94.8 FL Mean Corpuscular Hemoglobin 32.3 PG Mean Corpuscular Hemoglobin Concent 34.1 % Red Cell Distribution Width 14.7 % Platelet Count 349 TH/MM3 Mean Platelet Volume 7.6 FL Neutrophils (%) (Auto) 91.3 % Lymphocytes (%) (Auto) 4.2 % Monocytes (%) (Auto) 4.0 % Eosinophils (%) (Auto) 0.1 % Basophils (%) (Auto) 0.4 % Neutrophils # (Auto) 17.7 TH/MM3 Lymphocytes # (Auto) 0.8 TH/MM3 Monocytes # (Auto) 0.8 TH/MM3 Eosinophils # (Auto) 0.0 TH/MM3 Basophils # (Auto) 0.1 TH/MM3 CBC Comment DIFF FINAL Differential Comment Prothrombin Time 10.6 SEC Prothromb Time International Ratio 1.0 RATIO Activated Partial Thromboplast Time 18.3 SEC Serum Osmolality 387 MOSM/KG Salicylates Level 3.2 MG/DL [facility] Medical Decision Making Medical Screen Exam Complete: Yes Emergency Medical Condition: Yes Medical Record Reviewed: Yes (past history confirmed) Differential Diagnosis Intoxication, coingestion, isopropyl alcohol, DKA Narrative Course Will check lab work and CT face and brain and monitor Physician Communication Physician Communication oncoming physician to follow labs, ct and reevaluate Scripts No Active Prescriptions or Reported Meds Shilpa Ann MD Sep 06, 2017 17:04
[2017-09-06 17:08] VITALS: BP 151/74; PULSE 101; RESP 16; TEMP 98; O2SAT 100
[2017-09-06 17:12] VITALS: BP 151/74; PULSE 110; RESP 15; O2SAT 99
[2017-09-06 18:14] LABS: AUTOMATED NEUTROPHIL # 17.7 TH/MM3 (1.8-7.7); BASOPHIL # 0.1 TH/MM3 (0-0.2); BASOPHIL % 0.4 % (0.0-2.0); EOSINOPHIL % 0.1 % (0.0-4.0); HEMO FLAGS DIFF FINAL; LYMPH % 4.2 % (9.0-44.0); LYMPHOCYTE # 0.8 TH/MM3 (1.0-4.8); MEAN CELL VOLUME 94.8 FL (80.0-100.0); MEAN CORPUSCULAR HEMOGLOBIN 32.3 PG (27.0-34.0); MEAN CORPUSCULAR HGB CONC 34.1 % (32.0-36.0); NEUT % 91.3 % (16.0-70.0); PLATELET COUNT 349 TH/MM3 (150-450); RED BLOOD COUNT 4.11 MIL/MM3 (4.00-5.30); RED CELL DISTRIBUTION WIDTH 14.7 % (11.6-17.2); WHITE BLOOD COUNT 19.3 TH/MM3 (4.0-11.0)
[2017-09-06 18:17] VITALS: PULSE 108; RESP 16; O2SAT 99
[2017-09-06] MEDS ORDERED: LORazepam 2 MG/ML VIAL IV PUSH ONE (18:30)
[2017-09-06 18:46] LABS: APTT (PATIENT) 18.3 SEC (24.3-30.1); PROTHROMBIN TIME - PATIENT 10.6 SEC (9.8-11.6)
--- NOTE | 2017-09-06 19:21 | RADRPT ---
EXAM DATE/TIME: 09/06/2017 19:00 [facility] COMPARISON: CT BRAIN W/O CONTRAST, July 18, 2017, 16:13. INDICATIONS : Trauma. Fall with altered mental status. RADIATION DOSE: 45.79 CTDIvol (mGy) MEDICAL HISTORY : Diabetes mellitus type 2. SURGICAL HISTORY : Hysterectomy. ENCOUNTER: Initial ACUITY: 1 day PAIN SCALE: 0/10 LOCATION: cranial TECHNIQUE: Multiple contiguous axial images were obtained of the head. Using automated exposure control and adj ustment of the mA and/or kV according to patient size, radiation dose was kept as low as reasonably a chievable to obtain optimal diagnostic quality images. DICOM format image data is available electro nically for review and comparison. FINDINGS: CEREBRUM: The ventricles are normal for age. No evidence of midline shift, mass lesion, hemorrhage or acute in farction. No extra-axial fluid collections are seen. Mild periventricular and subcortical white terri er small vessel ischemic changes are noted bilaterally. POSTERIOR FOSSA: The cerebellum and brainstem are intact. The 4th ventricle is midline. The cerebellopontine angle i s unremarkable. EXTRACRANIAL: The visualized portion of the orbits is intact. SKULL: The calvaria is intact. No evidence of skull fracture. CONCLUSION: 1. Mild periventricular and subcortical white matter small vessel ischemic changes bilaterally. 2. No acute infarct, acute hemorrhage, mass effect or extra-axial fluid collections. Mark Saucedo MD on September 06, 2017 at 19:18 Board Certified Radiologist. This report was verified electronically.
--- NOTE | 2017-09-06 19:24 | RADRPT ---
EXAM DATE/TIME: 09/06/2017 19:01 [facility] COMPARISON: CT BRAIN W/O CONTRAST, March 14, 2016, 11:26. INDICATIONS : Trauma. Fall with left eye contusion. RADIATION DOSE: 35.69 CTDIvol (mGy) MEDICAL HISTORY : Diabetes mellitus type 2. SURGICAL HISTORY : Hysterectomy. ENCOUNTER: Initial ACUITY: 1 day PAIN SCORE: 0/10 LOCATION: Left facial TECHNIQUE: Volumetric scanning of the facial bones was performed. Using automated exposure control and adjustme nt of the mA and/or kV according to patient size, radiation dose was kept as low as reasonably achiev able to obtain optimal diagnostic quality images. DICOM format image data is available electronicall y for review and comparison. FINDINGS: ORBITS: The orbital and infraorbital osseous structures are intact. The retroconal structures have a normal configuration. No radiopaque foreign bodies are seen. NASAL BONE: The nasal bone and maxillary spine are intact ZYGOMATIC ARCHES: Symmetric without evidence of fracture. SINUSES: The maxillary, ethmoid and frontal sinuses are intact. Minimal mucosal thickening is noted within th e left sphenoid sinus. No air-fluid levels seen. NASAL CAVITY: Nasal septal deviation to the right is noted. The lacrimal ducts are intact. SOFT TISSUES: No radiopaque foreign bodies seen. No soft-tissue swelling is seen. INTRACRANIAL: No intracranial air seen. CRIBIFORM PLATE: Grossly intact. CONCLUSION: 1. No facial bone fracture identified. 2. Minimal mucosal thickening within the left sphenoid sinus. 3. Nasal septal deviation to the right. Mark Saucedo MD on September 06, 2017 at 19:20 Board Certified Radiologist. This report was verified electronically.
[2017-09-06 19:25] LABS: ACETAMINOPHEN LESS THAN 2.0 MCG/ML (10.0-30.0); ALKALINE PHOSPHATASE 61 U/L (45-117); ALT (GPT) 32 U/L (10-53); ANION GAP 20 MEQ/L (5-15); AST (GOT) 49 U/L (15-37); BETA-HYDROXYBUTYRATE 8.16 MMOL/L (0.00-0.39); BICARBONATE 15.4 MEQ/L (21.0-32.0); BLOOD UREA NITROGEN 45 MG/DL (7-18); CHLORIDE 103 MEQ/L (98-107); GLOMERULAR FILTRATION RATE 17 ML/MIN (>89); POTASSIUM 3.8 MEQ/L (3.5-5.1); SODIUM (NA) 138 MEQ/L (136-145); TOTAL BILIRUBIN ADULT 0.4 MG/DL (0.2-1.0)
[2017-09-06 19:26] LABS: ALCOHOL LESS THAN 3 MG/DL (0-5)
--- NOTE | 2017-09-06 19:41 | RADRPT ---
EXAM DATE/TIME: 09/06/2017 18:41 [facility] COMPARISON: CHEST SINGLE AP, July 15, 2017, 11:13. INDICATIONS : Chest palpitations. MEDICAL HISTORY : Hypertension. Diabetes mellitus type 2. SURGICAL HISTORY : Hysterectomy. ENCOUNTER: Initial ACUITY: 1 day PAIN SCORE: 2/10 LOCATION: Bilateral chest FINDINGS: A single view of the chest demonstrates the lungs to be symmetrically aerated without evidence of mas s, infiltrate or effusion. The cardiomediastinal contours are unremarkable. Osseous structures are intact. CONCLUSION: No acute disease. Mark Saucedo MD on September 06, 2017 at 19:39 Board Certified Radiologist. This report was verified electronically.
[2017-09-06] MEDS ORDERED: FAMOTIDINE 20 MG/2 ML VIAL IV PUSH SCH (19:45)
[2017-09-06] MEDS ORDERED: LORazepam 2 MG/ML VIAL IM ONE (20:15)
[2017-09-06] MEDS ORDERED: SODIUM CHLORIDE 0.9% FLUSH 10 ML FLUSH IV FLUSH PRN (21:15)
[2017-09-06] MEDS ORDERED: NALOXONE HCL 0.4 MG/ML AMP IV PUSH PRN (21:15)
[2017-09-06] MEDS: SODIUM CHLOR 0.9% 1000 ML INJ 1,000 ML IV SCH (22:23)
[2017-09-06 22:45] LABS: BACTERIA, URINE RARE /hpf; BLOOD, URINE SMALL (NEG); COMMENT (UR) CULT NOT INDICATED; CULTURE IF INDICATED CULT NOT INDICATED; GLUCOSE,URINE 1000 mg/dL (NEG); KETONE, URINE 150 mg/dL (NEG); MUCUS URINE FEW /lpf (OCC); NITRITE,URINE NEG (NEG); SQUAMOUS EPITHELIAL CELL URINE <1 /hpf (0-5); URINE COLOR LIGHT-YELLOW (YELLW/STRAW)
[2017-09-06 23:37] LABS: BLOOD GAS VENOUS BASE EXCESS -10.1 mmol/L (-2-2); BLOOD GAS VENOUS HCO3 14 mmol/L (22-26); BLOOD GAS VENOUS O2 CONTENT 14.9 Vol % (9.0-17.0); BLOOD GAS VENOUS O2 HGB SAT 89 % (70-76); BLOOD GAS VENOUS PCO2 27 mmHg (44-48); BLOOD GAS VENOUS PO2 70 mmHg (35-40); BLOOD GAS VENOUS pH 7.35 (7.360-7.400)
[2017-09-06 23:39] LABS: DRAW SITE IV; FIO2 21 %; OXYGEN DEVICE ROOM AIR; STAT YES
[2017-09-06 23:47] LABS: CRITICAL VALUE YES
[2017-09-07 00:17] VITALS: BP 155/75; PULSE 110; RESP 18; O2SAT 100
[2017-09-07 04:15] VITALS: BP 160/78; PULSE 109; RESP 18; TEMP 97.7; O2SAT 100
[2017-09-07 04:28] LABS: BICARBONATE 16.3 MEQ/L (21.0-32.0); POTASSIUM 3.9 MEQ/L (3.5-5.1)
[2017-09-07] MEDS ORDERED: GLUCAGON 1 MG/ML VIAL OTHER PRN (04:45)
[2017-09-07] MEDS ORDERED: DEXTROSE 50% IN WATER 50 ML VIAL(D50) IV PUSH PRN (04:45)
[2017-09-07 05:03] VITALS: PULSE 107
[2017-09-07 05:14] LABS: TRANSFERRIN IRON PROFILE 230 MG/DL (200-360)
[2017-09-07 07:37] LABS: BASOPHIL % 0.1 % (0.0-2.0); HEMATOCRIT 34.1 % (35.0-46.0); HEMO FLAGS DIFF FINAL; LYMPH % 6.4 % (9.0-44.0); LYMPHOCYTE # 0.9 TH/MM3 (1.0-4.8); MEAN CELL VOLUME 95.3 FL (80.0-100.0); MEAN CORPUSCULAR HGB CONC 33.6 % (32.0-36.0); MONO % 7.4 % (0.0-8.0); NEUT % 86.1 % (16.0-70.0); PLATELET COUNT 230 TH/MM3 (150-450); RED BLOOD COUNT 3.58 MIL/MM3 (4.00-5.30); RED CELL DISTRIBUTION WIDTH 14.6 % (11.6-17.2); WHITE BLOOD COUNT 13.9 TH/MM3 (4.0-11.0)
[2017-09-07 07:44] VITALS: BP 148/77; PULSE 109; RESP 20; TEMP 97.8; O2SAT 100
[2017-09-07] MEDS: SODIUM CHLOR 0.9% 1000 ML INJ 1,000 ML IV SCH (07:54)
[2017-09-07 07:57] LABS: BICARBONATE 16.8 MEQ/L (21.0-32.0); POTASSIUM 3.8 MEQ/L (3.5-5.1)
[2017-09-07] MEDS ORDERED: INSULIN ASPART SUPPLEMENTAL SCALE SQ SCH (08:00)
[2017-09-07] MEDS ORDERED: FLUMAZENIL 0.5 MG/5 ML VIAL IV PUSH PRN (08:15)
[2017-09-07] MEDS ORDERED: SODIUM CHLORIDE 0.9% FLUSH 10 ML FLUSH IV FLUSH PRN (08:15)
[2017-09-07] MEDS ORDERED: LORazepam 1 MG TAB PO PRN (08:15)
[2017-09-07] MEDS ORDERED: LORazepam 2 MG TAB PO PRN (08:15)
[2017-09-07] MEDS ORDERED: LORazepam 2 MG/ML VIAL IV PUSH PRN ×4 (08:15)
--- NOTE | 2017-09-07 08:20 | PD.PSY.CON ---
Provisional Diagnosis Admission Date Sep 06, 2017 at 21:10 History of Present Illness Service Psychiatry Consult Requested By ER team Reason for Consult Suicidal attempt Primary Care Physician Heather Sullivan MD HPI The patient is a 67-year-old woman, domiciled alone in her apartment [place], , unemployed, supported by Social Security benefits, with psychiatric history of depression, bipolar disorder, severe alcohol use disorder , 5 previous psychiatric hospitalizations, last hospitalization here at [facility] in July 2017, documentation reviewed, previous suicidal attempts, multiple ER visits due to alcohol use disorder, patient has history of alcohol withdrawal , past medical history significant for diabetes, hypertension,who present in the ER under Lees act after drinking a half bottle of rubbing alcohol in an attempt to end her life. She states that she did this about 2:30 in the afternoon. Staff states that the ambulance team said it was sometime this morning. She is off all of her medications including her bipolar and diabetes medications. Patient is a poor historian. Patient was consulted to psychiatry due to his ideation with a plan of overdosing or jumping off a bridge. She has a red left eye from a recent fall, Brain CT and maxillofacial CT dont show any acute lesion. are On psychiatric evaluation patient hypoactive , distant, minimally communicative, endorsing symptoms of depression, says that she doesn't have any reason to live for, or her family , she cannot get rid of using alcohol every day, she lost her job recently. 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 She says that she has been drinking alcohol every day and thinking about committing suicide, she drinks 12-16 beers per day started very early in the morning. Patient says that "if I would not be here right now, I would be jumping off a bridge or overdosing again". Patient is irritable, tearful during the evaluation. Denies homicidal ideation, denies visual and auditory hallucinations. Patient is oriented 3, no attention deficit, no fluctuation of consciousness, no withdrawal symptoms reported or observed at this moment. Review of Systems Constitutional: DENIES: Diaphoretic episodes, Fatigue, Fever, Weight gain, Weight loss, Chills, Dizziness, Change in appetite, Night Sweats Endocrine: DENIES: Abnorml menstrual pattern, Heat/cold intolerance, Polydipsia , Polyuria, Polyphagia Eyes: DENIES: Blurred vision, Diplopia, Eye inflammation, Eye pain, Vision loss , Photosensitivity, Double Vision Ears, nose, mouth, throat: DENIES: Tinnitus, Hearing loss, Vertigo, Nasal discharge, Oral lesions, Throat pain, Hoarseness, Ear Pain, Running Nose, Epistaxis, Sinus Pain, Toothache, Odynophagia Respiratory: DENIES: Apneas, Cough, Snoring, Wheezing, Hemoptysis, Sputum production, Shortness of breath Cardiovascular: DENIES: Chest pain, Palpitations, Syncope, Dyspnea on Exertion , PND, Lower Extremity Edema, Orthopnea, Claudication Gastrointestinal: DENIES: Abdominal pain, Black stools, Bloody stools, Constipation, Diarrhea, Nausea, Vomiting, Difficulty Swallowing, Anorexia Genitourinary: DENIES: Abnormal vaginal bleeding, Dysmenorrhea, Dyspareunia, Sexual dysfunction, Urinary frequency, Urinary incontinence, Urgency, Hematuria , Dysuria, Nocturia, Vaginal discharge Musculoskeletal: DENIES: Joint pain, Muscle aches, Stiffness, Joint Swelling, Back pain, Neck pain Integumentary: DENIES: Abnormal pigmentation, Pruritus, Rash, Nail changes, Breast masses, Breast skin changes, Nipple discharge Hematologic/lymphatic: DENIES: Bruising, Lymphadenopathy Immunologic/allergic: DENIES: Eczema, Urticaria Neurologic: DENIES: Abnormal gait, Headache, Localized weakness, Paresthesias, Seizures, Speech Problems, Tremor, Poor Balance Psychiatric: COMPLAINS OF: Mood changes, Suicidal Ideation, DENIES: Anxiety, Confusion, Depression, Hallucinations, Agitation, Homicidal Ideation, Delusions Past Family Social History Coded Allergies: codeine (Verified Allergy, Severe, Hives, 09/06/17) penicillin G (Verified Allergy, Unknown, 09/06/17) Discontinued Reported Medications Metformin (Metformin) 1,000 Mg Tab, 1000 MG PO BIDPC for Blood Sugar Management , #60 TAB 0 Refills 07/18/17 Discontinued Scripts Citalopram (Celexa) 20 Mg Tab, 10 MG PO DAILY for health, #30 TAB Prov:Constantine Amaro MD 07/25/17 Chlordiazepoxide HCl (Chlordiazepoxide HCl) 10 Mg Capsule, 1 TAB PO DIRECTED for Alcohol Detox for 10 Days, #18 TAB Take THREE Times daily for 3 Days, then TWICE daily for 3 days, then ONCE a day for 3 Days. Prov:Max Leon MD 07/19/17 Multiple Vitamin (Thera/Beta-Carotene) 1 Tab Tab, 1 TAB PO DAILY for Nutritional Supplement, #30 TAB 0 Refills Prov:Reginald Angel MD 07/18/17 Thiamine HCl (Gnp Vitamin B-1) 100 Mg Tab, 100 MG PO DAILY for Nutritional Supplement, #30 TAB 0 Refills Prov:Reginald Angel MD 07/18/17 Folic Acid (Folic Acid) 1 Mg Tablet, 1 MG PO DAILY for Nutritional Supplement, # 30 TAB 0 Refills Prov:Reginald Angel MD 07/18/17 Current Medications Medications (Trade) Dose Ordered Sig/Gia Route Start Time Stop Time Status Last Admin (Pepcid Inj) 20 mg ONCE IV PUSH 09/06/17 19:45 09/06/17 20:24 Sodium Chloride 1,000 ml @ 100 mls/hr Q10H IV 09/06/17 22:00 09/07/17 07:54 (NS Flush) 2 ml UNSCH PRN IV FLUSH 09/06/17 21:15 (NS Flush) 2 ml BID IV FLUSH 09/07/17 09:00 (Narcan Inj) 0.4 mg UNSCH PRN IV PUSH 09/06/17 21:15 (D50w (Vial) Inj) 50 ml UNSCH PRN IV PUSH 09/07/17 04:45 (Glucagon Inj) 1 mg UNSCH PRN OTHER 09/07/17 04:45 (NovoLOG SUPPLEMENTAL SCALE) 1 ACHS SLIDING SCALE SQ 09/07/17 08:00 Family Psych History She denies family psychiatric history Social History Patient was born and raised in [place], she lives in [place] alone, she is single, has no kids, unemployed, supported by Social Security, her highest level of education is high school Patient's Strengths (min. 2) Verbal communication Physical Exam At this moment the patient doesn't have any objective symptom of withdrawal, no tremors, no sweating, no stiffness, but she does present as significant psychomotor retardation Vital Signs Vital Signs Date Time Temp Pulse Resp B/P (MAP) Pulse Ox O2 Delivery O2 Flow Rate FiO2 09/07/17 07:44 97.8 109 20 148/77 (100) 100 09/07/17 05:04 21 09/07/17 00:17 Room Air I/O 09/07/17 09/07/17 09/08/17 08:00 16:00 00:00 Intake Total 2000 ml Balance 2000 ml Lab Results Test 09/06/17 17:47 09/06/17 22:30 09/06/17 23:29 09/07/17 03:35 White Blood Count 19.3 TH/MM3 Red Blood Count 4.11 MIL/MM3 Hemoglobin 13.3 GM/DL Hematocrit 39.0 % Mean Corpuscular Volume 94.8 FL Mean Corpuscular Hemoglobin 32.3 PG Mean Corpuscular Hemoglobin Concent 34.1 % Red Cell Distribution Width 14.7 % Platelet Count 349 TH/MM3 Mean Platelet Volume 7.6 FL Neutrophils (%) (Auto) 91.3 % Lymphocytes (%) (Auto) 4.2 % Monocytes (%) (Auto) 4.0 % Eosinophils (%) (Auto) 0.1 % Basophils (%) (Auto) 0.4 % Neutrophils # (Auto) 17.7 TH/MM3 Lymphocytes # (Auto) 0.8 TH/MM3 Monocytes # (Auto) 0.8 TH/MM3 Eosinophils # (Auto) 0.0 TH/MM3 Basophils # (Auto) 0.1 TH/MM3 CBC Comment DIFF FINAL Differential Comment Prothrombin Time 10.6 SEC Prothromb Time International Ratio 1.0 RATIO Activated Partial Thromboplast Time 18.3 SEC Blood Urea Nitrogen 45 MG/DL 39 MG/DL Creatinine 2.85 MG/DL 2.03 MG/DL Random Glucose 475 MG/DL 314 MG/DL Total Protein 6.9 GM/DL Albumin 3.4 GM/DL Calcium Level 8.0 MG/DL 7.7 MG/DL Alkaline Phosphatase 61 U/L Aspartate Amino Transf (AST/SGOT) 49 U/L Alanine Aminotransferase (ALT/SGPT) 32 U/L Total Bilirubin 0.4 MG/DL Sodium Level 138 MEQ/L 147 MEQ/L Potassium Level 3.8 MEQ/L 3.9 MEQ/L Chloride Level 103 MEQ/L 115 MEQ/L Carbon Dioxide Level 15.4 MEQ/L 16.3 MEQ/L Anion Gap 20 MEQ/L 16 MEQ/L Estimat Glomerular Filtration Rate 17 ML/MIN 24 ML/MIN Serum Osmolality 387 MOSM/KG 367 MOSM/KG Salicylates Level 3.2 MG/DL Acetaminophen Level LESS THAN 2.0 MCG/ML Ethyl Alcohol Level LESS THAN 3 MG/DL B-Hydroxybutyrate 8.16 MMOL/L Urine Color LIGHT-YELLOW Urine Turbidity CLEAR Urine pH 5.0 Urine Specific Sabin 1.024 Urine Protein TRACE mg/dL Urine Glucose (UA) 1000 mg/dL Urine Ketones 150 mg/dL Urine Occult Blood SMALL Urine Nitrite NEG Urine Bilirubin NEG Urine Urobilinogen LESS THAN 2.0 MG/DL Urine Leukocyte Esterase NEG Urine RBC 1 /hpf Urine WBC 3 /hpf Urine Squamous Epithelial Cells <1 /hpf Urine Bacteria RARE /hpf Urine Mucus FEW /lpf Microscopic Urinalysis Comment CULT NOT INDICATED Urine Opiates Screen NEG Urine Barbiturates Screen NEG Urine Amphetamines Screen NEG Urine Benzodiazepines Screen NEG Urine Cocaine Screen NEG Urine Cannabinoids Screen NEG Blood Gas Puncture Site IV Blood Gas Patient Temperature 37.0 Venous Blood pH 7.35 Venous Blood Partial Pressure CO2 27 mmHg Venous Blood Partial Pressure O2 70 mmHg Venous Blood HCO3 14 mmol/L Venous Blood Oxygen Saturation 89 % Venous Blood Oxygen Content 14.9 Vol % Venous Blood Base Excess -10.1 mmol/L Oxygen Delivery Device ROOM AIR Blood Gas Inspired Oxygen 21 % Iron Level 65 MCG/DL Total Iron Binding Capacity 322 MCG/DL Percent Iron Saturation 20.2 % Test 09/07/17 07:10 White Blood Count 13.9 TH/MM3 Red Blood Count 3.58 MIL/MM3 Hemoglobin 11.5 GM/DL Hematocrit 34.1 % Mean Corpuscular Volume 95.3 FL Mean Corpuscular Hemoglobin 32.0 PG Mean Corpuscular Hemoglobin Concent 33.6 % Red Cell Distribution Width 14.6 % Platelet Count 230 TH/MM3 Mean Platelet Volume 6.8 FL Neutrophils (%) (Auto) 86.1 % Lymphocytes (%) (Auto) 6.4 % Monocytes (%) (Auto) 7.4 % Eosinophils (%) (Auto) 0.0 % Basophils (%) (Auto) 0.1 % Neutrophils # (Auto) 12.0 TH/MM3 Lymphocytes # (Auto) 0.9 TH/MM3 Monocytes # (Auto) 1.0 TH/MM3 Eosinophils # (Auto) 0.0 TH/MM3 Basophils # (Auto) 0.0 TH/MM3 CBC Comment DIFF FINAL Differential Comment Blood Urea Nitrogen 40 MG/DL Creatinine 1.98 MG/DL Random Glucose 289 MG/DL Calcium Level 8.0 MG/DL Sodium Level 145 MEQ/L Potassium Level 3.8 MEQ/L Chloride Level 113 MEQ/L Carbon Dioxide Level 16.8 MEQ/L Anion Gap 15 MEQ/L Estimat Glomerular Filtration Rate 25 ML/MIN Mental Status Examination Appearance: Appropriate Consciousness: Alert Orientation: x4 Motor Activity: Normal gait Speech: Unremarkable Language: Adequate Fund of Knowledge: Adequate Attention and Concentration: Adequate Memory: Unremarkable Mood: Sad Affect: Sad, Flat Thought Process & Associations: Intact Thought Content: Appropriate Hallucination Type: None Delusion Type: None Suicidal Ideation: Yes Suicidal Plan: Yes Suicidal Intention: No Homicidal Ideation: No Homicidal Plan: No Homicidal Intention: No Insight: Poor Judgment: Poor Assessment & Plan Problem List: (1) Major depression, recurrent ICD Codes: F33.9 - Major depressive disorder, recurrent, unspecified Status: Acute Assessment & Plan: On psychiatric evaluation the patient presents with severe symptoms of depression. Patient reports anhedonia, lack of control in using alcohol, persistent suicidal thoughts and sadness. Patient has previous suicidal attempts, increased alcohol use, no identifiable protective factors, recent hospitalizations and a recent suicidal attempt by overdose with rubbing alcohol. Patient has an increased risk of danger to herself at this moment and she needs psychiatric hospitalization for stabilization. She has a very increased risk of alcohol withdrawal. Will order CIWA protocol. MTV, b12, folate. No additional psychotropics at the moment. Patient needs psychiatric admission for stabilization and safety. Continue 1:1 sitter in the floor and ER for safety. Motivation support and psychoeducation provided. Case discussed with medical student Giovana and nurse in charge. Transfer to psychiatric once medically stable. Could be appropriate for med/psy. Assessment & Plan Estimated LOS: Constantine Reaves MD Sep 07, 2017 08:20
[2017-09-07] MEDS ORDERED: SODIUM CHLORIDE 0.9% FLUSH 10 ML FLUSH IV FLUSH SCH ×2 (09:00)
[2017-09-07] MEDS ORDERED: INSULIN DETEMIR 100 UNITS/ML VIAL SQ SCH (10:45)
[2017-09-07] MEDS ORDERED: LORazepam INJ IV PUSH ×4 (10:58)
[2017-09-07] MEDS ORDERED: FLUM0.5I3 IV PUSH (10:58)
[2017-09-07] MEDS ORDERED: 0.92SYRI2 IV (10:58)
[2017-09-07] MEDS ORDERED: LEVEMIR SQ (10:58)
[2017-09-07] MEDS ORDERED: LORA-475 PO (10:58)
[2017-09-07] MEDS ORDERED: LORA-474 PO (10:58)
[2017-09-07] MEDS ORDERED: NOVOLOGP2 SQ (10:58)
--- NOTE | 2017-09-07 11:05 | HHI.DCPOC ---
Discharge Care Plan Diagnosis: (1) Isopropyl alcohol poisoning (2) Overdose (3) Major depression, recurrent (4) Suicidal ideation (5) History of alcohol abuse Goals to Promote Your Health * To prevent worsening of your condition and complications * To maintain your health at the optimal level Directions to Meet Your Goals Take your medications as prescribed Follow your dietary instruction Follow activity as directed Keep your appointments as scheduled Take your immunizations and boosters as scheduled If your symptoms worsen call your PCP, if no PCP go to Urgent Care Center or Emergency Room Smoking is Dangerous to Your Health. Avoid second hand smoke Call the 24-hour hour crisis hotline for domestic abuse at Valerio Mac DO Sep 07, 2017 11:05
--- NOTE | 2017-09-07 11:18 | HHI.HP ---
[facility] Heather Sullivan MD Admission Diagnosis isopropyl ingestion intentional need ETOH and SI Diagnoses: Chief Complaint: Overdose, depression Travel History International Travel<30 Days: No Contact w/Intl Traveler <30 Da: No Traveled to Known Affected Are: No History of Present Illness The patient is a 67-year-old female with past medical history of depression and diabetes who is presenting to the hospital following an overdose of rubbing alcohol. The patient said she has overdosed on rubbing alcohol before in the past. She says she generally drinks about 16 beers daily. She says she is currently out of work as she lost her job and she has alcoholism. She says she ran out of her beer and started drinking rubbing alcohol. She said she had about half of the bottle prior to coming to the emergency department. Per reports the pt has been endorsing suicidal thoughts. She said she talked with the psychiatrist earlier this morning. There was a sitter at the bedside. The patient said that she does not have any family. The patient denies taking any other substances besides the rubbing alcohol. Review of Systems ROS Limitations: Poor Historian Except as stated in HPI: all other systems reviewed are Neg Past Family Social History Past Medical History History of alcohol abuse with multiple hospitalizations Diabetes mellitus Major depression Anxiety Dyslipidemia Past Surgical History Left total hip replacement Hysterectomy Allergies: Coded Allergies: codeine (Verified Allergy, Severe, Hives, 09/06/17) penicillin G (Verified Allergy, Unknown, 09/06/17) Active Ordered Medications Current Medications Medications (Trade) Dose Ordered Sig/Gia Route Start Time Stop Time Status Last Admin (Pepcid Inj) 20 mg ONCE IV PUSH 09/06/17 19:45 09/06/17 20:24 Sodium Chloride 1,000 ml @ 100 mls/hr Q10H IV 09/06/17 22:00 09/07/17 07:54 (NS Flush) 2 ml UNSCH PRN IV FLUSH 09/06/17 21:15 (NS Flush) 2 ml BID IV FLUSH 09/07/17 09:00 (Narcan Inj) 0.4 mg UNSCH PRN IV PUSH 09/06/17 21:15 (D50w (Vial) Inj) 50 ml UNSCH PRN IV PUSH 09/07/17 04:45 (Glucagon Inj) 1 mg UNSCH PRN OTHER 09/07/17 04:45 (NovoLOG SUPPLEMENTAL SCALE) 1 ACHS SLIDING SCALE SQ 09/07/17 08:00 09/07/17 09:25 (Romazicon Inj) 0.2 mg Q1M PRN IV PUSH 09/07/17 08:15 (Ativan) 1 mg Q4H PRN PO 09/07/17 08:15 (Ativan Inj) 1 mg Q4H PRN IV PUSH 09/07/17 08:15 (Ativan) 2 mg Q2H PRN PO 09/07/17 08:15 (Ativan Inj) 2 mg Q2H PRN IV PUSH 09/07/17 08:15 (Ativan Inj) 2 mg Q1H PRN IV PUSH 09/07/17 08:15 (Ativan Inj) 2 mg Q15M PRN IV PUSH 09/07/17 08:15 (Levemir Inj) 15 units DAILY SQ 09/07/17 10:45 Family History Alcoholism Social History The patient does not smoke. She drinks about 16 beers daily. She denies any other illicit drugs. Physical Exam Vital Signs Vital Signs Date Time Temp Pulse Resp B/P (MAP) Pulse Ox O2 Delivery O2 Flow Rate FiO2 09/07/17 07:44 97.8 109 20 148/77 (100) 100 09/07/17 05:04 21 09/07/17 05:03 107 09/07/17 04:15 97.7 109 18 160/78 (105) 100 09/07/17 00:17 110 18 155/75 (101) 100 Room Air 09/06/17 18:17 108 16 99 Room Air 09/06/17 17:12 110 15 151/74 (99) 99 Room Air 09/06/17 17:12 110 15 151/74 (99) 99 Room Air 09/06/17 17:08 98.0 101 16 151/74 (99) 100 Physical Exam GENERAL: Well-nourished, well-developed patient. SKIN: Warm and dry. HEAD: Normocephalic and periorbital ecchymosis noted on the left EYES: No injection or drainage. ENT: No nasal drainage noted. NECK: Supple, trachea midline. CARDIOVASCULAR: Regular rate and rhythm RESPIRATORY: No increased effort. No accessory muscle use. GASTROINTESTINAL: Abdomen soft, non-tender, nondistended. EXTREMITIES: No edema. NEUROLOGICAL: Awake. Moves all extremities and sensory grossly within normal limits. Slow speech. PSYCH: Flattened affect. Laboratory Laboratory Tests Test 09/06/17 17:47 09/06/17 22:30 09/06/17 23:29 09/07/17 03:35 White Blood Count 19.3 Red Blood Count 4.11 Hemoglobin 13.3 Hematocrit 39.0 Mean Corpuscular Volume 94.8 Mean Corpuscular Hemoglobin 32.3 Mean Corpuscular Hemoglobin Concent 34.1 Red Cell Distribution Width 14.7 Platelet Count 349 Mean Platelet Volume 7.6 Neutrophils (%) (Auto) 91.3 Lymphocytes (%) (Auto) 4.2 Monocytes (%) (Auto) 4.0 Eosinophils (%) (Auto) 0.1 Basophils (%) (Auto) 0.4 Neutrophils # (Auto) 17.7 Lymphocytes # (Auto) 0.8 Monocytes # (Auto) 0.8 Eosinophils # (Auto) 0.0 Basophils # (Auto) 0.1 CBC Comment DIFF FINAL Differential Comment Prothrombin Time 10.6 Prothromb Time International Ratio 1.0 Activated Partial Thromboplast Time 18.3 Blood Urea Nitrogen 45 39 Creatinine 2.85 2.03 Random Glucose 475 314 Total Protein 6.9 Albumin 3.4 Calcium Level 8.0 7.7 Alkaline Phosphatase 61 Aspartate Amino Transf (AST/SGOT) 49 Alanine Aminotransferase (ALT/SGPT) 32 Total Bilirubin 0.4 Sodium Level 138 147 Potassium Level 3.8 3.9 Chloride Level 103 115 Carbon Dioxide Level 15.4 16.3 Anion Gap 20 16 Estimat Glomerular Filtration Rate 17 24 Serum Osmolality 387 367 Salicylates Level 3.2 Acetaminophen Level LESS THAN 2.0 Ethyl Alcohol Level LESS THAN 3 B-Hydroxybutyrate 8.16 Urine Color LIGHT-YELLOW Urine Turbidity CLEAR Urine pH 5.0 Urine Specific [place] 1.024 Urine Protein TRACE Urine Glucose (UA) 1000 Urine Ketones 150 Urine Occult Blood SMALL Urine Nitrite NEG Urine Bilirubin NEG Urine Urobilinogen LESS THAN 2.0 Urine Leukocyte Esterase NEG Urine RBC 1 Urine WBC 3 Urine Squamous Epithelial Cells <1 Urine Bacteria RARE Urine Mucus FEW Microscopic Urinalysis Comment CULT NOT INDICATED Urine Opiates Screen NEG Urine Barbiturates Screen NEG Urine Amphetamines Screen NEG Urine Benzodiazepines Screen NEG Urine Cocaine Screen NEG Urine Cannabinoids Screen NEG Blood Gas Puncture Site IV Blood Gas Patient Temperature 37.0 Venous Blood pH 7.35 Venous Blood Partial Pressure CO2 27 Venous Blood Partial Pressure O2 70 Venous Blood HCO3 14 Venous Blood Oxygen Saturation 89 Venous Blood Oxygen Content 14.9 Venous Blood Base Excess -10.1 Oxygen Delivery Device ROOM AIR Blood Gas Inspired Oxygen 21 Iron Level 65 Total Iron Binding Capacity 322 Percent Iron Saturation 20.2 Test 09/07/17 07:10 White Blood Count 13.9 Red Blood Count 3.58 Hemoglobin 11.5 Hematocrit 34.1 Mean Corpuscular Volume 95.3 Mean Corpuscular Hemoglobin 32.0 Mean Corpuscular Hemoglobin Concent 33.6 Red Cell Distribution Width 14.6 Platelet Count 230 Mean Platelet Volume 6.8 Neutrophils (%) (Auto) 86.1 Lymphocytes (%) (Auto) 6.4 Monocytes (%) (Auto) 7.4 Eosinophils (%) (Auto) 0.0 Basophils (%) (Auto) 0.1 Neutrophils # (Auto) 12.0 Lymphocytes # (Auto) 0.9 Monocytes # (Auto) 1.0 Eosinophils # (Auto) 0.0 Basophils # (Auto) 0.0 CBC Comment DIFF FINAL Differential Comment Blood Urea Nitrogen 40 Creatinine 1.98 Random Glucose 289 Calcium Level 8.0 Sodium Level 145 Potassium Level 3.8 Chloride Level 113 Carbon Dioxide Level 16.8 Anion Gap 15 Estimat Glomerular Filtration Rate 25 Result Diagram: 09/07/17 0710 09/07/17 0710 Imaging Last Impressions Head CT 09/06/17 1655 Signed Impressions: Service Date/Time: Wednesday, September 06, 2017 19:00 - CONCLUSION: 1. Mild periventricular and subcortical white matter small vessel ischemic changes bilaterally. 2. No acute infarct, acute hemorrhage, mass effect or extra- axial fluid collections. Mark Saucedo MD Maxillofacial CT 09/06/17 0000 Signed Impressions: Service Date/Time: Wednesday, September 06, 2017 19:01 - CONCLUSION: 1. No facial bone fracture identified. 2. Minimal mucosal thickening within the left sphenoid sinus. 3. Nasal septal deviation to the right. Mark Saucedo MD Chest X-Ray 09/06/17 0000 Signed Impressions: Service Date/Time: Wednesday, September 06, 2017 18:41 - CONCLUSION: No acute disease. MD Fawn Salazar VTE Risk Assessment Caprini VTE Risk Assessment: Mod/High Risk (score >= 2) Caprini Risk Assessment Model Point Value = 1 Point Value = 2 Point Value = 3 Point Value = 5 Age 41-60 Minor surgery BMI > 25 kg/m2 Swollen legs Varicose veins or History of unexplained or recurrent spontaneous Oral contraceptives or hormone replacement Sepsis (< 1 month) Serious lung disease, including pneumonia (< 1 month) Abnormal pulmonary function Acute myocardial infarction Congestive heart failure (< 1 month) History of inflammatory bowel disease Medical patient at bed rest Age 61-74 Arthroscopic surgery Major open surgery (> 45 min) Laparoscopic surgery (> 45 min) Malignancy Confined to bed (> 72 hours) Immobilizing plaster cast Central venous access Age >= 75 History of VTE Family history of VTE Factor V Leiden Prothrombin [id number] Lupus anticoagulant Anticardiolipin antibodies Elevated serum homocysteine Heparin-induced thrombocytopenia Other congenital or acquired thrombophilia Stroke (< 1 month) Elective arthroplasty Hip, pelvis, or leg fracture Acute spinal cord injury (< 1 month) Prophylaxis Regimen Total Risk Factor Score Risk Level Prophylaxis Regimen 0-1 Low Early ambulation 2 Moderate Order ONE of the following: *Sequential Compression Device (SCD) *Heparin 5000 units SQ BID 3-4 Higher Order ONE of the following medications: *Heparin 5000 units SQ TID *Enoxaparin/Lovenox 40 mg SQ daily (WT < 150 kg, CrCl > 30 mL/min) *Enoxaparin/Lovenox 30 mg SQ daily (WT < 150 kg, CrCl > 10-29 mL/min) *Enoxaparin/Lovenox 30 mg SQ BID (WT < 150 kg, CrCl > 30 mL/min) AND/OR *Sequential Compression Device (SCD) 5 or more Highest Order ONE of the following medications: *Heparin 5000 units SQ TID (Preferred with Epidurals) *Enoxaparin/Lovenox 40 mg SQ daily (WT < 150 kg, CrCl > 30 mL/min) *Enoxaparin/Lovenox 30 mg SQ daily (WT < 150 kg, CrCl > 10-29 mL/min) *Enoxaparin/Lovenox 30 mg SQ BID (WT < 150 kg, CrCl > 30 mL/min) AND *Sequential Compression Device (SCD) Assessment and Plan Assessment and Plan Overdose The patient took half a bottle of rubbing alcohol. She has done this in the past when she ran out of regular alcohol (beer). She initially had an anion gap that has since closed. She does have an increased osmolality gap. EKG is stable. CXR and head CT unremarkable. - supportive care including IVFs. - telemetry. - follow EKG. Severe depression Psychiatry consult appreciated. - d/c to med-psych unit for stabilization. Acute renal failure S/t overdose of rubbing alcohol. Improving with fluids. - IVFs. - avoid nephrotoxic agents. - follow BMP. Diabetes The pt does not take any meds. - sliding scale. - Levemir 15 units daily started. - check an A1c. Leukocytosis Likely a stress reaction. Chest x-ray unremarkable. UA without evidence of infection. The patient is afebrile. - Follow CBC. Tachycardia/ HTN Likely secondary to overdose. - Continue supportive measures. - Clonidine as needed. PPx: Heparin Discussed Condition With Pt Valerio Mac DO Sep 07, 2017 11:18
[2017-09-07 11:40] VITALS: BP 171/83; PULSE 104; RESP 20; TEMP 98.3; O2SAT 99
[2017-09-07] MEDS ORDERED: HEPARIN SODIUM - SQ 10,000 UNITS/ML VIAL SQ SCH (12:00)
--- NOTE | 2017-09-07 17:35 | EKG ---
Date Performed: 09/06/2017 Time Performed: 17:22:36 PTAGE: 67 years EKG: SINUS TACHYCARDIA LOW QRS VOLTAGE IN PRECORDIAL LEADS Poor R wave progression. RIGHT BUNDLE BRANCH BLOCK Consider INFERIOR MYOCARDIAL INFARCTION-age undeterminate. ABNORMAL ECG PREVIOUS TRACING : 07/18/2017 15.57 DOCTOR: Pawan Dill Interpretating Date/Time 09/07/2017 17:34:53
== END 2017-09-07 13:12 ==
LOC: NEPC 15:55 → NEDA 21:10 → NEPHCDU 09-07 03:35
PROVIDERS: ADMIT Hospitalist; ATTEND Hospitalist
DX: T51.2X2A Toxic effect of 2-Propanol, intentional self-harm, initial encounter (principal); D72.829 Elevated white blood cell count, unspecified; E11.9 Type 2 diabetes mellitus without complications; I10 Essential (primary) hypertension; R00.0 Tachycardia, unspecified; N17.9 Acute kidney failure, unspecified; Y92.009 Unspecified place in unspecified non-institutional (private) residence as the place of occurrence of the external cause; R45.851 Suicidal ideations; F41.9 Anxiety disorder, unspecified; E78.5 Hyperlipidemia, unspecified; I45.10 Unspecified right bundle-branch block; F31.9 Bipolar disorder, unspecified; F10.10 Alcohol abuse, uncomplicated; Z96.642 Presence of left artificial hip joint; Z91.19 Patient's noncompliance with other medical treatment and regimen
CPT/HCPCS: 70450; 70486; 71010; 80048; 80053; 80307; 81001; 82010; 82805; 82948; 83540; 83550; 83930; 83935; 85025; 85610; 85730; 93005; 96361; 96372; 96374; 96375; 96376; 99285; G0378; J1815; J2060; J7030

== ENCOUNTER 2017-09-07 13:15 | Inpatient (IN) | payer OTHER, MEDICARE ==
[~2017-09-07] VITALS: Ht 160 cm; Wt 62.4 kg
[~2017-09-07 13:15] MED LIST changes: +0.92SYRI2 IV; -CELE20TA PO; -CHLO10CA5 PO; +FLUM0.5I3 IV PUSH; -FOLI1TAB6 PO; +LEVEMIR SQ; +LORA-474 PO; +LORA-475 PO; +LORazepam INJ IV PUSH; -METF1000 PO; +NOVOLOGP2 SQ; -THERTAB15 PO; -THIA100 PO
[2017-09-07 14:58] VITALS: BP 134/76; PULSE 99; RESP 18; TEMP 97.7; O2SAT 100
[2017-09-07] MEDS ORDERED: LORAZEPAM IV PUSH PRN ×4 (16:30)
[2017-09-07] MEDS ORDERED: ACETAMINOPHEN 325 MG TAB PO PRN (16:30)
[2017-09-07] MEDS ORDERED: LORazepam 0.5 MG TAB PO PRN (16:30)
[2017-09-07] MEDS ORDERED: MAGNESIUM HYDROXIDE SUSP 30 ML CUP PO PRN (16:30)
[2017-09-07] MEDS ORDERED: LORazepam 2 MG/ML VIAL IM PRN ×2 (16:30)
[2017-09-07] MEDS ORDERED: LORazepam 1 MG TAB PO PRN (16:30)
[2017-09-07] MEDS: NICOTINE 21 MG/24 HR PATCH T-DERMAL SCH (17:30)
[2017-09-07] MEDS: INSULIN DETEMIR 100 UNITS/ML VIAL SQ SCH (17:35)
[2017-09-07] MEDS ORDERED: LORazepam 2 MG TAB PO PRN (17:45)
[2017-09-07] MEDS ORDERED: FLUMAZENIL 0.5 MG/5 ML VIAL IV PUSH PRN (17:45)
[2017-09-07] MEDS ORDERED: LORazepam 2 MG/ML VIAL IV PUSH PRN ×4 (17:45)
[2017-09-07] MEDS: LORazepam 1 MG TAB PO PRN (20:38)
[2017-09-07 20:54] VITALS: BP 148/76; PULSE 106; RESP 17; TEMP 97.2; O2SAT 99
[2017-09-08 06:28] VITALS: BP 135/61; PULSE 73; RESP 17; TEMP 97.6; O2SAT 95
[2017-09-08] MEDS: NICOTINE 21 MG/24 HR PATCH T-DERMAL SCH (09:00)
[2017-09-08] MEDS: REMOVE OLD NICOTINE PATCH T-DERMAL SCH (09:00)
[2017-09-08] MEDS: INSULIN DETEMIR 100 UNITS/ML VIAL SQ SCH (09:16)
[2017-09-08] MEDS ORDERED: FLUMAZENIL 1 MG/10 ML VIAL IV PUSH PRN (09:45)
[2017-09-08] MEDS ORDERED: diphenhydrAMINE HCL 50 MG CAP PO PRN (09:45)
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
--- NOTE | 2017-09-08 11:10 | PD.CONS ---
[facility] Reason for Consult Medical management Primary Care Physician Heather Sullivan MD Diagnoses: History of Present Illness 67-year-old female with history of diabetes type 2, bipolar with depression, multiple hospitalization secondary to suicidal ideation and alcohol abuse was admitted to inpatient psychiatry after patient was initially admitted secondary to OD on rubbing alcohol. Patient states, she runs out of alcohol and was too weak to go to the store therefore she decided to drink some rubbing alcohol. She also reported suicidal thoughts at a time. Patient has been seen and examined inpatient psychiatry where she denies any chest pain or shortness of breath. She denies any GI bleed. Blood glucose 189, BUN/creatinine 40/1.98 Review of Systems Except as stated in HPI: all other systems reviewed are Neg Past Family Social History Allergies: Coded Allergies: codeine (Verified Allergy, Severe, Hives, 09/06/17) penicillin G (Verified Allergy, Unknown, 09/06/17) Past Medical History History of alcohol abuse with multiple hospitalizations Diabetes mellitus Major depression Anxiety Dyslipidemia Past Surgical History Left total hip replacement Hysterectomy Reported Medications No Active Prescriptions or Reported Medications Family History + Alcoholism Social History The patient does not smoke. She drinks about 16 beers daily. She denies any other illicit drugs. Physical Exam Vital Signs Vital Signs Date Time Temp Pulse Resp B/P (MAP) Pulse Ox O2 Delivery O2 Flow Rate FiO2 09/08/17 06:28 97.6 73 17 135/61 (85) 95 09/07/17 20:54 97.2 106 17 148/76 (100) 99 09/07/17 14:58 97.7 99 18 134/76 (95) 100 Physical Exam GENERAL: This is a well-nourished, well-developed patient, in no apparent distress. SKIN: No rashes, ecchymoses or lesions. Cool and dry. HEAD: Atraumatic. Normocephalic. No temporal or scalp tenderness. EYES: Pupils equal round and reactive. Extraocular motions intact. No scleral icterus. No injection or drainage. ENT: Nose without bleeding, purulent drainage or septal hematoma. Throat without erythema, tonsillar hypertrophy or exudate. Uvula midline. Airway patent. NECK: Trachea midline. No JVD or lymphadenopathy. Supple, nontender, no meningeal signs. CARDIOVASCULAR: Regular rate and rhythm without murmurs, gallops, or rubs. RESPIRATORY: Clear to auscultation. Breath sounds equal bilaterally. No wheezes , rales, or rhonchi. GASTROINTESTINAL: Abdomen soft, non-tender, nondistended. No hepato-splenomegaly , or palpable masses. No guarding. MUSCULOSKELETAL: Extremities without clubbing, cyanosis, or edema. No joint tenderness, effusion, or edema noted. No calf tenderness. Negative Homans sign bilaterally. NEUROLOGICAL: Awake and alert. Cranial nerves II through XII intact. Motor and sensory grossly within normal limits. Five out of 5 muscle strength in all muscle groups. Normal speech. Assessment and Plan Assessment and Plan 67-year-old female with Bipolar disorder with depression Suicidal ideation Management per psychiatry Overdose on rubbing alcohol Continue current conservative management Diabetes type 2 Labile blood glucose Start insulin sliding scale and continue with long-acting Levemir Hemoglobin A1c Acute on chronic kidney disease Improving BUN/creatinine However patient may benefit from gentle IV fluid hydration on psych med Continue to monitor BUN and creatinine avoid all nephrotoxic drugs Leukocytosis Stress reactive Chest x-ray, UA negative Monitor CBC PPx:Encourage ambulation Code Status Full code Discussed Condition With Patient Joselo Ontiveros MD Sep 08, 2017 11:10
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
[2017-09-08] MEDS ORDERED: DEXTROSE 50% IN WATER 50 ML VIAL(D50) IV PUSH PRN (13:45)
[2017-09-08] MEDS ORDERED: GLUCAGON 1 MG/ML VIAL OTHER PRN (13:45)
[2017-09-08] MEDS: INSULIN ASPART SUPPLEMENTAL SCALE SQ SCH ×2 (17:13→21:09)
[2017-09-08 17:23] VITALS: BP 148/73; PULSE 89; RESP 18; TEMP 98.4; O2SAT 100
[2017-09-08] MEDS: MIRTAZAPINE 15 MG TAB PO SCH (20:36)
[2017-09-08] MEDS: hydrOXYzine HCL 50 MG TAB PO PRN (21:19)
[2017-09-09 06:01] VITALS: BP 148/89; PULSE 52; RESP 16; TEMP 99.2; O2SAT 96
[2017-09-09] MEDS: INSULIN ASPART SUPPLEMENTAL SCALE SQ SCH ×4 (08:00→20:55)
[2017-09-09] MEDS: REMOVE OLD NICOTINE PATCH T-DERMAL SCH (08:03)
[2017-09-09] MEDS: NICOTINE 21 MG/24 HR PATCH T-DERMAL SCH (08:03)
[2017-09-09 08:29] LABS: BASOPHIL % 0.2 % (0.0-2.0); HEMATOCRIT 35.7 % (35.0-46.0); HEMO FLAGS DIFF FINAL; LYMPH % 14.4 % (9.0-44.0); LYMPHOCYTE # 1.3 TH/MM3 (1.0-4.8); MEAN CELL VOLUME 91.8 FL (80.0-100.0); MEAN CORPUSCULAR HEMOGLOBIN 31.5 PG (27.0-34.0); MEAN CORPUSCULAR HGB CONC 34.3 % (32.0-36.0); MONO % 9.6 % (0.0-8.0); NEUT % 75.8 % (16.0-70.0); PLATELET COUNT 188 TH/MM3 (150-450); RED BLOOD COUNT 3.89 MIL/MM3 (4.00-5.30); RED CELL DISTRIBUTION WIDTH 14.1 % (11.6-17.2); WHITE BLOOD COUNT 9.2 TH/MM3 (4.0-11.0)
[2017-09-09] MEDS: INSULIN DETEMIR 100 UNITS/ML VIAL SQ SCH (08:51)
[2017-09-09 09:00] LABS: ALKALINE PHOSPHATASE 53 U/L (45-117); ALT (GPT) 27 U/L (10-53); ANION GAP 8 MEQ/L (5-15); AST (GOT) 26 U/L (15-37); BICARBONATE 29.3 MEQ/L (21.0-32.0); BLOOD UREA NITROGEN 12 MG/DL (7-18); CHLORIDE 96 MEQ/L (98-107); GLOMERULAR FILTRATION RATE 59 ML/MIN (>89); SODIUM (NA) 133 MEQ/L (136-145); TOTAL BILIRUBIN ADULT 0.6 MG/DL (0.2-1.0)
[2017-09-09 09:03] LABS: POTASSIUM 2.9 MEQ/L (3.5-5.1)
[2017-09-09] MEDS ORDERED: POTASSIUM CHLORIDE 10 MEQ CONTROLLED RELEASE TAB PO ONE (11:15)
[2017-09-09 12:49] LABS: HEMOGLOBIN A1a 1.6 %; HEMOGLOBIN A1b 2.3 %; HEMOGLOBIN LA1C 2.9 %; HEMOGLOBIN P3 4.3 %
--- NOTE | 2017-09-09 12:58 | HHI.PR ---
Subjective Remarks Patient seen and examined states this AM she was feeling weak and tired however now she is much more improved K 2.9 Objective Vitals Vital Signs Date Time Temp Pulse Resp B/P (MAP) Pulse Ox O2 Delivery O2 Flow Rate FiO2 09/09/17 06:01 99.2 52 16 148/89 (108) 96 09/08/17 17:23 98.4 89 18 148/73 (98) 100 I/O 09/08/17 09/08/17 09/08/17 09/09/17 09/09/17 09/09/17 07:00 15:00 23:00 07:00 15:00 23:00 Intake Total 0 ml 480 ml 720 ml Balance 0 ml 480 ml 720 ml Intake Oral 0 ml 480 ml 720 ml Result Diagram: 09/09/1774409/09/17744 Objective Remarks GENERAL: NAD SKIN: Warm and dry. HEAD: Normocephalic. EYES: No scleral icterus. No injection or drainage. NECK: Supple, trachea midline. No JVD or lymphadenopathy. CARDIOVASCULAR: Regular rate and rhythm without murmurs, gallops, or rubs. RESPIRATORY: Breath sounds equal bilaterally. No accessory muscle use. GASTROINTESTINAL: Abdomen soft, non-tender, nondistended. MUSCULOSKELETAL: No cyanosis, or edema. BACK: Nontender without obvious deformity. No CVA tenderness. A/P Assessment and Plan 67-year-old female with Bipolar disorder with depression Suicidal ideation Management per psychiatry Overdose on rubbing alcohol Continue current conservative management Diabetes type 2 continue insulin sliding scale and long-acting Levemir Hemoglobin A1c pending Acute on chronic kidney disease Improving BUN/creatinine However patient may benefit from gentle IV fluid hydration on psych med Continue to monitor BUN and creatinine avoid all nephrotoxic drugs Leukocytosis Stress reactive Chest x-ray, UA negative Monitor CBC Hypokalemia Give Potassium 60mEq x 1 now and repeat K @5PM PPx:Encourage ambulation Joselo Ontiveros MD Sep 09, 2017 12:58
[2017-09-09] MEDS: hydrOXYzine HCL 50 MG TAB PO PRN (17:36)
--- NOTE | 2017-09-09 17:43 | HHI.PYPN ---
Subjective Chief Complaint: depressed suicide attempt overdose isopropyl alcohol Remarks Patient was seen and case discussed with nursing. Patient is alert and oriented 3. CIWA was 1, 2, 0 per nursing. She has no nausea or vomiting. She has no tremors. She has no change in mental status. She remains depressed and blunted but denies suicidal or homicidal ideation intent or plan. Potassium was low this morning and she continues to be followed by the medical team Mental Status Examination Appearance: Appropriate, Disheveled (mildly) Consciousness: Alert Orientation: Person, Place, Date/Time Motor Activity: Other (patient somewhat unsteady with her gait she does have bruises over her left orbit and arms will have PT assess) Speech: Unremarkable Language: Adequate Fund of Knowledge: Adequate Attention and Concentration: Other (fair) Memory: Unremarkable (fair) Mood: Sad Affect: Blunt Thought Process & Associations: Intact Thought Content: Appropriate Hallucination Type: None Delusion Type: None Suicidal Ideation: No Suicidal Plan: No Suicidal Intention: No Homicidal Ideation: No Homicidal Plan: No Homicidal Intention: No Insight: Poor Judgment: Poor Results Labs Test 09/09/17 07:45 White Blood Count 9.2 TH/MM3 Red Blood Count 3.89 MIL/MM3 Hemoglobin 12.3 GM/DL Hematocrit 35.7 % Mean Corpuscular Volume 91.8 FL Mean Corpuscular Hemoglobin 31.5 PG Mean Corpuscular Hemoglobin Concent 34.3 % Red Cell Distribution Width 14.1 % Platelet Count 188 TH/MM3 Mean Platelet Volume 6.7 FL Neutrophils (%) (Auto) 75.8 % Lymphocytes (%) (Auto) 14.4 % Monocytes (%) (Auto) 9.6 % Eosinophils (%) (Auto) 0.0 % Basophils (%) (Auto) 0.2 % Neutrophils # (Auto) 7.0 TH/MM3 Lymphocytes # (Auto) 1.3 TH/MM3 Monocytes # (Auto) 0.9 TH/MM3 Eosinophils # (Auto) 0.0 TH/MM3 Basophils # (Auto) 0.0 TH/MM3 CBC Comment DIFF FINAL Differential Comment Blood Urea Nitrogen 12 MG/DL Creatinine 0.94 MG/DL Random Glucose 251 MG/DL Total Protein 6.4 GM/DL Albumin 3.1 GM/DL Calcium Level 8.4 MG/DL Alkaline Phosphatase 53 U/L Aspartate Amino Transf (AST/SGOT) 26 U/L Alanine Aminotransferase (ALT/SGPT) 27 U/L Total Bilirubin 0.6 MG/DL Sodium Level 133 MEQ/L Potassium Level 2.9 MEQ/L Chloride Level 96 MEQ/L Carbon Dioxide Level 29.3 MEQ/L Anion Gap 8 MEQ/L Estimat Glomerular Filtration Rate 59 ML/MIN Hemoglobin A1c 7.4 % Vitals/IOs Vital Signs Date Time Temp Pulse Resp B/P (MAP) Pulse Ox O2 Delivery O2 Flow Rate FiO2 09/09/17 06:01 99.2 52 16 148/89 (108) 96 Intake and Output 09/09/17 09/09/17 09/10/17 08:00 16:00 00:00 Intake Total 720 ml Balance 720 ml Assessment & Plan Problem List: (1) Bipolar II disorder, most recent episode major depressive ICD Codes: F31.81 - Bipolar II disorder Status: Acute (2) History of alcohol abuse ICD Codes: F10.10 - History of alcohol abuse Status: Acute (3) Isopropyl alcohol poisoning ICD Codes: T51.2X1A - Toxic effect of 2-Propanol, accidental (unintentional), initial encounter Assessment & Plan Continue current treatment plan Justification for Cont. Inpt. Patient will decompensate in a less restrictive setting Request HC Surrog/Guard Advoc?: No Armani Senior DO Sep 09, 2017 17:43
[2017-09-09 17:58] VITALS: BP 143/75; PULSE 98; RESP 16; TEMP 98.1; O2SAT 98
[2017-09-09] MEDS: MIRTAZAPINE 15 MG TAB PO SCH (20:58)
[2017-09-10 05:35] VITALS: BP 145/85; PULSE 90; RESP 17; TEMP 97.8
[2017-09-10] MEDS: INSULIN ASPART SUPPLEMENTAL SCALE SQ SCH ×4 (07:44→20:57)
[2017-09-10] MEDS ORDERED: POTASSIUM CHLORIDE 10 MEQ CONTROLLED RELEASE TAB PO ONE (07:45)
[2017-09-10] MEDS: INSULIN DETEMIR 100 UNITS/ML VIAL SQ SCH (08:58)
[2017-09-10] MEDS: REMOVE OLD NICOTINE PATCH T-DERMAL SCH (08:58)
[2017-09-10] MEDS: NICOTINE 21 MG/24 HR PATCH T-DERMAL SCH (08:58)
--- NOTE | 2017-09-10 13:16 | HHI.PR ---
Subjective Remarks Patient seen and examined Stable however not much of an appetite Otherwise exam unremarkable Objective Vitals Vital Signs Date Time Temp Pulse Resp B/P (MAP) Pulse Ox O2 Delivery O2 Flow Rate FiO2 09/10/17 05:35 97.8 90 17 145/85 (105) 09/09/17 17:58 98.1 98 16 143/75 (97) 98 I/O 09/09/17 09/09/17 09/09/17 09/10/17 09/10/17 09/10/17 07:00 15:00 23:00 07:00 15:00 23:00 Intake Total 720 ml 360 ml 720 ml Balance 720 ml 360 ml 720 ml Intake Oral 720 ml 360 ml 720 ml Result Diagram: 09/09/17 0745 09/09/17 1738 Objective Remarks GENERAL: NAD SKIN: Warm and dry. HEAD: Normocephalic. EYES: No scleral icterus. No injection or drainage. NECK: Supple, trachea midline. No JVD or lymphadenopathy. CARDIOVASCULAR: Regular rate and rhythm without murmurs, gallops, or rubs. RESPIRATORY: Breath sounds equal bilaterally. No accessory muscle use. GASTROINTESTINAL: Abdomen soft, non-tender, nondistended. MUSCULOSKELETAL: No cyanosis, or edema. BACK: Nontender without obvious deformity. No CVA tenderness. A/P Assessment and Plan 67-year-old female with Bipolar disorder with depression Suicidal ideation Management per psychiatry Overdose on rubbing alcohol Continue current conservative management Diabetes type 2 continue insulin sliding scale and long-acting Levemir Hemoglobin A1c 7.4 Acute on chronic kidney disease Improving BUN/creatinine However patient may benefit from gentle IV fluid hydration on psych med Continue to monitor BUN and creatinine avoid all nephrotoxic drugs Leukocytosis Stress reactive Chest x-ray, UA negative Monitor CBC Hypokalemia resolved status post replacement PPx:Encourage ambulation [facility] will sign off and reconsult Joselo Tejada MD Sep 10, 2017 13:16
--- NOTE | 2017-09-10 17:53 | HHI.PYPN ---
Subjective Chief Complaint: depressed suicide attempt overdose isopropyl alcohol Remarks Patient was seen and case discussed with nursing. Patient has had a brightening of affect. Her energy levels have increased and she is doing exercise in the hallways walking back and forth. Medicine continues to treat her hypokalemia. CIWA is 0. Today she denies suicidal ideation intent or plan Mental Status Examination Appearance: Appropriate, Disheveled (mildly) Consciousness: Alert Orientation: Person, Place, Date/Time Motor Activity: Other (patient somewhat unsteady with her gait she does have bruises over her left orbit and arms will have PT assess) Speech: Unremarkable Language: Adequate Fund of Knowledge: Adequate Attention and Concentration: Other (fair) Memory: Unremarkable (fair) Mood: Sad Affect: Other (brightening of affect) Thought Process & Associations: Intact Thought Content: Appropriate Hallucination Type: None Delusion Type: None Suicidal Ideation: No Suicidal Plan: No Suicidal Intention: No Homicidal Ideation: No Homicidal Plan: No Homicidal Intention: No Insight: Poor Judgment: Poor Results Vitals/IOs Vital Signs Date Time Temp Pulse Resp B/P (MAP) Pulse Ox O2 Delivery O2 Flow Rate FiO2 09/10/17 05:35 97.8 90 17 145/85 (105) 09/09/17 17:58 98 Intake and Output 09/10/17 09/10/17 09/11/17 08:00 16:00 00:00 Intake Total 720 ml Balance 720 ml Assessment & Plan Problem List: (1) Bipolar II disorder, most recent episode major depressive ICD Codes: F31.81 - Bipolar II disorder Status: Acute (2) History of alcohol abuse ICD Codes: F10.10 - History of alcohol abuse Status: Acute (3) Isopropyl alcohol poisoning ICD Codes: T51.2X1A - Toxic effect of 2-Propanol, accidental (unintentional), initial encounter Assessment & Plan Continue current treatment plan Justification for Cont. Inpt. Patient would decompensate in a less restrictive setting Request HC Surrog/Guard Advoc?: No Armani Senior DO Sep 10, 2017 17:53
[2017-09-10 18:19] VITALS: BP 145/89; PULSE 110; RESP 16; TEMP 98; O2SAT 100
[2017-09-10] MEDS: MIRTAZAPINE 15 MG TAB PO SCH (20:57)
[2017-09-11] MEDS: LORazepam 1 MG TAB PO PRN (04:49)
[2017-09-11 05:41] VITALS: BP 160/80; PULSE 60; RESP 16; TEMP 97.9; O2SAT 96
[2017-09-11 05:54] VITALS: BP 142/84; PULSE 81
[2017-09-11] MEDS: INSULIN ASPART SUPPLEMENTAL SCALE SQ SCH ×2 (08:00→11:16)
[2017-09-11] MEDS: INSULIN DETEMIR 100 UNITS/ML VIAL SQ SCH (08:47)
[2017-09-11] MEDS: NICOTINE 21 MG/24 HR PATCH T-DERMAL SCH (08:48)
[2017-09-11] MEDS: REMOVE OLD NICOTINE PATCH T-DERMAL SCH (08:48)
[2017-09-11] MEDS ORDERED: LEVEMIR SQ (15:05)
[2017-09-11] MEDS ORDERED: MIRTA15 PO (15:05)
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
--- NOTE | 2017-09-11 16:07 | PD.TTN ---
Patient Problems 1. Discharge planning 2. Medication compliance 3. Knowledge deficit 4. Lack of coping skills Progress Toward Goals Provider Present: Dr. Oli Carter Provider Input: Patient is a new admit and has yet to be evaluated. Psych Therapist Input: Counselor has yet to see patient as she is a new admission. Documentation Scribe: SINTIA Boucher Date Resolved: Sep 11, 2017 Elle DennisRae Sep 11, 2017 16:07
== END 2017-09-11 16:30 | disposition home or self-care (01) | DRG 885 ==
LOC: H260 13:15 → H250 21:15
PROVIDERS: ADMIT Psychiatry & Neurology Psychiatry; ATTEND Psychiatry & Neurology Psychiatry
DX: F31.81 Bipolar II disorder (principal); E11.22 Type 2 diabetes mellitus with diabetic chronic kidney disease; F10.10 Alcohol abuse, uncomplicated; T51.2X2A Toxic effect of 2-Propanol, intentional self-harm, initial encounter; E78.5 Hyperlipidemia, unspecified; N18.9 Chronic kidney disease, unspecified; I12.9 Hypertensive chronic kidney disease with stage 1 through stage 4 chronic kidney disease, or unspecified chronic kidney disease; E87.6 Hypokalemia; F41.9 Anxiety disorder, unspecified; D72.829 Elevated white blood cell count, unspecified; Z79.4 Long term (current) use of insulin; Z81.1 Family history of alcohol abuse and dependence; Z88.0 Allergy status to penicillin; Z88.5 Allergy status to narcotic agent; Z96.642 Presence of left artificial hip joint
CPT/HCPCS: 80053; 82948; 83036; 84132; 85025; J1815; Q0163

== ENCOUNTER 2017-10-10 06:27 | Inpatient (IN) | payer OTHER, MEDICARE ==
[~2017-10-10] VITALS: Ht 160 cm; Wt 70.0 kg
[~2017-10-10 06:27] MED LIST changes: +MIRTA15 PO
[2017-10-10 06:29] VITALS: BP 144/97; PULSE 120; RESP 18; TEMP 97.5; O2SAT 99
[2017-10-10] MEDS ORDERED: LISI2.5T3 PO (06:50)
[2017-10-10] MEDS ORDERED: LOVA10TA PO (06:50)
[2017-10-10] MEDS ORDERED: SODIUM CHLOR 0.9% 1000 ML INJ 1,000 ML IV ONE ×2 (07:30→08:45)
[2017-10-10] MEDS ORDERED: LORazepam 2 MG/ML VIAL IV PUSH ONE (07:30)
--- NOTE | 2017-10-10 07:33 | PD ---
HPI Chief Complaint: Suicide Ideation/Attempt Time Seen by Provider: 07:06 Travel History International Travel<30 days: No Contact w/Intl Traveler<30days: No Traveled to known affect area: No History of Present Illness HPI 67-year-old female complains of suicidal ideation. She drinks 8-15 beers daily including overnight. No prior attempts at self-harm aside from alcohol abuse. No HI. No fever. Pt reports a brief stay [facility] was not helpful. She states she would like to stop drinking alcohol having drink for the past 30 years. PFSH Past Medical History Hx Anticoagulant Therapy: No Arthritis: Yes Asthma: No Autoimmune Disease: No Blood Disorders: No Bipolar Disorder: Yes Anxiety: No Depression: Yes Heart Rhythm Problems: No Cancer: No Cardiovascular Problems: Yes High Cholesterol: Yes Chemotherapy: No Chest Pain: No Congestive Heart Failure: No COPD: No Cerebrovascular Accident: No Diabetes: Yes Patient Takes Glucophage: Yes (10/09/2017 1800) Diminished Hearing: No Endocrine: Yes GERD: No Genitourinary: No Headaches: Yes Hepatitis: No Hiatal Hernia: No Hypertension: Yes Immune Disorder: No Implanted Vascular Access Dvce: Yes Kidney Stones: No Musculoskeletal: No Neurologic: No Psychiatric: Yes Reproductive: No Respiratory: No Migraines: No Pneumonia: Yes Radiation Therapy: No Renal Failure: No Seizures: No Sickle Cell Disease: No Sleep Apnea: No Thyroid Disease: No Triglycerides - High: Yes Ulcer: No Tetanus Vaccination: < 5 Years Influenza Vaccination: Yes PNEUMOCCOCAL Vaccine (Year): 2009 ?: Not Menopausal: Yes Past Surgical History Abdominal Surgery: No AICD: No Arteriovenous Shunt: No Cardiac Surgery: No Ear Surgery: No Endocrine Surgery: No Eye Surgery: No Genitourinary Surgery: No Gynecologic Surgery: No Hysterectomy: Yes Insulin Pump: No Joint Replacement: Yes (LEFT HIP AND KNEE) Oral Surgery: No Pacemaker: No Thoracic Surgery: No Other Surgery: Yes ( LT HIP REPLACEMENT, LT KNEE) Social History Alcohol Use: Yes (daily) Tobacco Use: No Substance Use: No Allergies-Medications (Allergen,Severity, Reaction): Coded Allergies: codeine (Verified Allergy, Severe, Hives, 10/10/17) Penicillins (Verified Allergy, Unknown, 10/10/17) Reported Meds & Prescriptions Reported Meds & Active Scripts Active Mirtazapine 15 Mg Tab 15 Mg PO HS Reported Lovastatin 10 Mg Tab 10 Mg PO DAILY Lisinopril 2.5 Mg Tab 2.5 Mg PO DAILY Review of Systems Except as stated in HPI: all other systems reviewed are Neg General / Constitutional: No: Fever, Chills Psychiatric: Positive: Substance Abuse Physical Exam Narrative GENERAL: 67-year-old female pleasant well-nourished well-developed SKIN: Warm and dry. HEAD: Atraumatic. Normocephalic. EYES: Pupils equal and round. No scleral icterus. No injection or drainage. ENT: No nasal bleeding or discharge. Mucous membranes pink and moist. NECK: Trachea midline. No JVD. CARDIOVASCULAR: Tachycardia. Regular rhythm. RESPIRATORY: No tachypnea. Breath sounds are clear GASTROINTESTINAL: Abdomen soft, non-tender, nondistended. Hepatic and splenic margins not palpable. MUSCULOSKELETAL: Extremities without clubbing, cyanosis, or edema. No obvious deformities. NEUROLOGICAL: Cranial nerves III through XII are normal. Moving all extremities normal. Speech memory mentation normal. Cerebellar function normal PSYCHIATRIC: Patient reports suicidal ideation. No homicidal ideation. Patient suffers of alcoholism. Data Data Last Documented VS Vital Signs Date Time Temp Pulse Resp B/P (MAP) Pulse Ox O2 Delivery O2 Flow Rate FiO2 10/10/17 09:00 99 17 122/67 (85) 95 Room Air 10/10/17 06:29 97.5 Orders Orders Complete Blood Count With Diff (10/10/17 07:27) Comprehensive Metabolic Panel (10/10/17 07:27) Psych Screen (10/10/17 07:27) Lorazepam Inj (Ativan Inj) (10/10/17 07:30) Alcohol (Ethanol) (10/10/17 07:27) Sodium Chlor 0.9% 1000 Ml Inj (Ns 1000 M (10/10/17 07:30) Drug Screen, Random Urine (10/10/17 07:27) Sodium Chlor 0.9% 1000 Ml Inj (Ns 1000 M (10/10/17 08:45) Admit Order (Ed Use Only) (10/10/17 ) Router Operator Radial / Telemetry [id number] (10/10/17 09:14) Vital Signs (Adult) Q4H (10/10/17 09:14) Activity Oob With Assistance (10/10/17 09:14) Notify Dr: Other (10/10/17 09:14) Labs Laboratory Tests Test 10/10/17 07:45 White Blood Count 14.2 TH/MM3 Red Blood Count 4.20 MIL/MM3 Hemoglobin 13.4 GM/DL Hematocrit 38.5 % Mean Corpuscular Volume 91.5 FL Mean Corpuscular Hemoglobin 31.8 PG Mean Corpuscular Hemoglobin Concent 34.8 % Red Cell Distribution Width 14.8 % Platelet Count 415 TH/MM3 Mean Platelet Volume 6.8 FL Neutrophils (%) (Auto) 80.7 % Lymphocytes (%) (Auto) 7.0 % Monocytes (%) (Auto) 11.6 % Eosinophils (%) (Auto) 0.0 % Basophils (%) (Auto) 0.7 % Neutrophils # (Auto) 11.5 TH/MM3 Lymphocytes # (Auto) 1.0 TH/MM3 Monocytes # (Auto) 1.7 TH/MM3 Eosinophils # (Auto) 0.0 TH/MM3 Basophils # (Auto) 0.1 TH/MM3 CBC Comment DIFF FINAL Differential Comment Blood Urea Nitrogen 18 MG/DL Creatinine 1.14 MG/DL Random Glucose 260 MG/DL Total Protein 7.7 GM/DL Albumin 4.1 GM/DL Calcium Level 8.6 MG/DL Alkaline Phosphatase 80 U/L Aspartate Amino Transf (AST/SGOT) 37 U/L Alanine Aminotransferase (ALT/SGPT) 32 U/L Total Bilirubin 1.3 MG/DL Sodium Level 121 MEQ/L Potassium Level 4.0 MEQ/L Chloride Level 84 MEQ/L Carbon Dioxide Level 14.6 MEQ/L Anion Gap 22 MEQ/L Estimat Glomerular Filtration Rate 48 ML/MIN Ethyl Alcohol Level LESS THAN 3 MG/DL MDM Medical Decision Making Medical Screen Exam Complete: Yes Emergency Medical Condition: Yes Medical Record Reviewed: Yes Differential Diagnosis Altered mental status/psychosis due to infection/environmental exposure/ metabolic abnormality, polypharmacy, alcohol abuse/intoxication, illicit or prescribed drug abuse, malingering/secondary gain, non-organic psychiatric disease Narrative Course CBC & BMP Diagram 10/10/17 07:45 Total Protein 7.7, Albumin 4.1, Calcium Level 8.6, Alkaline Phosphatase 80, Aspartate Amino Transf (AST/SGOT) 37, Alanine Aminotransferase (ALT/SGPT) 32, Total Bilirubin 1.3 H Anion gap is 22 Alcohol level is less than 3 Suicidal ideation coupled with symptoms consistent with alcohol withdrawal syndrome is of concern. IV Ativan and normal saline administered with expected closure of anion gap on subsequent blood work. d/w Dr Jackson Critical Care Narrative Aggregate critical care time was 33 minutes. Time to perform other separately billable procedures was not included in the critical care time. My time did not include minutes spent treating any other patients simultaneously or on activities that did not directly contribute to the patient's treatment. The services I provided to this patient were to treat and/or prevent clinically significant deterioration that could result in: Arrhythmia, cardiopulmonary arrest I provided critical care services requiring my management, as noted below: Chart data review, documentation time, medication orders and management, vital sign assessments/reviewing monitor data, ordering and reviewing lab tests, ordering and interpreting/reviewing x-rays and diagnostic studies, care of the patient and discussion of the patient with the admitting physicians. Diagnosis Primary Impression: Alcohol withdrawal Qualified Codes: F10.239 - Alcohol dependence with withdrawal, unspecified Additional Impressions: Major depression, recurrent Qualified Codes: F33.2 - Major depressive disorder, recurrent severe without psychotic features Hyponatremia History of alcohol abuse Increased anion gap metabolic acidosis Admitting Information Admitting Physician Requests: Agusto Stroud MD Oct 10, 2017 07:32
[2017-10-10 08:08] LABS: AUTOMATED NEUTROPHIL # 11.5 TH/MM3 (1.8-7.7); BASOPHIL # 0.1 TH/MM3 (0-0.2); BASOPHIL % 0.7 % (0.0-2.0); HEMATOCRIT 38.5 % (35.0-46.0); HEMOGLOBIN 13.4 GM/DL (11.6-15.3); MEAN CELL VOLUME 91.5 FL (80.0-100.0); MEAN CORPUSCULAR HEMOGLOBIN 31.8 PG (27.0-34.0); MEAN CORPUSCULAR HGB CONC 34.8 % (32.0-36.0); MEAN PLATELET VOLUME 6.8 FL (7.0-11.0); MONO % 11.6 % (0.0-8.0); MONOCYTE # 1.7 TH/MM3 (0-0.9); NEUT % 80.7 % (16.0-70.0); PLATELET COUNT 415 TH/MM3 (150-450); RED CELL DISTRIBUTION WIDTH 14.8 % (11.6-17.2); WHITE BLOOD COUNT 14.2 TH/MM3 (4.0-11.0)
[2017-10-10 08:34] LABS: ALBUMIN 4.1 GM/DL (3.4-5.0); ALKALINE PHOSPHATASE 80 U/L (45-117); ALT (GPT) 32 U/L (10-53); AST (GOT) 37 U/L (15-37); BICARBONATE 14.6 MEQ/L (21.0-32.0); BLOOD UREA NITROGEN 18 MG/DL (7-18); CALCIUM 8.6 MG/DL (8.5-10.1); CHLORIDE 84 MEQ/L (98-107); CREATININE 1.14 MG/DL (0.50-1.00); GLOMERULAR FILTRATION RATE 48 ML/MIN (>89); GLUCOSE,RANDOM 260 MG/DL (74-106); TOTAL BILIRUBIN ADULT 1.3 MG/DL (0.2-1.0); TOTAL PROTEIN 7.7 GM/DL (6.4-8.2)
[2017-10-10 08:36] LABS: SODIUM (NA) 121 MEQ/L (136-145)
[2017-10-10 09:00] VITALS: BP 122/67; PULSE 99; RESP 17; O2SAT 95
[2017-10-10] MEDS ORDERED: ONDANSETRON HCL 4 MG/2 ML VIAL IVP PRN (09:30)
[2017-10-10] MEDS ORDERED: MAGNESIUM HYDROXIDE SUSP 30 ML CUP PO PRN (09:30)
[2017-10-10] MEDS ORDERED: NALOXONE HCL 0.4 MG/ML AMP IV PUSH PRN (09:30)
[2017-10-10] MEDS ORDERED: LACTULOSE SYRUP 20 GM/30 ML CUP PO PRN (09:30)
[2017-10-10] MEDS ORDERED: SENNOSIDES 8.6 MG TAB PO PRN (09:30)
[2017-10-10] MEDS ORDERED: BISACODYL 10 MG SUPP RECTAL PRN (09:30)
[2017-10-10] MEDS ORDERED: SODIUM CHLORIDE 0.9% FLUSH 10 ML FLUSH IV FLUSH PRN (09:30)
[2017-10-10] MEDS ORDERED: ACETAMINOPHEN 325 MG TAB PO PRN (09:30)
--- NOTE | 2017-10-10 09:42 | HHI.HP ---
[facility] Heather Sullivan MD Admission Diagnosis CELESTE, SI, HypoNa Diagnoses: Chief Complaint: Hyponatremia, alcoholism Travel History International Travel<30 Days: No Contact w/Intl Traveler <30 Da: No Traveled to Known Affected Are: No History of Present Illness Ms. Wright is a pleasant 67-year-old female with a history of depression, diabetes and alcoholism who presents to the emergency department due to suicidal ideations. Patient reports drinking 18 beers a day area at the time of this interview she denies any suicidal or homicidal ideations. She recently was at [facility]. She wants to get off alcohol. She denies any chest pain, shortness of breath, fever or chills. Denies any headache, vision changes. Denies any abdominal pain. Denies any changes in bowel or bladder habits. ED workup indicated hyponatremia with sodium 121. Review of Systems Except as stated in HPI: all other systems reviewed are Neg Past Family Social History Past Medical History Bipolar disorder, depression, hyperlipidemia, diabetes mellitus, hypertension Past Surgical History Left hip and knee surgery. Left hip replacement, hysterectomy Reported Medications Mirtazapine 15 Mg Tab 15 Mg PO HS Reported Lovastatin 10 Mg Tab 10 Mg PO DAILY Lisinopril 2.5 Mg Tab 2.5 Mg PO DAILY Allergies: Coded Allergies: codeine (Verified Allergy, Severe, Hives, 10/10/17) Penicillins (Verified Allergy, Unknown, 10/10/17) Family History No family history of heart disease, Alzheimer's or Parkinson's. Social History Patient reports drinking 18 beers a day. Denies using tobacco or illicit drugs. Physical Exam Vital Signs Vital Signs Date Time Temp Pulse Resp B/P (MAP) Pulse Ox O2 Delivery O2 Flow Rate FiO2 10/10/17 09:00 99 17 122/67 (85) 95 Room Air 10/10/17 06:47 16 10/10/17 06:29 97.5 120 18 144/97 (113) 99 Room Air Physical Exam GENERAL: This is a well-nourished, well-developed patient, in no apparent distress. SKIN: No rashes, ecchymoses or lesions. Warm and dry. HEAD: Atraumatic. Normocephalic. No temporal or scalp tenderness. EYES: Pupils equal round and reactive. No injection or drainage. ENT: Nose without bleeding, purulent drainage or septal hematoma. Airway patent. NECK: Trachea midline. No lymphadenopathy. Supple, nontender, no meningeal signs. CARDIOVASCULAR: Regular rate and rhythm without murmurs, gallops, or rubs. No JVD. RESPIRATORY: Clear to auscultation. Breath sounds equal bilaterally. No wheezes , rales, or rhonchi. GASTROINTESTINAL: Abdomen soft, non-tender, nondistended. No guarding. MUSCULOSKELETAL: Extremities without clubbing, cyanosis, or edema. NEUROLOGICAL: Awake and alert. Cranial nerves II through XII intact. No focal neurological deficits. Normal speech. Laboratory Laboratory Tests Test 10/10/17 07:45 White Blood Count 14.2 Red Blood Count 4.20 Hemoglobin 13.4 Hematocrit 38.5 Mean Corpuscular Volume 91.5 Mean Corpuscular Hemoglobin 31.8 Mean Corpuscular Hemoglobin Concent 34.8 Red Cell Distribution Width 14.8 Platelet Count 415 Mean Platelet Volume 6.8 Neutrophils (%) (Auto) 80.7 Lymphocytes (%) (Auto) 7.0 Monocytes (%) (Auto) 11.6 Eosinophils (%) (Auto) 0.0 Basophils (%) (Auto) 0.7 Neutrophils # (Auto) 11.5 Lymphocytes # (Auto) 1.0 Monocytes # (Auto) 1.7 Eosinophils # (Auto) 0.0 Basophils # (Auto) 0.1 CBC Comment DIFF FINAL Differential Comment Blood Urea Nitrogen 18 Creatinine 1.14 Random Glucose 260 Total Protein 7.7 Albumin 4.1 Calcium Level 8.6 Alkaline Phosphatase 80 Aspartate Amino Transf (AST/SGOT) 37 Alanine Aminotransferase (ALT/SGPT) 32 Total Bilirubin 1.3 Sodium Level 121 Potassium Level 4.0 Chloride Level 84 Carbon Dioxide Level 14.6 Anion Gap 22 Estimat Glomerular Filtration Rate 48 Ethyl Alcohol Level LESS THAN 3 Result Diagram: 10/10/17 0745 10/10/17 0745 Caprini VTE Risk Assessment Caprini VTE Risk Assessment: Mod/High Risk (score >= 2) Caprini Risk Assessment Model Point Value = 1 Point Value = 2 Point Value = 3 Point Value = 5 Age 41-60 Minor surgery BMI > 25 kg/m2 Swollen legs Varicose veins or History of unexplained or recurrent spontaneous Oral contraceptives or hormone replacement Sepsis (< 1 month) Serious lung disease, including pneumonia (< 1 month) Abnormal pulmonary function Acute myocardial infarction Congestive heart failure (< 1 month) History of inflammatory bowel disease Medical patient at bed rest Age 61-74 Arthroscopic surgery Major open surgery (> 45 min) Laparoscopic surgery (> 45 min) Malignancy Confined to bed (> 72 hours) Immobilizing plaster cast Central venous access Age >= 75 History of VTE Family history of VTE Factor V Leiden Prothrombin [id number] Lupus anticoagulant Anticardiolipin antibodies Elevated serum homocysteine Heparin-induced thrombocytopenia Other congenital or acquired thrombophilia Stroke (< 1 month) Elective arthroplasty Hip, pelvis, or leg fracture Acute spinal cord injury (< 1 month) Prophylaxis Regimen Total Risk Factor Score Risk Level Prophylaxis Regimen 0-1 Low Early ambulation 2 Moderate Order ONE of the following: *Sequential Compression Device (SCD) *Heparin 5000 units SQ BID 3-4 Higher Order ONE of the following medications: *Heparin 5000 units SQ TID *Enoxaparin/Lovenox 40 mg SQ daily (WT < 150 kg, CrCl > 30 mL/min) *Enoxaparin/Lovenox 30 mg SQ daily (WT < 150 kg, CrCl > 10-29 mL/min) *Enoxaparin/Lovenox 30 mg SQ BID (WT < 150 kg, CrCl > 30 mL/min) AND/OR *Sequential Compression Device (SCD) 5 or more Highest Order ONE of the following medications: *Heparin 5000 units SQ TID (Preferred with Epidurals) *Enoxaparin/Lovenox 40 mg SQ daily (WT < 150 kg, CrCl > 30 mL/min) *Enoxaparin/Lovenox 30 mg SQ daily (WT < 150 kg, CrCl > 10-29 mL/min) *Enoxaparin/Lovenox 30 mg SQ BID (WT < 150 kg, CrCl > 30 mL/min) AND *Sequential Compression Device (SCD) Assessment and Plan Problem List: (1) Hyponatremia ICD Code: E87.1 - Hypo-osmolality and hyponatremia Status: Acute (2) Alcohol abuse ICD Code: F10.10 - Alcohol abuse, uncomplicated (3) Depression ICD Code: F32.9 - Major depressive disorder, single episode, unspecified (4) Diabetes mellitus ICD Code: E11.9 - Type 2 diabetes mellitus without complications Assessment and Plan Ms. Wright is a 67-year-old female with a history of depression, alcoholism who presents to the emergency department due to suicidal ideations. During workup patient's sodium was noted to be 121. - Severe hyponatremia - Patient is likely hypovolemic due to lack of proper eating and drinking water. - We'll continue normal saline at 100 cc per hour. - We'll check sodium level this afternoon. Goal sodium correction rate 6-8 per 24 hours. - Counseled patient regarding alcohol abuse which can directly contribute to hyponatremia. - Diabetes mellitus - Blood glucose 260 on admission. - We'll start patient on Levemir 10 units daily at bedtime and sliding scale insulin. - May need to add pre-meal insulin 3-5 units TIDAC. - Mild KEVIN - Creatinine 1.14. Likely due to volume depletion. We will continue to monitor. Avoid Nephrotoxins. - Depression - Suicidal ideations - We'll consult psychiatry. Initiate citalopram 24 hours while patient is on the medical floor. - Alcoholism - We'll initiate CIWA protocol. - Also start Librium 25mg TID Full code. Lovenox. Physician Certification 2 Midnight Certification Type: Admission for Inpatient Services Order for Inpatient Services The services are ordered in accordance with Medicare regulations or non- Medicare payer requirements, as applicable. In the case of services not specified as inpatient-only, they are appropriately provided as inpatient services in accordance with the 2-midnight benchmark. Estimated LOS (days): 2 days is the estimated time the patient will need to remain in the hospital, assuming treatment plan goals are met and no additional complications. Post-Hospital Plan: Not yet determined Chip Jackson DO Oct 10, 2017 09:42
[2017-10-10] MEDS ORDERED: FLUMAZENIL 0.5 MG/5 ML VIAL IV PUSH PRN (10:30)
[2017-10-10] MEDS ORDERED: LORazepam 2 MG/ML VIAL IV PUSH PRN ×4 (10:30)
[2017-10-10] MEDS ORDERED: LORazepam 2 MG TAB PO PRN (10:30)
[2017-10-10] MEDS ORDERED: LORazepam 1 MG TAB PO PRN (10:30)
[2017-10-10] MEDS ORDERED: SODIUM CHLOR 0.9% 1000 ML INJ 1,000 ML IV SCH (11:00)
[2017-10-10] MEDS ORDERED: ENOXAPARIN SODIUM 40 MG/0.4 ML SYRINGE SQ SCH (11:00)
[2017-10-10] MEDS ORDERED: DEXTROSE 50% IN WATER 50 ML VIAL(D50) IV PUSH PRN (12:30)
[2017-10-10] MEDS ORDERED: GLUCAGON 1 MG/ML VIAL OTHER PRN (12:30)
[2017-10-10] MEDS ORDERED: chlordiazePOXIDE 25 MG CAP PO SCH (13:00)
--- NOTE | 2017-10-10 14:27 | PD.PSY.CON ---
Provisional Diagnosis Admission Date Oct 10, 2017 at 09:16 History of Present Illness Service Psychiatry Consult Requested By ER team Reason for Consult Suicidal ideation Primary Care Physician Heather Sullivan MD HPI The patient is a 67-year-old woman, domiciled alone in her apartment [place], , unemployed, supported by Social Security benefits, with psychiatric history of depression, bipolar disorder, severe alcohol use disorder , 6 previous psychiatric hospitalizations, last hospitalization here at [facility] in September 2017, non compliance with medications, documentation reviewed, previous suicidal attempts, multiple ER visits due to alcohol use disorder, patient has history of alcohol withdrawal, past medical history significant for diabetes, hypertension, who presents to the emergency department due to suicidal ideations. Patient reports drinking 18 beers a day area at the time of this interview she denies any suicidal or homicidal ideations. She recently was at [facility]. She wants to get off alcohol. She denies any chest pain, shortness of breath, fever or chills. Denies any headache, vision changes. Denies any abdominal pain. Denies any changes in bowel or bladder habits. ED workup indicated hyponatremia with sodium 121. Admitted in observation fro severe hyponathremia and diabetes decompensation. On psychiatric evaluation patient hypoactive, distant, minimally communicative, endorsing symptoms of depression, says that she doesn' t have any reason to live for, or her family , she cannot get rid of using alcohol every day, she lost her job recently. She says that she has been drinking alcohol every day and thinking about committing suicide, she drinks 12- 16 beers per day started very early in the morning. Patient says that "if I would not be here right now, I would be jumping off a bridge or overdosing again ". Patient is irritable, tearful during the evaluation. Denies homicidal ideation, denies visual and auditory hallucinations. Patient is oriented 3, no attention deficit, no fluctuation of consciousness, no withdrawal symptoms reported or observed at this moment. Past Family Social History Coded Allergies: codeine (Verified Allergy, Severe, Hives, 10/10/17) Penicillins (Verified Allergy, Unknown, 10/10/17) Active Scripts Mirtazapine (Mirtazapine) 15 Mg Tab, 15 MG PO HS for health, #30 TAB 0 Refills Prov:Dante Carter MD 09/11/17 Reported Medications Lovastatin (Lovastatin) 10 Mg Tab, 10 MG PO DAILY for Cholesterol Management, # 30 TAB 0 Refills 10/10/17 Lisinopril (Lisinopril) 2.5 Mg Tab, 2.5 MG PO DAILY, #30 TAB 0 Refills 10/10/17 Discontinued Scripts Insulin Detemir Inj (Levemir Inj) 1,000 unit/ 10 ML Vial, 15 UNITS SQ DAILY for health, #1 VIAL 0 Refills Do not mix with any other Insulin. Prov:Dante Carter MD 09/11/17 Sodium Chloride Flush (Normal Saline Flush) 0.9 % Inj, 100 ML IV CONTINUOUS for fluids, #1 LITER Prov:Valerio Mac DO 09/07/17 Insulin Detemir Inj (Levemir Inj) 1,000 unit/ 10 ML Vial, 15 UNITS SQ DAILY for Blood Sugar Management, #10 INJECTION Do not mix with any other Insulin. Prov:Valerio Mac DO 09/07/17 Insulin Aspart Inj (Novolog Inj) 1,000 Unit/10 Ml Vial, 1-9 UNITS SQ ACHS for Blood Sugar Management, #10 ML 0 Refills Max dose at bedtime:( )units; sugars less than 70,(0)units; sugars 150-199,(1) unit; sugars 200-249,(3) units; sugars 250-299,(5) units; sugars 300-349,(7) units; sugars greater than 349,(9) units Prov:Valerio Mac DO 09/07/17 Flumazenil (Flumazenil) 0.1 Mg/Ml Inj, 0.2 MG IV PUSH Q1M Y for SEE LABEL COMMENTS, #1 INJECTION Prov:Valerio Mac DO 09/07/17 [LORazepam INJ] 2 MG/ML INJ No Conflict Check, 2 MG IV PUSH Q1H Y for CIWA 15-20 , #1 Prov:Valerio Mac DO 09/07/17 [LORazepam INJ] 2 MG/ML INJ No Conflict Check, 2 MG IV PUSH Q2H Y for CIWA 11-14 , #1 Prov:Valerio Mac DO 09/07/17 [LORazepam INJ] 2 MG/ML INJ No Conflict Check, 1 MG IV PUSH Q4H Y for CIWA 8 - 10, #1 Prov:Valerio Mac DO 09/07/17 Lorazepam (Ativan) 2 Mg Tab, 2 MG PO Q2H Y for CIWA 11-14, #1 TAB Prov:Valerio Mac DO 09/07/17 Lorazepam (Ativan) 1 Mg Tab, 1 MG PO Q4H Y for CIWA 8 - 10, #1 TAB Prov:Valerio Mac DO 09/07/17 [LORazepam INJ] 2 MG/ML INJ No Conflict Check, 2 MG IV PUSH Q15M Y for CIWA > 20 , #1 Prov:Valerio Mac DO 09/07/17 Current Medications Medications (Trade) Dose Ordered Sig/Gia Route Start Time Stop Time Status Last Admin Sodium Chloride 1,000 ml @ 100 mls/hr Q10H IV 10/10/17 11:00 10/10/17 12:19 (NS Flush) 2 ml UNSCH PRN IV FLUSH 10/10/17 09:30 (NS Flush) 2 ml BID IV FLUSH 10/10/17 21:00 (Tylenol) 650 mg Q4H PRN PO 10/10/17 09:30 (Zofran Inj) 4 mg Q6H PRN IVP 10/10/17 09:30 (Lovenox Inj) 40 mg Q24H SQ 10/10/17 11:00 10/10/17 12:21 (Narcan Inj) 0.4 mg UNSCH PRN IV PUSH 10/10/17 09:30 (Milk Of Magnesia Liq) 30 ml Q12H PRN PO 10/10/17 09:30 (Senokot) 17.2 mg Q12H PRN PO 10/10/17 09:30 (Dulcolax Supp) 10 mg DAILY PRN RECTAL 10/10/17 09:30 (Lactulose Liq) 30 ml DAILY PRN PO 10/10/17 09:30 (Romazicon Inj) 0.2 mg Q1M PRN IV PUSH 10/10/17 10:30 (Ativan) 1 mg Q4H PRN PO 10/10/17 10:30 (Ativan Inj) 1 mg Q4H PRN IV PUSH 10/10/17 10:30 (Ativan) 2 mg Q2H PRN PO 10/10/17 10:30 (Ativan Inj) 2 mg Q2H PRN IV PUSH 10/10/17 10:30 (Ativan Inj) 2 mg Q1H PRN IV PUSH 10/10/17 10:30 (Ativan Inj) 2 mg Q15M PRN IV PUSH 10/10/17 10:30 (Levemir Inj) 10 units HS SQ 10/10/17 21:00 (D50w (Vial) Inj) 50 ml UNSCH PRN IV PUSH 10/10/17 12:30 (Glucagon Inj) 1 mg UNSCH PRN OTHER 10/10/17 12:30 (NovoLOG SUPPLEMENTAL SCALE) 1 ACHS SLIDING SCALE SQ 10/10/17 17:00 (Librium) 25 mg TID PO 10/10/17 13:00 Social History Patient was born and raised in [place], she lives in [place] alone, she is single, has no kids, unemployed, supported by Social Security, her highest level of education is high school, Physical Exam Vital Signs Vital Signs Date Time Temp Pulse Resp B/P (MAP) Pulse Ox O2 Delivery O2 Flow Rate FiO2 10/10/17 09:00 99 17 122/67 (85) 95 Room Air 10/10/17 06:29 97.5 Lab Results Test 10/10/17 07:45 10/10/17 11:50 White Blood Count 14.2 TH/MM3 Red Blood Count 4.20 MIL/MM3 Hemoglobin 13.4 GM/DL Hematocrit 38.5 % Mean Corpuscular Volume 91.5 FL Mean Corpuscular Hemoglobin 31.8 PG Mean Corpuscular Hemoglobin Concent 34.8 % Red Cell Distribution Width 14.8 % Platelet Count 415 TH/MM3 Mean Platelet Volume 6.8 FL Neutrophils (%) (Auto) 80.7 % Lymphocytes (%) (Auto) 7.0 % Monocytes (%) (Auto) 11.6 % Eosinophils (%) (Auto) 0.0 % Basophils (%) (Auto) 0.7 % Neutrophils # (Auto) 11.5 TH/MM3 Lymphocytes # (Auto) 1.0 TH/MM3 Monocytes # (Auto) 1.7 TH/MM3 Eosinophils # (Auto) 0.0 TH/MM3 Basophils # (Auto) 0.1 TH/MM3 CBC Comment DIFF FINAL Differential Comment Blood Urea Nitrogen 18 MG/DL Creatinine 1.14 MG/DL Random Glucose 260 MG/DL Total Protein 7.7 GM/DL Albumin 4.1 GM/DL Calcium Level 8.6 MG/DL Alkaline Phosphatase 80 U/L Aspartate Amino Transf (AST/SGOT) 37 U/L Alanine Aminotransferase (ALT/SGPT) 32 U/L Total Bilirubin 1.3 MG/DL Sodium Level 121 MEQ/L Potassium Level 4.0 MEQ/L Chloride Level 84 MEQ/L Carbon Dioxide Level 14.6 MEQ/L Anion Gap 22 MEQ/L Estimat Glomerular Filtration Rate 48 ML/MIN Serum Osmolality 279 MOSM/KG Ethyl Alcohol Level LESS THAN 3 MG/DL Urine Osmolality 243 MOSM/KG Mental Status Examination Appearance: Appropriate Consciousness: Alert Orientation: x4 Motor Activity: Normal gait Speech: Unremarkable Language: Adequate Fund of Knowledge: Adequate Attention and Concentration: Adequate Memory: Unremarkable Mood: Angry, Sad Affect: Irritable Thought Process & Associations: Intact Thought Content: Appropriate Hallucination Type: None Delusion Type: None Suicidal Ideation: Yes Suicidal Plan: Yes Suicidal Intention: No Homicidal Ideation: No Homicidal Plan: No Homicidal Intention: No Insight: Poor Judgment: Poor Assessment & Plan Problem List: (1) Bipolar II disorder, most recent episode major depressive ICD Codes: F31.81 - Bipolar II disorder Status: Acute Assessment & Plan: On psychiatric evaluation the patient presents with severe symptoms of depression in the context of non compliance with medications and continues alcohol use. Patient reports anhedonia, lack of control in using alcohol, persistent suicidal thoughts and sadness. Patient has previous suicidal attempts, increased alcohol use, no identifiable protective factors, recent hospitalizations, recent suicidal attempts and active ideation. Patient has an increased risk of danger to herself at this moment and she needs psychiatric hospitalization for stabilization. She has a very increased risk of alcohol withdrawal. Will order CIWA protocol. MTV, b12, folate. No additional psychotropics at the moment. Patient needs psychiatric admission for stabilization and safety. Continue 1:1 sitter in the floor and ER for safety. Motivation support and psychoeducation provided. Case discussed with medical student Giovana and nurse in charge. Transfer to psychiatric once medically stable. Could be appropriate for med/psy. Assessment & Plan Estimated LOS: Constantine Amaro MD Oct 10, 2017 14:27
[2017-10-10] MEDS ORDERED: FOLIC ACID 1 MG TAB PO SCH (16:00)
[2017-10-10] MEDS ORDERED: THIAMINE INJ 100 MG in SODIUM CHLORIDE 0.9% INJ 100 ML IV SCH (16:00)
[2017-10-10 16:15] LABS: BICARBONATE 22.9 MEQ/L (21.0-32.0); BLOOD UREA NITROGEN 14 MG/DL (7-18); CALCIUM 8.1 MG/DL (8.5-10.1); CHLORIDE 95 MEQ/L (98-107); CREATININE 0.95 MG/DL (0.50-1.00); GLOMERULAR FILTRATION RATE 59 ML/MIN (>89); GLUCOSE,RANDOM 189 MG/DL (74-106); SODIUM (NA) 130 MEQ/L (136-145)
[2017-10-10] MEDS ORDERED: INSULIN ASPART SUPPLEMENTAL SCALE SQ SCH (17:00)
[2017-10-10] MEDS ORDERED: INSULIN DETEMIR 100 UNITS/ML VIAL SQ SCH (21:00)
[2017-10-10] MEDS ORDERED: SODIUM CHLORIDE 0.9% FLUSH 10 ML FLUSH IV FLUSH SCH (21:00)
== END 2017-10-10 17:47 | DRG 641 ==
LOC: NEPE 06:27 → NEDA 09:16
PROVIDERS: ADMIT Hospitalist; ATTEND Hospitalist
DX: E87.1 Hypo-osmolality and hyponatremia (principal); E86.1 Hypovolemia; N17.9 Acute kidney failure, unspecified; R45.851 Suicidal ideations; E11.65 Type 2 diabetes mellitus with hyperglycemia; F31.81 Bipolar II disorder; Z79.84 Long term (current) use of oral hypoglycemic drugs; Z91.14 Patient's other noncompliance with medication regimen; F10.20 Alcohol dependence, uncomplicated; I10 Essential (primary) hypertension; E78.5 Hyperlipidemia, unspecified; Z96.642 Presence of left artificial hip joint; Z96.652 Presence of left artificial knee joint
CPT/HCPCS: 80048; 80053; 80307; 83036; 83930; 83935; 85025; 96361; 96374; J1650; J2060; J7030

== ENCOUNTER 2017-10-10 16:31 | Inpatient (IN) | payer OTHER, MEDICARE ==
[~2017-10-10 16:31] MED LIST changes: +LISI2.5T3 PO; +LOVA10TA PO
[2017-10-10 18:27] VITALS: BP 124/59; PULSE 104; RESP 20; TEMP 98.4; O2SAT 97
[2017-10-10 19:22] VITALS: O2SAT 91
[2017-10-11] MEDS ORDERED: LORazepam 1 MG TAB PO PRN (03:30)
[2017-10-11] MEDS ORDERED: LORazepam 2 MG TAB PO PRN (03:30)
[2017-10-11] MEDS ORDERED: LORazepam 2 MG/ML VIAL IV PUSH PRN ×4 (03:30)
[2017-10-11] MEDS ORDERED: FLUMAZENIL 0.5 MG/5 ML VIAL IV PUSH PRN (03:30)
[2017-10-11] MEDS ORDERED: ALUMINUM/MAGNESIUM/SIMETH 30 ML CUP PO PRN (03:45)
[2017-10-11] MEDS ORDERED: diphenhydrAMINE HCL 50 MG/ML VIAL - HS PRN IM (03:45)
[2017-10-11] MEDS ORDERED: diphenhydrAMINE HCL 50 MG CAP - HS PRN PO (03:45)
[2017-10-11] MEDS: SODIUM CHLOR 0.9% 1000 ML INJ 1,000 ML IV SCH ×3 (03:45→23:45)
[2017-10-11] MEDS ORDERED: GLUCAGON 1 MG/ML VIAL OTHER PRN (03:45)
[2017-10-11] MEDS ORDERED: DEXTROSE 50% IN WATER 50 ML VIAL(D50) IV PUSH PRN (03:45)
[2017-10-11] MEDS ORDERED: LORazepam 2 MG/ML VIAL - age > 65 yrs IM PRN (03:45)
[2017-10-11] MEDS ORDERED: ACETAMINOPHEN 325 MG TAB PO PRN (03:45)
[2017-10-11] MEDS ORDERED: LORazepam 0.5 MG TAB age > 65 yrs PO PRN (03:45)
[2017-10-11] MEDS ORDERED: MAGNESIUM HYDROXIDE SUSP 30 ML CUP PO PRN (03:45)
[2017-10-11 07:05] VITALS: BP 114/59; PULSE 80; RESP 16; TEMP 98.2
[2017-10-11] MEDS: FOLIC ACID 1 MG TAB PO SCH (08:23)
[2017-10-11] MEDS: ENOXAPARIN SODIUM 40 MG/0.4 ML SYRINGE SQ SCH (08:23)
[2017-10-11] MEDS: LOW DOSE INSULIN NOVOLOG SUPPLEMENTAL SCALE SQ SCH ×4 (08:23→20:49)
[2017-10-11] MEDS: NICOTINE 21 MG/24 HR PATCH T-DERMAL SCH (08:24)
[2017-10-11 11:15] LABS: BICARBONATE 22.3 MEQ/L (21.0-32.0); BLOOD UREA NITROGEN 9 MG/DL (7-18); CALCIUM 7.8 MG/DL (8.5-10.1); CHLORIDE 100 MEQ/L (98-107); CHOLESTEROL 166 MG/DL (120-200); CREATININE 0.89 MG/DL (0.50-1.00); GLOMERULAR FILTRATION RATE 63 ML/MIN (>89); GLUCOSE,RANDOM 151 MG/DL (74-106); SODIUM (NA) 133 MEQ/L (136-145)
[2017-10-11 11:17] LABS: CHOLESTEROL/ HDL RATIO 3.07 RATIO; LDL CHOLESTEROL 81 MG/DL (0-99); TRIGLYCERIDES 154 MG/DL (42-150)
--- NOTE | 2017-10-11 11:40 | HHI.HP ---
Provisional Diagnosis Admission Date Oct 10, 2017 at 17:49 Media I. Bipolar disorder type II, depressive episode, , Alcohol use disorder Media II. Deferred Certification of Person's Competence To Provide Express and Informed Consent I have personally examined Araceli Wright , a person being served at [facility] on, Oct 11, 2017 11:33. Express and informed consent means consent voluntarily given in writing, by a competent person, after sufficient explanation and disclosure of the subject matter involved to enable the person to make a knowing and willful decision without any element of force, fraud, deceit, duress, or other form of constraint or coercion. This person is 18 years of age or older, is not now known to be incompetent to consent to treatment with a guardian advocate, and does not have a health care surrogate or proxy currently making medical treatment decisions. I have found this person to be one of the following: [x] Competent to provide express and informed consent, as defined above, for voluntary admission to this facility and is competent to provide express and informed consent for treatment. He/she has the consistent capacity to make well reasoned, willful, and knowing decisions concerning his or her medical or mental health treatment. The person fully and consistently understands the purpose of the admission for examination/placement and is fully capable of personally exercising all rights assured under [place] [] Incompetent to provide express and informed consent to voluntary admission, and this is incompetent to provide express and informed consent to treatment. The person must be transferred to involuntary status and a petition for a guardian advocate filed with the Circuit Court. [] Refusing to provide express and informed consent to voluntary admission but is competent to provide express and informed consent for treatment. The person must be discharged or transferred to involuntary status. Form shall be completed within 24 hours of a person's arrival at the receiving facility and filed in the clinical record of each person: 1. Admitted on a voluntary basis 2. Permitted to provide express and informed consent to his/her own treatment 3. Allowed to transfer from involuntary to voluntary status 4. Prior to permitting a person to consent to his or her own treatment after having been previously found incompetent to consent to treatment. History of Present Illness Capacity: Has Capacity HPI 10/10/2017 The patient is a 67-year-old woman, domiciled alone in her apartment [place], , unemployed, supported by Social Security benefits, with psychiatric history of depression, bipolar disorder, severe alcohol use disorder, 6 previous psychiatric hospitalizations, last hospitalization here at [facility] in September 2017, non compliance with medications, documentation reviewed, previous suicidal attempts, multiple ER visits due to alcohol use disorder, patient has history of alcohol withdrawal, past medical history significant for diabetes, hypertension, who presents to the emergency department due to suicidal ideations. Patient reports drinking 18 beers a day area at the time of this interview she denies any suicidal or homicidal ideations. She recently was at [facility]. She wants to get off alcohol. She denies any chest pain, shortness of breath, fever or chills. Denies any headache, vision changes. Denies any abdominal pain. Denies any changes in bowel or bladder habits. ED workup indicated hyponatremia with sodium 121. Admitted in observation fro severe hyponathremia and diabetes decompensation. On psychiatric evaluation patient hypoactive, distant, minimally communicative, endorsing symptoms of depression, says that she doesn' t have any reason to live for, or her family , she cannot get rid of using alcohol every day, she lost her job recently. She says that she has been drinking alcohol every day and thinking about committing suicide, she drinks 12- 16 beers per day started very early in the morning. Patient says that "if I would not be here right now, I would be jumping off a bridge or overdosing again ". Patient is irritable, tearful during the evaluation. Denies homicidal ideation, denies visual and auditory hallucinations. Patient is oriented 3, no attention deficit, no fluctuation of consciousness, no withdrawal symptoms reported or observed at this moment. 10/11/2017 patient was seen today for psychiatric reevaluation. Chart was reviewed. Case discussed with nursing charge, social services manager/therapist. On psychiatric evaluation patient reports depressive symptoms, patient says that she has been feeling down, not finding meaning in life, she feels that she has nothing to live for. She reports hopelessness, helplessness, and persistent suicidal thoughts, no plan or intentions at this moment. Patient also reports continue use of alcohol. Denies the use of other drugs. The patient is fully oriented 3, no attention deficit, no fluctuation of consciousness. She denies homicidal ideation, she denies visual and auditory hallucinations. Review of Systems Psychiatric: COMPLAINS OF: Depression, Suicidal Ideation Except as stated in HPI: all other systems reviewed are Neg Substance Abuse History Drugs/Alcohol past 12 months She drinks 8-12 beers per day Past Family Social History Coded Allergies: codeine (Verified Allergy, Severe, Hives, 10/10/17) Penicillins (Verified Allergy, Unknown, 10/10/17) Active Scripts Mirtazapine (Mirtazapine) 15 Mg Tab, 15 MG PO HS for health, #30 TAB 0 Refills Prov:Dante Carter MD 09/11/17 Reported Medications Lovastatin (Lovastatin) 10 Mg Tab, 10 MG PO DAILY for Cholesterol Management, # 30 TAB 0 Refills 10/10/17 Lisinopril (Lisinopril) 2.5 Mg Tab, 2.5 MG PO DAILY, #30 TAB 0 Refills 10/10/17 Discontinued Scripts Insulin Detemir Inj (Levemir Inj) 1,000 unit/ 10 ML Vial, 15 UNITS SQ DAILY for health, #1 VIAL 0 Refills Do not mix with any other Insulin. Prov:Dante Carter MD 09/11/17 Sodium Chloride Flush (Normal Saline Flush) 0.9 % Inj, 100 ML IV CONTINUOUS for fluids, #1 LITER Prov:Valerio Mac DO 09/07/17 Insulin Detemir Inj (Levemir Inj) 1,000 unit/ 10 ML Vial, 15 UNITS SQ DAILY for Blood Sugar Management, #10 INJECTION Do not mix with any other Insulin. Prov:Valerio Mac DO 09/07/17 Insulin Aspart Inj (Novolog Inj) 1,000 Unit/10 Ml Vial, 1-9 UNITS SQ ACHS for Blood Sugar Management, #10 ML 0 Refills Max dose at bedtime:( )units; sugars less than 70,(0)units; sugars 150-199,(1) unit; sugars 200-249,(3) units; sugars 250-299,(5) units; sugars 300-349,(7) units; sugars greater than 349,(9) units Prov:Valerio Mac DO 09/07/17 Flumazenil (Flumazenil) 0.1 Mg/Ml Inj, 0.2 MG IV PUSH Q1M Y for SEE LABEL COMMENTS, #1 INJECTION Prov:Valerio Mac DO 09/07/17 [LORazepam INJ] 2 MG/ML INJ No Conflict Check, 2 MG IV PUSH Q1H Y for CIWA 15-20 , #1 Prov:Valerio Mac DO 09/07/17 [LORazepam INJ] 2 MG/ML INJ No Conflict Check, 2 MG IV PUSH Q2H Y for CIWA 11-14 , #1 Prov:Valerio Mac DO 09/07/17 [LORazepam INJ] 2 MG/ML INJ No Conflict Check, 1 MG IV PUSH Q4H Y for CIWA 8 - 10, #1 Prov:Valerio Mac DO 09/07/17 Lorazepam (Ativan) 2 Mg Tab, 2 MG PO Q2H Y for CIWA 11-14, #1 TAB Prov:Valerio Mac DO 09/07/17 Lorazepam (Ativan) 1 Mg Tab, 1 MG PO Q4H Y for CIWA 8 - 10, #1 TAB Prov:Valerio Mac DO 09/07/17 [LORazepam INJ] 2 MG/ML INJ No Conflict Check, 2 MG IV PUSH Q15M Y for CIWA > 20 , #1 Prov:Valerio Mac DO 09/07/17 Current Medications Medications (Trade) Dose Ordered Sig/Gia Route Start Time Stop Time Status Last Admin (Ativan) 1 mg Q4H PRN PO 10/11/17 03:30 (Ativan Inj) 1 mg Q4H PRN IV PUSH 10/11/17 03:30 (Ativan) 2 mg Q2H PRN PO 10/11/17 03:30 (Ativan Inj) 2 mg Q2H PRN IV PUSH 10/11/17 03:30 (Ativan Inj) 2 mg Q1H PRN IV PUSH 10/11/17 03:30 (Ativan Inj) 2 mg Q15M PRN IV PUSH 10/11/17 03:30 (Romazicon Inj) 0.2 mg Q1M PRN IV PUSH 10/11/17 03:30 (Ativan) 0.5 mg Q12H PRN PO 10/11/17 03:45 (Ativan Inj) 0.5 mg Q12H PRN IM 10/11/17 03:45 (Benadryl) 50 mg HS PRN PO 10/11/17 03:45 (Benadryl Inj) 50 mg HS PRN IM 10/11/17 03:45 (Tylenol) 650 mg Q4H PRN PO 10/11/17 03:45 (Milk Of Magnesia Liq) 30 ml DAILY PRN PO 10/11/17 03:45 (Mag-Al Plus Susp Liq) 30 ml Q6H PRN PO 10/11/17 03:45 Sodium Chloride 1,000 ml @ 100 mls/hr Q10H IV 10/11/17 03:45 10/11/17 10:41 (Folate) 1 mg DAILY PO 10/11/17 09:00 10/11/17 08:23 (Lovenox Inj) 40 mg Q24H SQ 10/11/17 09:00 10/11/17 08:23 (Levemir Inj) 10 units HS SQ 10/11/17 21:00 (D50w (Vial) Inj) 50 ml UNSCH PRN IV PUSH 10/11/17 03:45 (Glucagon Inj) 1 mg UNSCH PRN OTHER 10/11/17 03:45 (NovoLOG SUPPLEMENTAL SCALE) 1 ACHS SLIDING SCALE SQ 10/11/17 08:00 10/11/17 08:23 (Habitrol 21 Mg Patch.24 Hr) 1 patch DAILY T-DERMAL 10/11/17 09:00 Miscellaneous Information 1 HS T-DERMAL 10/11/17 21:00 Social History Patient was born and raised in [place], she lives in [place] alone, she is single, has no kids, unemployed, supported by Social Security, her highest level of education is high school, Physical Exam Vital Signs Vital Signs Date Time Temp Pulse Resp B/P (MAP) Pulse Ox O2 Delivery O2 Flow Rate FiO2 10/11/17 07:05 98.2 80 16 114/59 (77) 10/10/17 18:27 97 I/O 10/11/17 10/11/17 10/12/17 08:00 16:00 00:00 Intake Total 600 ml Balance 600 ml Lab Results Test 10/11/17 10:27 Blood Urea Nitrogen 9 MG/DL Creatinine 0.89 MG/DL Random Glucose 151 MG/DL Calcium Level 7.8 MG/DL Sodium Level 133 MEQ/L Potassium Level 3.4 MEQ/L Chloride Level 100 MEQ/L Carbon Dioxide Level 22.3 MEQ/L Anion Gap 11 MEQ/L Estimat Glomerular Filtration Rate 63 ML/MIN Triglycerides Level 154 MG/DL Cholesterol Level 166 MG/DL LDL Cholesterol 81 MG/DL HDL Cholesterol 54.0 MG/DL Cholesterol/HDL Ratio 3.07 RATIO Mental Status Examination Appearance: Appropriate Consciousness: Alert Orientation: x4 Motor Activity: Normal gait Speech: Unremarkable Language: Adequate Fund of Knowledge: Adequate Attention and Concentration: Adequate Memory: Unremarkable Mood: Sad Affect: Irritable, Sad Thought Process & Associations: Intact Thought Content: Appropriate Hallucination Type: None Delusion Type: None Suicidal Ideation: Yes Suicidal Plan: No Suicidal Intention: No Homicidal Ideation: No Homicidal Plan: No Homicidal Intention: No Insight: Adequate Judgment: Adequate Assessment & Plan Problem List: (1) Bipolar II disorder, most recent episode major depressive ICD Codes: F31.81 - Bipolar II disorder Status: Acute Assessment & Plan: On psychiatric reevaluation the patient presents with severe symptoms of depression in the context of non compliance with medications and continues alcohol use. Patient reports anhedonia, lack of control in using alcohol, persistent suicidal thoughts and sadness. Patient has previous suicidal attempts, increased alcohol use, no identifiable protective factors, recent hospitalizations, recent suicidal attempts and active ideation. Patient has an increased risk of danger to herself at this moment and she needs psychiatric hospitalization for stabilization. She has a very increased risk of alcohol withdrawal. Will order [facility] protocol. MTV, b12, folate. We will start Remeron 50 mg at bedtime for depression and insomnia, Seroquel 25 mg twice a day for mood stabilization. Patient needs psychiatric admission for stabilization and safety. Motivation support and psychoeducation provided. cone worker intervention for psychosocial assessment, individual and group therapies, to coordinate a safe discharge. Assessment & Plan Estimated LOS: Constantine Reaves MD Oct 11, 2017 11:40
[2017-10-11 14:14] LABS: HEMOGLOBIN A1C 7.8 % (4.3-6.0)
[2017-10-11 18:00] VITALS: BP 121/71; PULSE 77; RESP 17; TEMP 98.4; O2SAT 98
[2017-10-11] MEDS: QUEtiapine FUMARATE 25 MG TAB PO SCH (20:49)
[2017-10-11] MEDS ORDERED: MIRTAZAPINE 15 MG TAB PO SCH (21:00)
[2017-10-11] MEDS ORDERED: INSULIN DETEMIR 100 UNITS/ML VIAL SQ SCH (21:00)
[2017-10-11] MEDS ORDERED: REMOVE OLD NICOTINE PATCH T-DERMAL SCH (21:00)
[2017-10-12 06:07] VITALS: BP 129/73; PULSE 77; RESP 16; TEMP 98; O2SAT 97
[2017-10-12] MEDS: LOW DOSE INSULIN NOVOLOG SUPPLEMENTAL SCALE SQ SCH ×2 (08:00→12:00)
[2017-10-12] MEDS: NICOTINE 21 MG/24 HR PATCH T-DERMAL SCH (09:00)
[2017-10-12] MEDS: ENOXAPARIN SODIUM 40 MG/0.4 ML SYRINGE SQ SCH (09:40)
[2017-10-12] MEDS: QUEtiapine FUMARATE 25 MG TAB PO SCH (09:40)
[2017-10-12] MEDS: FOLIC ACID 1 MG TAB PO SCH (09:40)
[2017-10-12] MEDS: SODIUM CHLOR 0.9% 1000 ML INJ 1,000 ML IV SCH (09:45)
--- NOTE | 2017-10-12 11:43 | HHI.PYPN ---
Subjective Remarks She was seen today for psychiatric reevaluation. Chart reviewed, case discussed with nursing charge. On psychiatric evaluation patient reports feeling hopeless, depressed, with increased guiltiness due to continuous alcohol use. She and says that she has been looking her mind reasons to live. Suicidal thoughts, but she denies plan or intentions. He is fully oriented 3, compliant with her medications, no significant side effects. Oriented 3. No agitation or aggressive behavior reported. Review of Systems Psychiatric: COMPLAINS OF: Depression, Suicidal Ideation Mental Status Examination Appearance: Appropriate Consciousness: Alert Orientation: x4 Motor Activity: Normal gait Speech: Unremarkable Language: Adequate Fund of Knowledge: Adequate Attention and Concentration: Adequate Memory: Unremarkable Mood: Sad Affect: Irritable, Sad Thought Process & Associations: Intact Thought Content: Appropriate Hallucination Type: None Delusion Type: None Suicidal Ideation: Yes Suicidal Plan: No Suicidal Intention: No Homicidal Ideation: No Homicidal Plan: No Homicidal Intention: No Insight: Fair Judgment: Impulsive Results Vitals/IOs Vital Signs Date Time Temp Pulse Resp B/P (MAP) Pulse Ox O2 Delivery O2 Flow Rate FiO2 10/12/17 06:07 98.0 77 16 129/73 (91) 97 Intake and Output 10/12/17 10/12/17 10/13/17 08:00 16:00 00:00 Intake Total 360 ml Balance 360 ml Assessment & Plan Problem List: (1) Bipolar II disorder, most recent episode major depressive ICD Codes: F31.81 - Bipolar II disorder Status: Acute Assessment & Plan: We will increase Remeron to 30 mg at bedtime for depression. Medical consult is is still pending. Brief supportive psychotherapy provided. Assessment & Plan Estimated LOS: days Justification for Cont. Inpt. Patient is acutely depressed, with suicidal ideation, she gets to continue psychiatric hospitalization for stabilization. Constantine Amaro MD Oct 12, 2017 11:43
[2017-10-12] MEDS ORDERED: METF500T PO (12:05)
--- NOTE | 2017-10-12 12:12 | PD.CONS ---
HPI Service [facility] Hospitalists Consult Requested By Psychiatry. Reason for Consult Medical management. Primary Care Physician Heather Sullivan MD Diagnoses: History of Present Illness Ms. Wright is a pleasant 67-year-old female with a history of depression, diabetes and alcoholism who was admitted to psychiatry unit due to depression. Hospitalist service was consulted on the day of discharge for medical management. At the time of this interview, patient is doing well. No chest pain, SOB, fever, chills. No changes in bowel or bladder habits. Review of Systems Except as stated in HPI: all other systems reviewed are Neg Past Family Social History Allergies: Coded Allergies: codeine (Verified Allergy, Severe, Hives, 10/10/17) Penicillins (Verified Allergy, Unknown, 10/10/17) Past Medical History Bipolar disorder, depression, hyperlipidemia, diabetes mellitus, hypertension Past Surgical History Left hip and knee surgery. Left hip replacement, hysterectomy Reported Medications Mirtazapine 15 Mg Tab 15 Mg PO HS Reported Lovastatin 10 Mg Tab 10 Mg PO DAILY Lisinopril 2.5 Mg Tab 2.5 Mg PO DAILY Family History No family history of heart disease, Alzheimer's or Parkinson's. Social History Patient was drinking 18 beers a day. Denies using tobacco or illicit drugs. Physical Exam Vital Signs Vital Signs Date Time Temp Pulse Resp B/P (MAP) Pulse Ox O2 Delivery O2 Flow Rate FiO2 10/12/17 06:07 98.0 77 16 129/73 (91) 97 10/11/17 18:00 98.4 77 17 121/71 (88) 98 Physical Exam GENERAL: This is a well-nourished, well-developed patient, in no apparent distress. SKIN: No rashes, ecchymoses or lesions. Warm and dry. HEAD: Atraumatic. Normocephalic. No temporal or scalp tenderness. EYES: Pupils equal round and reactive. No injection or drainage. ENT: Nose without bleeding, purulent drainage or septal hematoma. Airway patent. NECK: Trachea midline. No lymphadenopathy. Supple, nontender, no meningeal signs. CARDIOVASCULAR: Regular rate and rhythm without murmurs, gallops, or rubs. No JVD. RESPIRATORY: Clear to auscultation. Breath sounds equal bilaterally. No wheezes , rales, or rhonchi. GASTROINTESTINAL: Abdomen soft, non-tender, nondistended. No guarding. MUSCULOSKELETAL: Extremities without clubbing, cyanosis, or edema. NEUROLOGICAL: Awake and alert. Cranial nerves II through XII intact. No focal neurological deficits. Normal speech. Result Diagram: 10/11/17 1027 Assessment and Plan Assessment and Plan Ms. Wright is a 67-year-old female with a history of depression, alcoholism who is currently admitted to the psychiatry unit for depression. Hospitalist service was consulted for medical management. Patient is being discharged today. - Recent hyponatremia - Hyponatremia improved. Na 133. Patient is advised to abstain from alcohol which itself can cause hyponatremia. - Diabetes mellitus - Patient is advised to continue taking metformin. - Hypertension - Hyperlipidemia - Continue statin, lisinopril. Full code. Ambulation. Patient can be discharged from medical standpoint. Thank you for the consult. Chip Jackson DO Oct 12, 2017 12:12
[2017-10-12] MEDS ORDERED: METF1000 PO ×2 (12:13→12:14)
[2017-10-12] MEDS ORDERED: MIRTA15 PO (12:48)
[2017-10-12] MEDS ORDERED: LOVA10TA PO (12:48)
[2017-10-12] MEDS ORDERED: LISI2.5T3 PO (12:48)
[2017-10-12] MEDS ORDERED: SERO25TA PO (12:49)
--- NOTE | 2017-10-12 12:50 | HHI.DS ---
Psychiatry Discharge Summary Inpatient Psychiatric care?: Yes Advance Directive: No Reason Not Provided: Due to Patient Condition Mental Health AdvanceDirective: No Health Care Proxy: No Admission Admission Date Oct 10, 2017 at 17:49 Admission Diagnosis: (1) Bipolar II disorder, most recent episode major depressive ICD Code: F31.81 - Bipolar II disorder Brief History 10/10/2017 The patient is a 67-year-old woman, domiciled alone in her apartment [place], , unemployed, supported by Social Security benefits, with psychiatric history of depression, bipolar disorder, severe alcohol use disorder, 6 previous psychiatric hospitalizations, last hospitalization here at [facility] in September 2017, non compliance with medications, documentation reviewed, previous suicidal attempts, multiple ER visits due to alcohol use disorder, patient has history of alcohol withdrawal, past medical history significant for diabetes, hypertension, who presents to the emergency department due to suicidal ideations. Patient reports drinking 18 beers a day area at the time of this interview she denies any suicidal or homicidal ideations. She recently was at [facility]. She wants to get off alcohol. She denies any chest pain, shortness of breath, fever or chills. Denies any headache, vision changes. Denies any abdominal pain. Denies any changes in bowel or bladder habits. ED workup indicated hyponatremia with sodium 121. Admitted in observation fro severe hyponathremia and diabetes decompensation. On psychiatric evaluation patient hypoactive, distant, minimally communicative, endorsing symptoms of depression, says that she doesn' t have any reason to live for, or her family , she cannot get rid of using alcohol every day, she lost her job recently. She says that she has been drinking alcohol every day and thinking about committing suicide, she drinks 12- 16 beers per day started very early in the morning. Patient says that "if I would not be here right now, I would be jumping off a bridge or overdosing again ". Patient is irritable, tearful during the evaluation. Denies homicidal ideation, denies visual and auditory hallucinations. Patient is oriented 3, no attention deficit, no fluctuation of consciousness, no withdrawal symptoms reported or observed at this moment. 10/11/2017 patient was seen today for psychiatric reevaluation. Chart was reviewed. Case discussed with nursing charge, social security benefits interviewer/therapist. On psychiatric evaluation patient reports depressive symptoms, patient says that she has been feeling down, not finding meaning in life, she feels that she has nothing to live for. She reports hopelessness, helplessness, and persistent suicidal thoughts, no plan or intentions at this moment. Patient also reports continue use of alcohol. Denies the use of other drugs. The patient is fully oriented 3, no attention deficit, no fluctuation of consciousness. She denies homicidal ideation, she denies visual and auditory hallucinations. Tobacco Use In Past 30 Days: Refused To Answer Alcohol Use: 4 or More Times Per Week Hospital Course The patient was admitted due to suicidal ideation. He made a psychosocial and psychiatric assessment performed. She was admitted in the med psych unit due to symptoms of withdrawal and hyponatremia. Medicine was consulted and recommendations were followed. Patient was initiated in Remeron 15 mg at bedtime to help with depression and insomnia. The patient showed good response to psychotropics and psychotherapist. Extensive psychoeducation about the importance of avoiding alcohol and illegal drugs his sobriety was done. No agitation, no aggressive behavioral during this hospitalization. At the moment of discharge patient denies depressive symptoms, denies anxiety, denies suicidal and homicidal ideation, she denies visual and auditory hallucinations. Results Blood Pressure 129 / 73 Vital Signs Date Time Temp Pulse Resp B/P (MAP) Pulse Ox O2 Delivery O2 Flow Rate FiO2 10/12/17 06:07 98.0 77 16 129/73 (91) 97 Laboratory Tests Test 10/11/17 10:27 Random Glucose 151 MG/DL (74-106) Calcium Level 7.8 MG/DL (8.5-10.1) Sodium Level 133 MEQ/L (136-145) Potassium Level 3.4 MEQ/L (3.5-5.1) Estimat Glomerular Filtration Rate 63 ML/MIN (>89) Hemoglobin A1c 7.8 % (4.3-6.0) Triglycerides Level 154 MG/DL (42-150) Laboratory Results Test 10/11/17 10:27 Cholesterol Level 166 MG/DL (120-200) HDL Cholesterol 54.0 MG/DL (40.0-60.0) Hemoglobin A1c 7.8 % (4.3-6.0) LDL Cholesterol 81 MG/DL (0-99) Triglycerides Level 154 MG/DL (42-150) Summary of Major Lab Results NOne Summary of Procedures None Pending results at discharge: No Medications # of Antipsychotic meds at D/C: 0 Approp Antipsych med options 1 - Minimum of three failed multiple trials of monotherapy. 2 - Documented plan to taper to monotherapy due to previous use of multiple meds OR cross-taper in progress at D/C. 3 - Documentation of augmentation of Clozapine. 4 - Justification other than those listed in allowable values 1-3, document here : Discharge Discharge Date: Oct 12, 2017 Discharge Diagnosis: (1) Bipolar II disorder, most recent episode major depressive ICD Code: F31.81 - Bipolar II disorder Status: Acute Pt Condition on Discharge: Stable Discharge Disposition: Discharge Home Discharge Instructions Diet Instructions: Heart Healthy Diet Activities you can perform: Regular-No Restrictions Appointment Date: Oct 12, 2017 Discharge Time > 30 minutes Mental Status Examination Appearance: Appropriate Consciousness: Alert Orientation: x4 Motor Activity: Normal gait Speech: Unremarkable Language: Adequate Fund of Knowledge: Adequate Attention and Concentration: Adequate Memory: Unremarkable Mood: Sad Affect: Irritable, Sad Thought Process & Associations: Intact Thought Content: Appropriate Hallucination Type: None Delusion Type: None Suicidal Ideation: Yes Suicidal Plan: No Suicidal Intention: No Homicidal Ideation: No Homicidal Plan: No Homicidal Intention: No Insight: Fair Judgment: Impulsive Discharge/Advance Care Plan Health Problems: (1) Bipolar II disorder, most recent episode major depressive Goals to promote your health * To prevent worsening of your condition and complications * To maintain your health at the optimal level Directions to meet your goals Take your medications as prescribed Follow your dietary instruction Follow activity as directed Keep your appointments as scheduled Take your immunizations and boosters as scheduled If your symptoms worsen call your PCP, if no PCP go to Urgent Care Center or Emergency Room For 24/04 questions related to your inpatient stay or results of tests pending at discharge, please contact Dr. Constantine Amaro at Smoking is Dangerous to Your Health. Avoid second hand smoking Constantine Amaro MD Oct 12, 2017 12:50
[2017-10-12] MEDS ORDERED: MIRTAZAPINE 15 MG TAB PO SCH (21:00)
== END 2017-10-12 15:37 | disposition home or self-care (01) | DRG 885 ==
LOC: H4EA 17:49
PROVIDERS: ADMIT Psychiatry & Neurology Psychiatry; ATTEND Psychiatry & Neurology Psychiatry
DX: F31.81 Bipolar II disorder (principal); R45.851 Suicidal ideations; E87.1 Hypo-osmolality and hyponatremia; E11.9 Type 2 diabetes mellitus without complications; G47.00 Insomnia, unspecified; I10 Essential (primary) hypertension; E78.5 Hyperlipidemia, unspecified; F10.20 Alcohol dependence, uncomplicated; Z96.642 Presence of left artificial hip joint; Z91.5 Personal history of self-harm; Z91.14 Patient's other noncompliance with medication regimen
CPT/HCPCS: 80048; 80061; 82948; 83036; J1650; J1815; J7030; Q0163